=== PATIENT | male | born 1955 | race Caucasian/White ===

== ENCOUNTER 2020-10-12 16:12 | Emergency (ER) | payer OTHER, MEDICARE, SELFPAY ==
--- NOTE | ~2020-10-12 | XR_ITS ---
EXAMINATION: XR chest 1V portable 10/12/2020 17:12 INDICATION: Cough with shortness of breath PROCEDURE: AP portable chest COMPARISON: Comparison to multiple prior studies sequentially, with oldest reviewed study dated 05/07. FINDINGS: The lungs are clear. Status post median sternotomy for CABG. Cardiomegaly. There are residu al epicardial pacing leads. There are no pleural effusions. There is no pneumothorax suspected. IMPRESSION: 1: NO ACUTE CARDIOPULMONARY DISEASE. Reviewed, dictated and finalized at location A. [facility]
--- NOTE | 2020-10-12 16:40 | ECG_ITS ---
Measurements Intervals [place] Rate: 84 P: AR: 0 QRS: -54 QRSD: 152 T: 78 QT: 384 QTc: 454 Interpretive Statements ATRIAL FIBRILLATION RIGHT BUNDLE BRANCH BLOCK LEFT ANTERIOR FASCICULAR BLOCK ABNORMAL ECG Electronically Signed On 10-13-2020 7:49:54 CUSTOMER EXPERIENCE MANAGER by Romero Echavarria D.O.
[2020-10-12 16:41] VITALS: BP 177/74; PULSE 83; RESP 20; TEMP 36.7
[2020-10-12 17:04] LABS: Basophils Absolute Auto 0.03 K/mm3 (0.00-0.10); Basophils Percent Auto 0.2 % (0.0-1.0); Eosinophils Absolute Auto 0.23 K/mm3 (0.02-0.50); Eosinophils Percent Auto 1.6 % (1.0-6.0); Hematocrit 40.7 % (37.0-46.0); Hemoglobin 13.6 g/dL (12.4-15.3); Immature Granulocyte Absolute 0.07 K/mm3 (0.00-0.00); Immature Granulocyte Percent A 0.5 % (0.0-0.0); Lymphocytes Absolute Auto 1.92 K/mm3 (1.10-4.50); Lymphocytes Percent Auto 13.7 % (18.0-42.0); Mean Corpuscular HGB Conc 33.4 g/dL (32.0-36.0); Mean Corpuscular Hemoglobin 32.8 pg (27.0-31.0); Mean Corpuscular Volume 98.1 fL (78.0-102.0); Mean Platelet Volume 11.6 fl (8.7-11.0); Monocytes Absolute Auto 1.43 K/mm3 (0.10-0.90); Monocytes Percent Auto 10.2 % (2.0-11.0); Neutrophils Absolute Auto 10.3 K/mm3 (1.7-7.2); Neutrophils Percent Auto 73.8 % (50.0-70.0); Platelet Count Result 290 K/mm3 (150-420); Red Blood Count 4.15 M/mm3 (4.70-6.10); Red Cell Distribution Width 13.5 % (11.6-14.4)
[2020-10-12 17:12] LABS: Appearance Urine Clear (Clear); Bilirubin Urine Negative (Negative); Color Urine Yellow (Yellow); Glucose Urine UA Negative (Negative); Ketones Urine Negative (Negative); Leukocyte Esterase Ur Negative LEU/UL (Negative); Nitrate Urine Negative (Negative); Protein Urine 2+ (Negative); Urobilinogen Urine 0.2 mg/dL (0.2-1.0)
--- NOTE | 2020-10-12 17:15 | ED.SOB ---
HPI - SOB/Dyspnea General Chief Complaint: Upper Respiratory Infection Stated Complaint: bronchitis Time Seen by Provider: 10/12/20 17:15 Source: patient Mode of arrival: ambulatory Limitations: no limitations History of Present Illness HPI Narrative: 65-year-old man with a history of type 2 diabetes, ALEX and HTN who comes the emergency department complaining of 3 days of shortness of breath and cough which is productive of brown sputum. States he also has a sore throat and postnasal drainage. Patient states that he has had no fever, chest pain, leg swelling, sore throat, anosmia, ageusia or vomiting. He denies any sick exposures or exposures to COVID. He states he is out of the albuterol his doctor has given him to use over the last few years. MD elicited complaint: shortness of breath and cough Pertinent past history: diabetes Onset (ago): day(s) (3) Timing: constant Severity: moderate Exacerbating factors: nothing Relieving factors: nothing Associated symptoms: cough and sputum production Treatment prior to arrival: bronchodilator Related Data Home oxygen amount: none Allergies Allergy/AdvReac Type Severity Reaction Status Date / Time aspartame Allergy Severe Unknown Verified 10/12/20 17:21 cyclobenzaprine [Flexeril] Allergy Intermediate Unknown Verified 10/12/20 17:21 Penicillins Allergy Intermediate Unknown Verified 10/12/20 17:21 Review of Systems Constitutional: Constitutional: Denies chills, Denies fever(s) and Denies weakness Eyes: Eyes: Denies change in vision and Denies photophobia ENT: Denies dysphagia, Reports nasal congestion and Reports sore throat Cardiovascular: Cardiovascular: Denies chest pain and Denies radiating jaw, neck or arm pain Respiratory: Respiratory: Reports cough, Reports dyspnea and Reports wheezing Gastrointestinal: Gastrointestinal: Denies abdominal pain, Denies nausea and Denies vomiting Neurologic: Denies vertigo, Denies dizziness and Denies syncope Hematologic/Lymphatic: Hematologic/Lymphatic: Denies easy bleeding and Denies easy bruising Allergic/Immunologic: Allergic/Immunologic: Denies lip swelling, Denies throat swelling and Denies tongue swelling PMFSH Past Medical History Medical History Hyperlipidemia associated with type 2 diabetes mellitus Hypertension associated with diabetes Major depression, recurrent Obesity, morbid, BMI 50 or higher ALEX (obstructive sleep apnea) Type 2 diabetes mellitus Surgical History Surgical History H/O aortic valve replacement 2014 Social History Social History Smoking status: Former smoker Tobacco type: cigarettes Smoking end date: 10/18/06 Alcohol intake: never Substance use: never Substance use type: does not use Gender identity (if verbalized by the patient): Male Exam Const: General: no acute distress and alert Nutritional Appearance: obese Orientation/consciousness: patient oriented x3 Limitations: no limitations HENMT: Head: normal to inspection Ears: external ears normal, TM's normal bilaterally and EAC's normal General nose exam: Normal nares present Face and sinus: normal facial exam Mouth: Yes moist mucous membranes Throat: posterior oropharynx normal Eyes: Conjunctivae: conjunctivae normal Pupils: Equal, round and reactive pupils present EOM: EOMs intact bilaterally Resp: Effort & Inspection: normal respiratory effort and not labored Auscultation: clear to auscultation bilaterally, no rales, no rhonchi and no wheezes Cardio: Rate: regular rate Rhythm: regular rhythm Heart sounds: no murmurs Skin: General skin exam: normal color, no jaundice and no pallor Rashes: no rashes Neuro: General: patient oriented x3, moves all extremities, no focal motor deficits and CN's II-XI intact bilaterally Speech: normal speech Gait exam (N
[2020-10-12 17:17] LABS: Add Urine Microscopic? YES; Bacteria Urine Trace /hpf; Blood Urine Trace-Intact (Negative); RBC Urine 0-2 /hpf (0-2); Squamous Epithelial Cell Urine Occasional /hpf (Few); WBC Urine 0-3 /hpf (0-3)
[2020-10-12] MEDS: ALBUTEROL SULFATE (*SP) INHALER 4 PUFF INHALATION (17:21)
[2020-10-12 17:22] LABS: Alanine Aminotransferase 38 U/L (16-63); Albumin Level 3.4 g/dL (3.4-5.0); Alkaline Phosphatase 66 U/L (46-116); Anion Gap 11 mmol/L (8-16); Aspartate Amino Transferase 22 U/L (15-37); BNP 132 pg/mL (0-100); Bilirubin,Total 0.5 mg/dL (0.00-1.00); Blood Urea Nitrogen 15 mg/dL (7-18); Calcium 9.5 mg/dL (8.5-10.1); Carbon Dioxide 27 mmol/L (21-32); Chloride 97 mmol/L (98-108); Estimated Glomerular Filt Rate 55; Glucose 135 mg/dL (70-99); Osmolality Calculated 282 mOsm/kg (285-295); Sodium 135 mmol/L (136-145); Total Protein 8.4 g/dL (6.4-8.2); Troponin I 42.5 ng/L (0.00-60.4)
[2020-10-12 17:26] LABS: SARS-CoV-2 Ag Negative (Negative)
[2020-10-12] MEDS: predniSONE 20 MG TABLET 60 MG PO (17:57)
[2020-10-12] MEDS: DOXYCYCLINE HYCLATE 100 MG TABLET PO (17:57)
[2020-10-12 17:58] VITALS: PULSE 82; RESP 20; O2SAT 93
== END 2020-10-12 18:06 | disposition home or self-care (01) ==
PROVIDERS: Emergency Provider Emergency Medicine; PCP Nurse Practitioner Family
DX: J20.9 Acute bronchitis, unspecified (principal)
CPT/HCPCS: 36415; 71045; 80053; 81001; 83880; 84484; 85025; 87040; 87426; 93005; 99283; 99284; A9270; J7512

== ENCOUNTER 2020-12-04 11:51 | Outpatient (CLI) | payer OTHER, MEDICARE, SELFPAY ==
--- NOTE | 2020-12-04 11:55 | ECG_ITS ---
Measurements Intervals [place] Rate: 47 P: 15 CT: 171 QRS: -63 QRSD: 157 T: -14 QT: 449 QTc: 401 Interpretive Statements SINUS BRADYCARDIA ATRIAL PREMATURE COMPLEX RIGHT BUNDLE BRANCH BLOCK LEFT ANTERIOR FASCICULAR BLOCK BASELINE WANDER- V4 ABNORMAL ECG Electronically Signed On 12-04-2020 13:14:18 SENIOR HARDWARE DESIGN ENGINEER by Romero Echavarria D.O.
[2020-12-04 12:05] LABS: Basophils Absolute Auto 0.07 K/mm3 (0.00-0.10); Basophils Percent Auto 0.9 % (0.0-1.0); Eosinophils Absolute Auto 0.29 K/mm3 (0.02-0.50); Eosinophils Percent Auto 3.5 % (1.0-6.0); Hematocrit 41.8 % (37.0-46.0); Hemoglobin 13.9 g/dL (12.4-15.3); Immature Granulocyte Absolute 0.02 K/mm3 (0.00-0.00); Immature Granulocyte Percent A 0.2 % (0.0-0.0); Lymphocytes Absolute Auto 2.56 K/mm3 (1.10-4.50); Lymphocytes Percent Auto 31.1 % (18.0-42.0); Mean Corpuscular HGB Conc 33.3 g/dL (32.0-36.0); Mean Corpuscular Hemoglobin 32.9 pg (27.0-31.0); Mean Corpuscular Volume 99.1 fL (78.0-102.0); Mean Platelet Volume 11.5 fl (8.7-11.0); Monocytes Absolute Auto 0.63 K/mm3 (0.10-0.90); Monocytes Percent Auto 7.7 % (2.0-11.0); Neutrophils Absolute Auto 4.7 K/mm3 (1.7-7.2); Neutrophils Percent Auto 56.6 % (50.0-70.0); Platelet Count Result 231 K/mm3 (150-420); Red Blood Count 4.22 M/mm3 (4.70-6.10); Red Cell Distribution Width 13.5 % (11.6-14.4); White Blood Count 8.2 K/mm3 (4.8-10.8)
[2020-12-04 12:23] LABS: Hemoglobin A1C 6.3 % (<5.7)
[2020-12-04 12:27] LABS: Creatinine Urine 16.71 mg/dL (40-278)
[2020-12-04 12:38] LABS: Microalbumin Urine Random 126.5 mg/L
[2020-12-04 13:37] LABS: Alanine Aminotransferase 41 U/L (16-63); Albumin Level 3.8 g/dL (3.4-5.0); Alkaline Phosphatase 71 U/L (46-116); Anion Gap 7 mmol/L (8-16); Aspartate Amino Transferase 28 U/L (15-37); Bilirubin,Total 0.4 mg/dL (0.00-1.00); Blood Urea Nitrogen 17 mg/dL (7-18); Calcium 9.7 mg/dL (8.5-10.1); Carbon Dioxide 33 mmol/L (21-32); Chloride 100 mmol/L (98-108); Cholesterol 209 mg/dL (0-200); Estimated Glomerular Filt Rate > 60; Glucose 118 mg/dL (70-99); HDL Direct 46 mg/dL (40-60); LDL Cholesterol Calculated 117 mg/dL (<130); Osmolality Calculated 292 mOsm/kg (285-295); Potassium 4.5 mmol/L (3.5-5.1); Sodium 140 mmol/L (136-145); Total Protein 7.5 g/dL (6.4-8.2); Triglycerides 232 mg/dL (0-150)
--- NOTE | 2020-12-06 18:42 | WPDHOLTEREM ---
Holter/Event Monitor Holter/Event Monitor Date of procedure: 12/04/20 Procedure Type: 48 hour holter monitor Indications: Syncope Conclusion: 1. 48 hour holter monitor on 12/04/20. 2. Predominant rhythm is sinus or ectopic atrial rhythm. HR range 39-103 bpm; average HR 59 bpm. 3. There are 8,450 premature supraventricular complexes, 655 supraventricular couplets, and 3 supraventricular triplets. No supraventricular tachycardia or evidence of atrial fibrillation on available strips. 4. There are 883 premature ventricular complexes, 98 ventricular couplets, 18 ventricular bigeminy and 16 ventricular trigeminy. No ventricular tachycardia. 5. Left bundle branch block. The longest pause is 2.9 seconds at 22:49 and 22:59. 6. No symptoms available for correlation.
== END 2020-12-04 11:52 | disposition home or self-care (01) ==
PROVIDERS: PCP Nurse Practitioner Family; Visit Provider Nurse Practitioner Family
DX: R00.1 Bradycardia, unspecified (principal); R55 Syncope and collapse; I10 Essential (primary) hypertension; E11.59 Type 2 diabetes mellitus with other circulatory complications; E78.5 Hyperlipidemia, unspecified
CPT/HCPCS: 36415; 80053; 80061; 82043; 83036; 85025; 93005; 93225; 93226

== ENCOUNTER 2020-12-09 13:25 | Emergency (ER) | payer OTHER, MEDICARE, SELFPAY ==
--- NOTE | ~2020-12-09 | XR_ITS ---
EXAMINATION: XR chest 1V portable EXAM DATE: 12/09/2020 14:19 INDICATION: Syncope, extreme bradycardia. TECHNIQUE: Portable AP frontal chest x-ray was obtained. Comparison is made to prior examination from 10/12/2020. FINDINGS: The lungs are clear. There are no pleural effusions. The cardiac silhouette is enlarged. There is pulmonary vascular congestion. Sternotomy wires are present without findings to suggest ster nal dehiscence. There is no pneumothorax suspected. The bones and soft tissues are unremarkable. There is no significant interval change. IMPRESSION: Cardiomegaly, pulmonary vascular congestion. Reviewed, dictated and finalized at location B. MEASUREMENT ENGINEER
[2020-12-09 13:42] VITALS: BP 161/59; PULSE 45; RESP 20; TEMP 37; O2SAT 97
--- NOTE | 2020-12-09 13:45 | ED.SYNCOPE ---
HPI - Syncope General Chief Complaint: Arrhythmia/Palpitations Stated Complaint: ambulance Time Seen by Provider: 12/09/20 13:44 Source: patient, EMS and RN notes reviewed Mode of arrival: EMS Limitations: no limitations History of Present Illness HPI narrative: patient states he was walking down the [place] in his home and he had to use the wall to hold himself up because he felt like he was going to pass out. He said he has had a couple of these episodes last fall. He states that he had an aortic valve replacement years ago and at that time they recommended that he get a pacemaker but because of complications after his surgery he never had 1 placed. He recently had Holter monitor that was completed on Wednesday now 2 days ago. There was a 48 hour Holter monitor and he has not heard about the results yet. He does not recall that he ever passed out. complaint: almost passed out Onset (ago): minute(s) (20) -: second(s) Prodromal symptoms: lightheaded Injuries sustained associated with event: none Current symptoms: lightheaded History: previous syncopal episode Treatments prior to arrival: none Related Data Home Medications Medication Instructions Recorded Confirmed aspirin [Adult Aspirin Regimen] 81 mg PO QPM 12/09/20 12/09/20 atorvastatin 10 mg PO QPM 12/09/20 12/09/20 carvedilol [Coreg] 6.25 mg PO BID 12/09/20 12/09/20 Allergies Allergy/AdvReac Type Severity Reaction Status Date / Time aspartame Allergy Severe Unknown Verified 12/04/20 10:58 cyclobenzaprine [Flexeril] Allergy Intermediate Unknown Verified 12/04/20 10:58 Penicillins Allergy Intermediate Unknown Verified 12/04/20 10:58 Review of Systems Review of Systems: All systems reviewed & are unremarkable except as noted in HPI and below Constitutional: Constitutional: Denies chills and Denies fever(s) Eyes: Eyes: Reports no additional eye complaints ENT: Reports system reviewed and no additional complaints, except as documented Cardiovascular: Cardiovascular: Reports no additional cardiovascular complaints Respiratory: Respiratory: Reports no additional respiratory complaints [facility] Past Medical History Medical History (Updated 12/09/20 @ 23:17 by Padma Brown MD) Dyslipidemia Essential hypertension Gout Major depression, recurrent Morbid obesity Obstructive sleep apnea treated with BiPAP Type 2 diabetes mellitus Surgical History Surgical History (Updated 12/09/20 @ 21:36 by Wendy Cooper PA-C) History of aortic valve replacement (~2014) Family History Family History Father Kidney disease Mother Diabetes mellitus Heart disease Social History Social History (Updated 12/09/20 @ 21:37 by Wendy Cooper PA-C) Social History: Surrogate decision maker: Louisa Allred, . Code status: Full code. Smoking packs per day: 2 Smoking cigarettes per day: 40.0 Years smoked: 30 Smoking pack-years: 60.00 Smoking status: Former smoker Tobacco type: cigarettes Smoking end date: 10/18/06 Alcohol intake: former Substance use: never Substance use type: does not use Additional living arrangements comments: The patient lives in [place] with his .. Additional occupation/education comments: Retired. Gender identity (if verbalized by the patient): Male Spiritual care concerns: No Exam Const: General: healthy appearing and no acute distress Nutritional Appearance: well nourished and obese morbidly obese Orientation/consciousness: patient oriented x3 HENMT: Head: normal to inspection Ears: external ears normal General nose exam: Normal external nose present Face and sinus: normal facial exam Mouth: Yes lip normal and Yes moist mucous membranes Eyes: Conjunctivae: conjunctivae normal Pupils: Equal, round and reactive pupils present EOM: EOMs intact bilaterally Neck: Neck: normal visual inspection Resp:
--- NOTE | 2020-12-09 13:51 | ECG_ITS ---
Measurements Intervals [place] Rate: 45 P: -60 DC: 152 QRS: -50 QRSD: 140 T: -35 QT: 465 QTc: 404 Interpretive Statements SINUS BRADYCARDIA RIGHT BUNDLE BRANCH BLOCK LEFT ANTERIOR FASCICULAR BLOCK BASELINE ARTIFACT- I, II, III, AVL ABNORMAL ECG Electronically Signed On 12-09-2020 14:00:30 RD LAB TECHNICIAN by Romero Echavarria D.O.
[2020-12-09 14:08] LABS: Basophils Absolute Auto 0.05 K/mm3 (0.00-0.10); Basophils Percent Auto 0.5 % (0.0-1.0); Eosinophils Percent Auto 2.1 % (1.0-6.0); Hematocrit 42.1 % (37.0-46.0); Hemoglobin 14.2 g/dL (12.4-15.3); Immature Granulocyte Absolute 0.03 K/mm3 (0.00-0.00); Immature Granulocyte Percent A 0.3 % (0.0-0.0); Lymphocytes Percent Auto 23.9 % (18.0-42.0); Mean Corpuscular HGB Conc 33.7 g/dL (32.0-36.0); Mean Corpuscular Hemoglobin 33.1 pg (27.0-31.0); Mean Corpuscular Volume 98.1 fL (78.0-102.0); Monocytes Absolute Auto 0.66 K/mm3 (0.10-0.90); Monocytes Percent Auto 6.8 % (2.0-11.0); Neutrophils Absolute Auto 6.4 K/mm3 (1.7-7.2); Neutrophils Percent Auto 66.4 % (50.0-70.0); Platelet Count Result 234 K/mm3 (150-420); Red Blood Count 4.29 M/mm3 (4.70-6.10); Red Cell Distribution Width 13.3 % (11.6-14.4); White Blood Count 9.6 K/mm3 (4.8-10.8)
[2020-12-09 14:14] LABS: Add Urine Microscopic? YES; Appearance Urine Clear (Clear); Bilirubin Urine Negative (Negative); Blood Urine 2+ (Negative); Color Urine Yellow (Yellow); Glucose Urine UA Negative (Negative); Ketones Urine Negative (Negative); Leukocyte Esterase Ur Negative LEU/UL (Negative); Nitrate Urine Negative (Negative); Protein Urine 1+ (Negative); Urobilinogen Urine 0.2 mg/dL (0.2-1.0)
[2020-12-09 14:20] LABS: Bacteria Urine 1+ /hpf; RBC Urine 21-50 /hpf (0-2); Squamous Epithelial Cell Urine Few /hpf (Few); WBC Urine 0-3 /hpf (0-3)
[2020-12-09 14:21] LABS: Prothrombin Time 10.5 Seconds (9.50-12.10)
[2020-12-09 14:22] VITALS: PULSE 46
--- NOTE | 2020-12-09 14:23 | PC.NURSE ---
asked pt regarding code status. you need to ask my , she is coming here from [facility] .
[2020-12-09 14:25] LABS: BNP 99.7 pg/mL (0-100)
--- NOTE | 2020-12-09 14:28 | PC.NURSE ---
noted decrease intermittantly with heart rate, discussed again with pt regarding code status. pt states yes for cpr FULL CODE.
[2020-12-09 14:29] LABS: Alanine Aminotransferase 38 U/L (16-63); Albumin Level 3.3 g/dL (3.4-5.0); Alkaline Phosphatase 81 U/L (46-116); Anion Gap 10 mmol/L (8-16); Aspartate Amino Transferase 22 U/L (15-37); Bilirubin,Total 0.3 mg/dL (0.00-1.00); Blood Urea Nitrogen 18 mg/dL (7-18); Calcium 9.5 mg/dL (8.5-10.1); Carbon Dioxide 27 mmol/L (21-32); Chloride 102 mmol/L (98-108); Estimated CRCL calculation 67 ml/min; Estimated Glomerular Filt Rate 50; Glucose 185 mg/dL (70-99); Magnesium 1.7 mg/dL (1.8-2.4); Osmolality Calculated 294 mOsm/kg (285-295); Potassium 3.8 mmol/L (3.5-5.1); Sodium 139 mmol/L (136-145); Total Protein 7.6 g/dL (6.4-8.2); Troponin I 34.6 ng/L (0.00-60.4)
--- NOTE | 2020-12-09 14:41 | PC.NURSE ---
call placed to [facility] , spoke with speedy Sharpepowerhouse engineer. awaiting cardiology call back.
--- NOTE | 2020-12-09 14:42 | PC.NURSE ---
recurrent bradycardia with pauses. pt becomes lightheaded with pauses.
--- NOTE | 2020-12-09 15:22 | PC.NURSE ---
call placed to [facility] pt accepted by dr montenegro, awaiting hospitalist to return call for placement. pt resting per cot.
[2020-12-09 15:25] VITALS: BP 153/51; PULSE 44; RESP 20; O2SAT 97
--- NOTE | 2020-12-09 15:35 | PC.NURSE ---
defib/pacer pads applied as requested per dr hassan
[2020-12-09 16:02] VITALS: BP 176/95; PULSE 44; RESP 20; TEMP 37.1; O2SAT 95
--- NOTE | 2020-12-09 16:20 | PC.NURSE ---
report to justin nguyen at [place]. [facility] called for transport. awaiting arrival . at bedside. continues with symptomatic bradycardia( lightheaded, shaky when heart rate drops lower).
--- NOTE | 2020-12-09 16:46 | PC.NURSE ---
report to rosalva, ems staff.
== END 2020-12-09 16:47 | disposition short-term general hospital (02) ==
PROVIDERS: Emergency Provider Emergency Medicine; PCP Nurse Practitioner Family
DX: R00.1 Bradycardia, unspecified (principal); I10 Essential (primary) hypertension; E66.01 Morbid (severe) obesity due to excess calories; E78.5 Hyperlipidemia, unspecified; E11.9 Type 2 diabetes mellitus without complications; F33.9 Major depressive disorder, recurrent, unspecified; M10.9 Gout, unspecified; G47.33 Obstructive sleep apnea (adult) (pediatric); Z87.891 Personal history of nicotine dependence; Z79.82 Long term (current) use of aspirin; Z95.2 Presence of prosthetic heart valve
CPT/HCPCS: 36415; 71045; 80053; 81001; 83735; 83880; 84484; 85025; 85610; 93005; 99285

== ENCOUNTER 2020-12-09 17:18 | Inpatient (IN) | payer OTHER, MEDICARE, SELFPAY ==
[2020-12-09] VITALS (10 sets, daily range): BP systolic 132–156; BP diastolic 52–94; PULSE 60–86; RESP 15–22; TEMP 36.8–37; O2SAT 94–98; BMI 52.5
--- NOTE | ~2020-12-09 | XR_ITS ---
EXAMINATION: XR chest 1V portable DATE: 12/10/2020 17:50 INDICATION: Pacer placement. TECHNIQUE: A single frontal view of the chest was obtained on 2 radiographs. COMPARISON: Chest single view 12/09/2020, chest CT 11/16/2014 FINDINGS: There are mild airspace opacities in the lower lung zones. No pleural effusion or pneumotho rax. Cardiomegaly is noted. Median sternotomy wires are noted. There is a left chest wall pacer with leads in the right atrium and right ventricle. Epicardial pacer wires are noted. IMPRESSION: 1. Mild airspace opacities in the lower lung zones, consistent with atelectasis versus pneumonia. 2. Cardiomegaly. Reviewed, dictated and finalized at location A. MATIC HOIST OPERATOR
--- NOTE | ~2020-12-09 | XR_ITS ---
EXAMINATION: XR chest 2V DATE: 12/11/2020 17:07 INDICATION: Pacer placement. TECHNIQUE: Frontal and lateral views of the chest were obtained. COMPARISON: Chest single view 12/10/2020, chest CT 11/16/2014 FINDINGS: There is no pneumonia, pleural effusion, or pneumothorax. Cardiomegaly is noted. There are changes of heart valve replacement. There is a left chest wall pacer with leads in the right atrium a nd right ventricle. Epicardial pacer wires are noted. IMPRESSION: 1. Cardiomegaly. Reviewed, dictated and finalized at location A. DEND DEPOSIT VOUCHER CLERK IMPRESSION: 1. Cardiomegaly.
--- NOTE | 2020-12-09 17:15 | PC.NURSE ---
patient here via EMS with bradycardia being externally paced. see initial notes. initial assessment done. assessments documented. alert. oriented. hx of AVR in 2014 with reported tissue valve. not on anticoagulants. has needed PPM since that time but hx of infection. increased syncopal episodes lately with abnormal monitor. today EMS was initially called around 1300 for syncope. patient taken to [facility] with bradycardia. HR in the 40's but SB with frequent pauses. noted to have diaphoresis and dizziness. patient being transferred to this ICU as direct admission this afternoon by EMS when patient's HR dropped to 26 requiring external pacing. now here in our ED.
--- NOTE | 2020-12-09 17:23 | ECG_ITS ---
Measurements Intervals [place] Rate: 29 P: MS: 0 QRS: -59 QRSD: 165 T: 89 QT: 494 QTc: 346 Interpretive Statements SINUS RHYTHM WITH COMPLETE HEART BLOCK SLOW JUNCTIONAL ESCAPE RHYTHM LEFT AXIS DEVIATION RIGHT BUNDLE BRANCH BLOCK LEFT ANTERIOR FASCICULAR BLOCK ABNORMAL ECG Electronically Signed On 12-16-2020 8:47:29 WET END SUPERVISOR by Romero Echavarria D.O.
--- NOTE | 2020-12-09 17:25 | PC.NURSE ---
external pacer turned off to do EKG. ED provider in room. see EKG. patient remained alert and oriented. placed on our defib paced and external pacer turned back on at rate of 60 at demand with 60m. tolerating well. waiting for final decision for temporary pacer today or plan for PPM.
--- NOTE | 2020-12-09 17:53 | WPDMODSED ---
Moderate Sedation Note-Pt Data Patient Data Diagnosis: Syncope with acquired complete heart block Present Complaint: syncope Procedure to be performed/Plan: temporary transvenous pacemaker Allergies Allergy/AdvReac Type Severity Reaction Status Date / Time aspartame Allergy Severe Unknown Verified 12/04/20 10:58 cyclobenzaprine [Flexeril] Allergy Intermediate Unknown Verified 12/04/20 10:58 Penicillins Allergy Intermediate Unknown Verified 12/04/20 10:58 Home Medications Medication Instructions Recorded Confirmed Type aspirin 81 mg tablet,delayed 81 mg PO DAILY #90 tablet 03/27/20 12/09/20 Rx release lisinopril 40 mg tablet 40 mg PO DAILY #90 tablet 09/09/20 12/09/20 Rx metformin 1,000 mg tablet 1,000 mg PO BID #180 tablet 09/30/20 12/09/20 Rx sertraline 100 mg tablet 100 mg PO DAILY #90 tablet 09/30/20 12/09/20 Rx albuterol sulfate 2 puff INHALATION Q6H PRN #18 g 10/12/20 12/09/20 Rx benzonatate 200 mg capsule 200 mg PO BID PRN #20 cap 10/14/20 12/09/20 Rx carvedilol 6.25 mg tablet See Rx Instructions .ROUTE 10/30/20 12/09/20 Rx .COMPLEX #60 tablet bumetanide 1 mg tablet 1 mg PO DAILY #90 tablet 11/26/20 12/09/20 Rx allopurinol 300 mg tablet 300 mg PO DAILY #30 tablet 11/29/20 12/09/20 Rx atorvastatin 10 mg tablet 10 mg PO DAILY #30 tablet 12/04/20 12/09/20 Rx Sedation/Anesthesia: No previous sedation/anesthesia problems (including family history). [facility] Past Medical History Medical History Hyperlipidemia associated with type 2 diabetes mellitus Hypertension associated with diabetes Major depression, recurrent Obesity, morbid, BMI 50 or higher ALEX (obstructive sleep apnea) Type 2 diabetes mellitus Surgical History Surgical History H/O aortic valve replacement 2014 Social History Social History Smoking status: Former smoker Tobacco type: cigarettes Smoking end date: 10/18/06 Alcohol intake: never Substance use: never Substance use type: does not use Gender identity (if verbalized by the patient): Male Mod Sed Physical Exam Physical Exam Pre Procedural Exam: Normal: Throat, Airway, Lungs, Neuro Exam and Extremities and Variation: Appearance ( morbidly obese white male), Neck ( cannot assess for JVD given obesity), Heart Size ( PMI not palpable), Heart Rate ( bradycardic) and Heart Rhythm ( sinus rhythm with complete heart block) Hours since solid foods: 12 Hours since liquid intake: 12 ASA Classification/Sedation ASA Classification/Sedation ASA Class: II Emergent: No Risks: Risks, benefits and alternatives explained and patient/family accepted plan for sedation. Patient re-evaluated immediately prior to sedation.
--- NOTE | 2020-12-09 18:02 | PC.NURSE ---
report given to clinical lab scientist nurses. patient released to their care. patient taken to the clinical lab scientist on ED stretcher
--- NOTE | 2020-12-09 18:15 | P.SEDATION_ITS ---
Moderate Sedation Note-Pt Data Patient Data Diagnosis: acquired complete heart block Allergies Allergy/AdvReac Type Severity Reaction Status Date / Time aspartame Allergy Severe Unknown Verified 12/04/20 10:58 cyclobenzaprine [Flexeril] Allergy Intermediate Unknown Verified 12/04/20 10:58 Penicillins Allergy Intermediate Unknown Verified 12/04/20 10:58 Home Medications Medication Instructions Recorded Confirmed Type aspirin 81 mg tablet,delayed 81 mg PO DAILY #90 tablet 03/27/20 12/09/20 Rx release lisinopril 40 mg tablet 40 mg PO DAILY #90 tablet 09/09/20 12/09/20 Rx metformin 1,000 mg tablet 1,000 mg PO BID #180 tablet 09/30/20 12/09/20 Rx sertraline 100 mg tablet 100 mg PO DAILY #90 tablet 09/30/20 12/09/20 Rx albuterol sulfate 2 puff INHALATION Q6H PRN #18 g 10/12/20 12/09/20 Rx benzonatate 200 mg capsule 200 mg PO BID PRN #20 cap 10/14/20 12/09/20 Rx carvedilol 6.25 mg tablet See Rx Instructions .ROUTE 10/30/20 12/09/20 Rx .COMPLEX #60 tablet bumetanide 1 mg tablet 1 mg PO DAILY #90 tablet 11/26/20 12/09/20 Rx allopurinol 300 mg tablet 300 mg PO DAILY #30 tablet 11/29/20 12/09/20 Rx atorvastatin 10 mg tablet 10 mg PO DAILY #30 tablet 12/04/20 12/09/20 Rx Sedation/Anesthesia: No previous sedation/anesthesia problems (including family history). [facility] Past Medical History Medical History Hyperlipidemia associated with type 2 diabetes mellitus Hypertension associated with diabetes Major depression, recurrent Obesity, morbid, BMI 50 or higher ALEX (obstructive sleep apnea) Type 2 diabetes mellitus Surgical History Surgical History H/O aortic valve replacement 2014 Social History Social History Smoking status: Former smoker Tobacco type: cigarettes Smoking end date: 10/18/06 Alcohol intake: never Substance use: never Substance use type: does not use Gender identity (if verbalized by the patient): Male ASA Classification/Sedation ASA Classification/Sedation Risks: Risks, benefits and alternatives explained and patient/family accepted plan for sedation. Patient re-evaluated immediately prior to sedation.
--- NOTE | 2020-12-09 18:34 | WPDCARDPROC ---
Cardiac Cath Procedure Note Date of procedure:: 12/09/20 Performing physician:: Manuel Masterson MD Indication:: acquired complete heart block Brief clinical history:: this is a 65-year-old man who underwent aortic valve replacement for severe aortic regurgitation in 2014. At that time he had normal coronary angiograms. He now has been experiencing syncopal episodes of recent onset and was found in I emergency room at [facility] to have high-grade AV block. He was transferred here with a transcutaneous pacemaker in place but it was not capturing reliably. I was therefore asked to come in and put a temporary pacing wire in. Procedure Procedure performed:: Temporary transvenous pacemaker Sedation/Medication given:: no sedation Access site:: right femoral vein Estimated blood loss:: minimal Procedure note:: patient was brought to the cardiac catheterization lab where the right femoral triangle was prepared and draped in the usual fashion. Anesthesia was provided with 1% lidocaine infiltrated locally. Using the modified Seldinger technique a 6 Macanese sheath was placed into the femoral vein. Following this I used a balloon tipped transvenous pacing wire to be placed in the venous circulation into the right atrium, across the tricuspid valve and into the right ventricular apex. The balloon was deflated and the lead was imbedded into the apex of the RV. Following this we connected it to the temporary transvenous generator and the device was set at 80 beats per minute. Threshold was checked and was less than 0.1 volts. Finally device was programmed at 80 beats per minute with an output of 3 volts. The temporary transvenous pacing patches were then taken off and disconnected. Patient will be taken to the ICU for recovery in anticipation of permanent pacemaker implant likely tomorrow. Findings:: High-grade AV block Conclusion:: acquired complete heart block with implantation of a temporary transvenous pacemaker from the right femoral vein emergently as described above for control of the cardiac rhythm in this gentleman with recurrent syncope and complete heart block. Manuel Masterson MD [facility]
--- NOTE | 2020-12-09 19:08 | PM.CNCAR ---
Assessment and Plan Assessment and plan (1) Syncope: Code(s): R55 - Syncope and collapse Status: Acute Assessment and Plan: Due to conduction abnormalities/complete heart block. (2) Hyperlipidemia associated with type 2 diabetes mellitus: Code(s): E11.69 - Type 2 diabetes mellitus with other specified complication; E78.5 - Hyperlipidemia, unspecified Status: Acute Assessment and Plan: On statin. (3) Hypertension associated with diabetes: Code(s): E11.59 - Type 2 diabetes mellitus with other circulatory complications; I10 - Essential (primary) hypertension Status: Acute Assessment and Plan: Stable. (4) Obesity, morbid, BMI 50 or higher: Code(s): E66.01 - Morbid (severe) obesity due to excess calories Status: Acute (5) ALEX (obstructive sleep apnea): Code(s): G47.33 - Obstructive sleep apnea (adult) (pediatric) Status: Acute (6) Complete heart block: Code(s): I44.2 - Atrioventricular block, complete Status: Acute Assessment and Plan: Notified Dr. Masterson for temporary pacemaker this evening. Ultimately will need permanant pacemaker. He is on Coreg which could contribute some to bradycardia and AV block but generally not to this extent. Will stop Coreg. (7) History of aortic valve replacement with bioprosthetic valve: Code(s): Z95.3 - Presence of xenogenic heart valve Status: Acute Assessment and Plan: Obtain echo. History of Present Illness History of Present Illness Consult date/time: 12/09/20 19:08 Reason for consult: Symptomatic bradycardia. 65 yr old man who was a cardiology patient of Dr. Gaines who he has not seen in 2 years presented to [place] with recurrent dizziness/syncope. He has passed out twice in last few months. He has a history or bioprothetic AVR in 2015 at [facility], hypertension, dyslipidemia, DM, obesity, ALEX. Initially in [facility] ED his EKG shows sinus bradycardia at 45 bpm with RBBB, LAFB, then it changed to complete heart block in 20's bpm. He was started on transcutaneous pacing and it would at times not capture. En route in ambulance he was noted not to capture and HR dropped and noted a low BP of 70's systolic. Upon his arrival to our ED, he was paced and had BP 150's systolic. His underlying rhythm is sinus rhythm with complete heart block in 20's bpm. He was no longer having dizziness. Denies chest pain or sob. Spoke with Dr. Masterson who had to return to hospital as he had just left to come in and place a temporary pacemaker. Reason For Visit: bradycardia Review of Systems Constitutional: Constitutional: Reports as per HPI, Denies chills and Denies fatigue Cardiovascular: Cardiovascular: Reports as per HPI, Denies chest pain, Reports lightheadedness and Denies dyspnea Respiratory: Respiratory: Reports as per HPI and Denies dyspnea Gastrointestinal: Gastrointestinal: Reports as per HPI and Denies abdominal pain Genitourinary: Genitourinary: Reports as per HPI and Denies dysuria Musculoskeletal: Musculoskeletal: Reports as per HPI Neurologic: Reports as per HPI, Reports dizziness and Reports syncope PMFSH Past Medical History Medical History Hyperlipidemia associated with type 2 diabetes mellitus Hypertension associated with diabetes Major depression, recurrent Obesity, morbid, BMI 50 or higher ALEX (obstructive sleep apnea) Type 2 diabetes mellitus Surgical History Surgical History H/O aortic valve replacement 2014 Social History Social History Smoking status: Former smoker Tobacco type: cigarettes Smoking end date: 10/18/06 Alcohol intake: never Substance use: never Substance use type: does not use Gender identity (if verbalized by the patient): Male Meds Home Medications
--- NOTE | 2020-12-09 19:57 | PC.NURSE ---
This patient, Primitivo Allred, was admitted to Intensive Care Unit-icu 8 on 12/09/2020 at 1900. Patient/family oriented to hospital policies and general routines including ID bracelet, bed and alarms, visiting hours, pain management, procedures, bathroom and other care routines, personal items, smoking policy, room service/diet, and visiting hours. Information on how to activate the Rapid Response Team has been discussed. Patient/Family are encouraged to report perceived risks to care and to ask questions if they do not understand what they are told or what they should do.
--- NOTE | 2020-12-09 20:15 | PM.IMHP ---
H&P: HPI History of Present Illness Date/Time: 12/09/20 17:15. The patient was seen and evaluated in the emergency department upon arrival. Chief Complaint: Symptomatic bradycardia with sinus pauses. Narrative: This is a 65-year-old male with morbid obesity, obstructive sleep apnea, hypertension, hyperlipidemia, and type 2 diabetes mellitus who was being transported to [facility] as a direct admission to the intensive care unit when he went into complete heart block with hypotension and was diverted to the emergency department. The patient had a bioprosthetic tissue aortic valve replacement in 2014 at [facility] for significant aortic stenosis and at that time the plan was to insert pacer wires that he would most likely need at some point in time however that was not able to be done as the procedure was complicated by infection. The patient has known to some degree that he has sick sinus syndrome however when he began having syncopal episodes in June 2020, he did not seek treatment. Recently he has been having several episodes of lightheadedness a day with frequent near syncopal episodes. Luckily his primary care provider refused to refill his prescription medications without an office visit and at that time he mentioned these frequent episodes. A 48 hour event monitor was ordered which showed multiple sinus pauses up to 2.9 seconds. In any regard, he was having increasing near syncopal episodes today and presented to the emergency department in [place]. He was found to have a high degree AV block and transfer to [place] was initiated. Dr. Echavarria (cardiology) was consulted and he indicated to the nursing excavating supervisor that he would see the patient in consultation. I was then asked to admit the patient to the hospitalist service but was reluctant to do so without the superintendent marine speaking with the ED physician as I felt that an ethylbenzene cracking supervisor needed to be involved in the transfer process should his condition deteriorate. I voiced concerns to the power house engineer who spoke with the superintendent marine,and he felt comfortable taking the patient in transfer without any other recommendations or consulting Interventional Cardiology. Dr. Boone agreed to accept the patient to the ICU, and I requested that Dr. Gloria sned the patient via ACLS ambulance with pacer pads in place and atropine at bedside. En route to the hospital, the patient became profoundly bradycardic in the 20s with near loss of consciousness and hypotension, and he was diverted to the [place] emergency department. Transcutaneous pacing was not capturing reliably and he is now status post temporary transvenous pacemaker per Dr. Masterson. At the time my evaluation the patient complains of discomfort from the transcutaneous pacing but he has no other specific complaints. He is not lightheaded at this time and denies vertigo, chest pain, palpitations, shortness of breath, nausea, vomiting, and sweats. [facility] Past Medical History Medical History (Updated 12/09/20 @ 21:40 by Wendy Cooper PA-C) Dyslipidemia Essential hypertension Gout Major depression, recurrent Morbid obesity Obstructive sleep apnea treated with BiPAP Type 2 diabetes mellitus Surgical History Surgical History (Updated 12/09/20 @ 21:36 by Wendy Cooper PA-C) History of aortic valve replacement (~2014) Family History Family History Father Kidney disease Mother Diabetes mellitus Heart disease Social History Social History (Updated 12/09/20 @ 21:37 by Wendy Cooper PA-C) Social History: Surrogate decision maker: Louisa Allred, . Code status: Full code. Smoking packs per day: 2 Smoking cigarettes per day: 40.0 Years smoked: 30 Smoking pack-years: 60.00 Smoking status: Former smoker Tobacco type: cigarettes Smoking end date: 10/18/06 Alcohol intake: former Substance us
[2020-12-09 21:21] LABS: Glucose Point of Care 99 (65-105)
[2020-12-09] MEDS: ACETAMINOPHEN 325 MG TABLET 650 MG PO (22:58)
--- NOTE | 2020-12-09 23:01 | ED.ARRPALP ---
HPI - Arrhythmia/Palpitations General Chief Complaint: Arrhythmia/Palpitations Stated Complaint: bradycardia Time Seen by Provider: 12/09/20 17:31 Source: patient and EMS Mode of arrival: EMS Limitations: no limitations History of Present Illness HPI narrative: This is a 65 year old male with history of aortic valve replacement, gout, hyperlipidemia, DM who presents via EMS from [place] [facility] for evaluation of bradycardia. PAtient reports he has been having episodes of syncope. He had a holter monitor 5 days ago that showed sinus pauses. Today patient was evaluated in [place] ER for episodes of near syncope. He was found to have HR in the 20s and 30s per ER note at [place]. He was accepted by the hospitalist service with Dr. Echavarria(cardiology) consulting. He was being transferred to the ICU. In route to [place], patient became diaphoretic, dizzy, lethargic and his heart rated dropped into the 20s. EMS gave patient versed and they started transcutaneously pacing patient. He arrived awake and alert. HE denies dizziness , chest pain or shortness of breath. His only complaint is pain from external pacing. Prior to patient's arrival to ER, Dr. Echavarria was notified of change in patient condition. He states he has called the utilization specialist. PAtient reports his software sales consultant is Dr. Gaines but he has not seen him in 2 years. He would like Dr. Echavarria to be his software sales consultant because he will seen patient in [place]. Related Data Home Medications Medication Instructions Recorded Confirmed aspirin [Adult Aspirin Regimen] 81 mg PO QPM 12/09/20 12/09/20 atorvastatin 10 mg PO QPM 12/09/20 12/09/20 carvedilol [Coreg] 6.25 mg PO BID 12/09/20 12/09/20 Allergies Allergy/AdvReac Type Severity Reaction Status Date / Time aspartame Allergy Severe Unknown Verified 12/04/20 10:58 cyclobenzaprine [Flexeril] Allergy Intermediate Unknown Verified 12/04/20 10:58 Penicillins Allergy Intermediate Unknown Verified 12/04/20 10:58 Review of Systems Review of Systems: All systems reviewed & are unremarkable except as noted in HPI and below PMFSH Past Medical History Medical History (Updated 12/09/20 @ 23:17 by Padma Brown MD) Dyslipidemia Essential hypertension Gout Major depression, recurrent Morbid obesity Obstructive sleep apnea treated with BiPAP Type 2 diabetes mellitus Surgical History Surgical History (Updated 12/09/20 @ 21:36 by Wendy Cooper PA-C) History of aortic valve replacement (~2014) Family History Family History Father Kidney disease Mother Diabetes mellitus Heart disease Social History Social History (Updated 12/09/20 @ 21:37 by Wendy Cooper PA-C) Social History: Surrogate decision maker: Louisa Allred, . Code status: Full code. Smoking packs per day: 2 Smoking cigarettes per day: 40.0 Years smoked: 30 Smoking pack-years: 60.00 Smoking status: Former smoker Tobacco type: cigarettes Smoking end date: 10/18/06 Alcohol intake: former Substance use: never Substance use type: does not use Additional living arrangements comments: The patient lives in [place] with his .. Additional occupation/education comments: Retired. Gender identity (if verbalized by the patient): Male Spiritual care concerns: No Exam Const: General: no acute distress and alert Orientation/consciousness: patient oriented x3 HENMT: Head: abnormal to inspection Eyes: EOM: EOMs intact bilaterally Chest: Chest palpation & inspection: normal inspection of the chest Resp: Effort & Inspection: normal respiratory effort and no retractions Auscultation: clear to auscultation bilaterally Cardio: Rate: bradycardic Heart sounds: Murmur heart sound present GI: GI Palp: Yes Soft to palpation, No Tenderness to palpation present (GI) and No Guarding due to palpation present (GI) Ausc
[2020-12-10] VITALS (22 sets, daily range): BP systolic 140–174; BP diastolic 70–94; PULSE 64–92; RESP 16–95; TEMP 36.6–37.1; O2SAT 94–100
--- NOTE | 2020-12-10 | ECHO_ITS ---
Patient Info Name: Primitivo Allred Age: 65 years : 1955 Gender: Male Ht: 70 in Wt: 353 lbs BSA: 2.90 m2 HR: 80 bpm BP: 149 / 76 mmHg Heart Rhythm: Paced Technical Quality: Poor Exam Date: 12/10/2020 9:31 AM Exam Location: [facility] Patient Status: Inpatient Admit Date: 12/09/2020 Staff Ordering Physician: Romero Echavarria DO Enterprise Application Analyst: Melo Craven RDCS Attending Provider: Gerard Balderrama MD Referring Physician: Jericho BAJWA; Exam Type: CA echo dop color flow w con Study Info Indications I44.2 - Atrioventricular block, complete Complete two-dimensional, color flow and Doppler transthoracic echocardiogram is performed with contrast to opacify the left ventricle and to improve the deliniation of the left ventricle endocardial borders. Contrast/Agitated Saline Contrast/Ag. Saline: Definity Amount: 3.00 ml Administered By: Katherin Juarez RN Existing IV Access: Yes Reason for Poor Study: patient body habitus History/Risk Factors Complete heart block; BioAVR 2015, HTN, DM2, syncope. Summary 1. Technically suboptimal study due to poor sonographic images. 2. Left ventricular chamber dimension is moderately enlarged. 3. Definity contrast administered improved wall motion interpretation. 4. Left ventricular systolic function is normal, estimated at 55-60%. 5. There is moderately increased left ventricular wall thickness. 6. The left ventricular diastolic function is grade III diastolic dysfunction. 7. E/e' 17 is elevated. 8. The aortic valve is not well visualized. Bioprosthetic aortic valve by history. Left Ventricle Technically suboptimal study due to poor sonographic images. Definity contrast administered improved wall motion interpretation. E/e' 17 is elevated. Left ventricular chamber dimension is moderately enlarged. Left ventricular systolic function is normal, estimated at 55-60%. There is moderately increased left ventricular wall thickness. The left ventricular diastolic function is grade III diastolic dysfunction. Right Ventricle Right ventricular chamber dimension is not well visualized. Left Atria Left atrial chamber dimension is not well visualized. Right Atria Right atrial chamber dimension is not well visualized. Aortic Valve The aortic valve is not well visualized. Bioprosthetic aortic valve by history. There is no aortic valve stenosis based on valve gradients and valve area. There is no aortic valve regurgitation. Pulmonic Valve The pulmonic valve is not well visualized. Mitral Valve There is no mitral valve stenosis. There is no mitral valve regurgitation. Tricuspid Valve The tricuspid valve leaflets are not well visualized. Pericardium/Pleural There is no pericardial effusion. Inferior Vena Cava Inferior vena cava is not well visualized. Aorta The aortic root size at the sinus of Valsalva is not well visualized. Left Ventricular Outflow Tract Name Value Normal LVOT 2D LVOT Diameter 2.14 cm LVOT Doppler LVOT Peak Gradient 9 mmHg LVOT Mean G
[2020-12-10] MEDS: ZOLPIDEM TARTRATE (*CRX) 5 MG TABLET PO (01:06)
[2020-12-10 04:52] LABS: Hematocrit 41.4 % (42.0-52.0); Hemoglobin 13.8 g/dL (14.0-18.0); Mean Corpuscular HGB Conc 33.3 g/dl (32-36); Mean Corpuscular Hemoglobin 33.3 pg (26-34); Platelet Count Result 124 k/mm3 (150-375); Red Blood Count 4.14 M/mm3 (4.6-6.20); Red Cell Distribution Width 13.5 % (11.5-14.5)
[2020-12-10 05:14] LABS: Prothrombin Time 13.3 Seconds (11.1-14.7)
[2020-12-10 05:15] LABS: Partial Thromboplastin Time 29.2 SECONDS (22.3-36.8)
--- NOTE | 2020-12-10 07:48 | PM.PNCARD ---
Progress Note: A&P Assessment and Plan (1) Syncope: Code(s): R55 - Syncope and collapse Status: Deleted Assessment and Plan: Due to conduction abnormalities/complete heart block. (2) Hyperlipidemia associated with type 2 diabetes mellitus: Code(s): E11.69 - Type 2 diabetes mellitus with other specified complication; E78.5 - Hyperlipidemia, unspecified Status: Acute Assessment and Plan: On statin. (3) Hypertension associated with diabetes: Code(s): E11.59 - Type 2 diabetes mellitus with other circulatory complications; I10 - Essential (primary) hypertension Status: Acute Assessment and Plan: High off Coreg. Start Amlodipine 10 mg daily. (4) Obesity, morbid, BMI 50 or higher: Code(s): E66.01 - Morbid (severe) obesity due to excess calories Status: Acute (5) ALEX (obstructive sleep apnea): Code(s): G47.33 - Obstructive sleep apnea (adult) (pediatric) Status: Acute (6) Complete heart block: Code(s): I44.2 - Atrioventricular block, complete Status: Acute Assessment and Plan: Dr. Masterson placed temporary pacemaker on 12/09/20. He is scheduled permanant pacemaker this afternoon with Dr. Masterson. . He is on Coreg which could contribute some to bradycardia and AV block but generally not to this extent. Stopped Coreg. (7) History of aortic valve replacement with bioprosthetic valve: Code(s): Z95.3 - Presence of xenogenic heart valve Status: Acute Assessment and Plan: Obtain echo. Subjective Date/time seen: 12/10/20 07:48 Denies dizziness, chest pain or sob. Back pain from lying flat in one position. Exam Const: General: cooperative, healthy appearing and comfortable Nutritional Appearance: obese Resp: Auscultation: clear to auscultation bilaterally, no crackles, no rales, no rhonchi and no wheezes Cardio: Jugular venous distension: no JVD Rate: regular rate Rhythm: regular rhythm Heart sounds: no murmurs Peripheral pulses: dorsalis pedis present GI: GI Palp: No abdominal tenderness and Yes Soft to palpation Neuro: General: oriented to person, oriented to place and oriented to time Extrem: Right lower extremity: no edema Left lower extremity: no edema Objective Data Vital Signs Vital Signs: Vital Signs - 24 hr 12/09/20 17:10 12/09/20 19:02 12/09/20 19:17 Temperature 98.6 F Pulse Rate 60 80 80 Pulse Rate [Right Pedal (Dorsalis Pedis) Palpation] Respiratory Rate 18 22 H 16 Blood Pressure 142/83 H 152/68 H 132/69 Pulse Oximetry 96 94 96 12/09/20 19:32 12/09/20 19:45 12/09/20 19:46 Temperature Pulse Rate 80 86 80 Pulse Rate [Right Pedal (Dorsalis Pedis) Palpation] Respiratory Rate 16 17 15 Blood Pressure 156/76 H 136/94 H Pulse Oximetry 96 96 12/09/20 19:48 12/09/20 20:00 12/09/20 20:01 Temperature 98.2 F Pulse Rate 80 80 Pulse Rate [Right Pedal (Dorsalis Pedis) Palpation] 80 Respiratory Rate 15 16 Blood Pressure 139/91 H Pulse Oximetry 97 94 12/09/20 22:00 12/10/20 00:00 12/10/20 00:35 Temperature 98 F 98 F Pulse Rate 80 80 80 Pulse Rate [Right Pedal (Dorsalis Pedis) Palpation] 80 Respiratory Rate 16 16 16 Blood Pressure 145/52 H 143/77 H 143/77 H Pulse Oximetry 98 95 95 12/10/20 02:00 12/10/20 04:00 12/10/20 06:00 Temperature 98.4 F Pulse Rate 80 80 80 Pulse Rate [Right Pedal (Dorsalis Pedis) Palpation] 80 Respiratory Rate 16 18 17 Blood Pressure 144/79 H 150/84 H 159/82 H Pulse Oximetry 95 96 95 Intake/Output Intake/Output: Intake & Output 12/07/20 12/08/20 12/09/20 12/10/20 23:59 23:59 23:59 23:59 Intake Total 300 Output Total 850 Balance -550 Meds/Results Medications: Active Medications Generic Name Dose Route Start Last Admin Trade Name Freq PRN Reason Stop Dose Admin Acetaminophen 650 mg 12/09/20 22:31 12/09/20 22:58 Acetaminophen 325 Mg Tablet PO 650 mg Q6H PRN Administration Mild
--- NOTE | 2020-12-10 08:38 | WPDCNINT ---
Assessment and Plan Assessment and plan (1) Complete heart block: Code(s): I44.2 - Atrioventricular block, complete Status: Acute Assessment and Plan: Patient said presented with near syncopal episodes, symptomatic bradycardia with hypotension -in the ER patient was found to be in high degree AV block/complete heart block -cardiology evaluated the patient inserted temporary transvenous pacemaker -patient for permanent pacemaker today cardiology -will obtain echocardiogram (2) Type 2 diabetes mellitus: Code(s): E11.9 - Type 2 diabetes mellitus without complications Status: Acute Assessment and Plan: Continue sliding scale insulin an Accu-Chek (3) Essential hypertension: Code(s): I10 - Essential (primary) hypertension Status: Acute Assessment and Plan: Blood pressures are stable, continue amlodipine, lisinopril bumetanide -continue to monitor (4) ALEX (obstructive sleep apnea): Code(s): G47.33 - Obstructive sleep apnea (adult) (pediatric) Status: Acute Assessment and Plan: BiPAP at night and p.r.n. Additional Plan Discussed with patient and updated with his condition and plan of care. I answered all questions. He is very eager to get his permanent pacemaker today so we can set up. Code status: Full code Critical care time spent: 43 minutes Due to a high probability of clinically significant, life threatening deterioration, the patient required my highest level of preparedness to intervene emergently and I personally spent this critical care time directly and personally managing the patient. This critical care time included obtaining a history; examining the patient; pulse oximetry; ordering and review of studies; arranging urgent treatment with development of a management plan; evaluation of patient's response to treatment; frequent reassessment; and discussions with other providers. It was exclusive of separately billable procedures and treating other patients and teaching time. Please see Assessment and Plan section and the rest of the note for further information on patient assessment and treatment Key Account Coordinator Consult Note Consult date: 12/10/20 Time Seen: 07:04 Reason for consult: High-grade AV block, transvenous temporary pacemaker, syncopal episodes/symptomatic bradycardia HPI: Primitivo Allred is a 65 year old male with significant past medical history of essential hypertension, morbid obesity, obstructive sleep apnea on BiPAP, type 2 diabetes, bioprosthetic tissue aortic valve replacement 2015 presented to the ED when he was being directly admitted to the ICU from [facility] but was taken to the ER as he went into complete heart block and hypotension ENroute to [facility]. Syncopal episodes since June 2020 and did not seek any treatment. Recently has been having several episodes of lightheadedness and frequent near-syncopal episodes. Event monitor showed multiple sinus pauses with up to 2.9 seconds. Due to his increasing anemia syncopal episodes he presented to the ER at [facility] and was found to have a high degree AV block. Upon arrival to the ICU, he was found to be in complete heart block with hypotension, symptomatic bradycardia, cardiology was consulted and placed a transvenous temporary pacemaker. Patient seen and examined this morning in the ICU, currently paced at 80 beats per minute, patient denies any shortness of breath, chest pain, abdominal pain, nausea vomiting. Ages complains that he cannot sit up. Patient was on carvedilol at home along with lisinopril and bumetanide. Patient is hemodynamically stable at this time, adequate urine output, good O2 sats on room air Review of Systems Review of Systems: All systems reviewed & are unremarkable except as noted in HPI and below [facility] Past Medical History Medical History (Updated 12/10/20 @ 09:06 by Domingo Boone MD) Dyslipidemia Essential hypert
[2020-12-10 09:05] LABS: Alanine Aminotransferase 32 U/L (4-50); Alkaline Phosphatase 56 U/L (38-126); Anion Gap 6 mmol/L (8-16); Aspartate Amino Transferase 32 U/L (17-59); Bilirubin,Total 0.5 mg/dL (0.2-1.3); Blood Urea Nitrogen 16 mg/dL (9-20); Calcium 9.1 mg/dL (8.4-10.2); Carbon Dioxide 31 mmol/L (22-30); Chloride 104 mmol/L (98-107); Estimated CRCL calculation 93 ml/min; Estimated Glomerular Filt Rate > 60; Glucose 137 mg/dL (75-110); Magnesium 1.7 mg/dL (1.6-2.3); Potassium 3.9 mmol/L (3.4-5.0); Sodium 141 mmol/L (137-145)
[2020-12-10 09:49] LABS: Glucose Point of Care 129 (65-105)
[2020-12-10] MEDS: ACETAMINOPHEN 325 MG TABLET 650 MG PO ×2 (10:35→22:05)
[2020-12-10] MEDS: BUMETANIDE 1 MG TABLET PO (10:36)
[2020-12-10] MEDS: lisinopriL 20 MG TABLET 40 MG PO (10:36)
[2020-12-10] MEDS: amLODIPine BESYLATE 5 MG TABLET 10 MG PO (10:36)
[2020-12-10] MEDS: SERTRALINE HCL 50 MG TABLET 100 MG PO (10:36)
[2020-12-10] MEDS: allopurinoL 300 MG TABLET PO (10:36)
[2020-12-10 12:09] LABS: Glucose Point of Care 120 (65-105)
--- NOTE | 2020-12-10 14:21 | PC.NURSE ---
Patient transported to salvage laborer with salvage laborer staff for placement of pacemaker. Patient oriented x4, bp 148/87, p 80, r 24, ox 95% on roomair.
--- NOTE | 2020-12-10 14:46 | WPDMODSED ---
Moderate Sedation Note-Pt Data Patient Data Diagnosis: Acquired complete heart block with temporary pacemaker placed emergently yesterday syncopal episodes previous aortic valve replacement morbid obesity Present Complaint: this is a 65-year-old man who is morbidly obese had aortic valve replacement 5-6 years ago for treatment of severe aortic regurgitation following endocarditis. He now presents with syncope and has acquired complete heart block. A temporary transvenous pacemaker was placed urgently yesterday from the femoral vein. Procedure to be performed/Plan: Implantation of permanent pacemaker Allergies Allergy/AdvReac Type Severity Reaction Status Date / Time aspartame Allergy Severe Unknown Verified 12/04/20 10:58 cyclobenzaprine [Flexeril] Allergy Intermediate Unknown Verified 12/04/20 10:58 Penicillins Allergy Intermediate Unknown Verified 12/04/20 10:58 Home Medications Medication Instructions Recorded Confirmed Type lisinopril 40 mg tablet 40 mg PO DAILY #90 tablet 09/09/20 12/09/20 Rx metformin 1,000 mg tablet 1,000 mg PO BID #180 tablet 09/30/20 12/09/20 Rx sertraline 100 mg tablet 100 mg PO DAILY #90 tablet 09/30/20 12/09/20 Rx albuterol sulfate 2 puff INHALATION Q6H PRN #18 g 10/12/20 12/09/20 Rx bumetanide 1 mg tablet 1 mg PO DAILY #90 tablet 11/26/20 12/09/20 Rx allopurinol 300 mg tablet 300 mg PO DAILY #30 tablet 11/29/20 12/09/20 Rx aspirin [Adult Aspirin Regimen] 81 mg PO QPM 12/09/20 12/09/20 History atorvastatin 10 mg PO QPM 12/09/20 12/09/20 History carvedilol [Coreg] 6.25 mg PO BID 12/09/20 12/09/20 History Current Medications: Active Medications Acetaminophen (Acetaminophen 325 Mg Tablet) 650 mg PO Q6H PRN PRN Reason: Mild Pain (1-3) or Fever Last Admin: 12/10/20 10:35 Dose: 650 mg Documented by: Albuterol (Albuterol Sulfate (*Sp) Aerosol 1 Puff) 2 puff INHALATION Q6H PRN PRN Reason: shortness of breath or wheezing Allopurinol (Allopurinol 300 Mg Tablet) 300 mg PO DAILY@0800 [place] Last Admin: 12/10/20 10:36 Dose: 300 mg Documented by: Amlodipine Besylate (Amlodipine Besylate 5 Mg Tablet) 10 mg PO QAM [facility] Last Admin: 12/10/20 10:36 Dose: 10 mg Documented by: Atorvastatin Calcium (Atorvastatin 10 Mg Tablet) 10 mg PO QPM [facility] Bumetanide (Bumetanide 1 Mg Tablet) 1 mg PO DAILY [facility] Last Admin: 12/10/20 10:36 Dose: 1 mg Documented by: Dextrose (Dextrose 50% 25 Gm/50 Ml Syringe) 12.5 gm IV PUSH PRN PRN; Protocol PRN Reason: Hypoglycemia Glucagon (Glucagon For Inj 1 Mg Vial) 1 mg IM PRN PRN; Protocol PRN Reason: Hypoglycemia Glucose (Glucose Oral Gel 15 Gm Of Glucse In 37.5 Gm Tube) 15 gm PO PRN PRN; Protocol PRN Reason: Hypoglycemia Dextrose (Dextrose 5% 1,000 Ml) 1,000 mls @ 100 mls/hr IVPB PRN PRN; Protocol PRN Reason: Hypoglycemia Insulin Aspart (Insulin Aspart (*Bkc) 100 Units/Ml) 2 - 5 units SUB-Q TIDWM [facility]; Protocol Last Admin: 12/10/20 12:59 Dose: Not Given Documented by: Lisinopril (Lisinopril 20 Mg Tablet) 40 mg PO DAILY [facility] Last Admin: 12/10/20 10:36 Dose: 40 mg Documented by: Sertraline HCl (Sertraline Hcl 50 Mg Tablet) 100 mg PO DAILY [facility] Last Admin: 12/10/20 10:36 Dose: 100 mg Documented by: Sedation/Anesthesia: No previous sedation/anesthesia problems (including family history). [facility] Past Medical History Medical History (Updated 12/10/20 @ 09:06 by Domingo Boone MD) Dyslipidemia Essential hypertension Gout Major depression, recurrent Morbid obesity Obstructive sleep apnea treated with BiPAP Type 2 diabetes mellitus Surgical History Surgical History (Updated 12/09/20 @ 21:36 by Wendy Cooper PA-C) History of aortic valve replacement (~2014) Family History Family History Father Kidney disease Mother Diabetes mellitus Heart disease Social History Social History (Updated 12/09/20 @ 21:37 by Wendy Cooper PA-C) Social History:
--- NOTE | 2020-12-10 16:33 | ECG_ITS ---
Measurements Intervals [place] Rate: 66 P: 197 MI: 173 QRS: -79 QRSD: 209 T: 104 QT: 479 QTc: 505 Interpretive Statements ELECTRONIC ATRIAL PACEMAKER ELECTRONIC VENTRICULAR PACEMAKER NO FURTHER INTERPRETATION IS POSSIBLE ATYPICAL ECG Electronically Signed On 12-11-2020 6:46:45 WEB PRESS OPERATOR HELPER OFFSET by Romero Echavarria D.O.
--- NOTE | 2020-12-10 16:38 | WPDCARDPROC ---
Cardiac Cath Procedure Note Date of procedure:: 12/10/20 Performing physician:: Manuel Masterson MD Indication:: complete heart block Brief clinical history:: this is a 65-year-old man with a previous history of aortic valve replacement approximately 6 years ago. He after that was failed to follow-up for about 5 years. He presents now with syncope and acquired complete heart block. Last night a the urgent temporary transvenous wire was placed from the femoral vein. Procedure Procedure performed:: Implantation of permanent dual-chamber pacemaker Sedation/Medication given:: fentanyl 50 mg Versed 4 mg case start time 3:21 p.m. case end time 4:29 p.m. sedation provided by Jazmine Kuhn RN, trained observer Access site:: left subclavian vein Estimated blood loss:: 20-30 cc Procedure note:: patient was brought to the cardiac catheterization lab in the postabsorptive state the left anterior chest wall was prepped and draped in the usual fashion. IV access was not placed in the ICU in the upper extremities this was then established in the labeling machine operator as well. Following this I administered 1% lidocaine locally inferior to the clavicle. In the incision was then made about an inch below the clavicle from the midclavicular line to the deltopectoral groove. Using sharp and blunt dissection the subcutaneous tissue was down to the level of the prepectoral fascia. Electrocautery was used to provide cutaneous hemostasis. A blunt dissection was then used to create a pacemaker pocket inferior to the incision. This was then packed with a antibiotic soaked gauze. After this attention was turned to venous access. Several attempts were made unsuccessfully to establish venous access on 1 occasion arterial puncture was made. Following this I performed a venogram from the left upper extremity and after this the location of the vein was identified and punctured using the standard Cook needle. In from the single puncture site I then used [address] place the 2 leads mentioned below into the venous circulation and into the level of the right atrium. Attention was then turned to the ventricular lead. The stylet was withdrawn and 4 with a 3 cc syringe into a J-shaped which was used to negotiate the lead through the right ventricle out to the pulmonary artery position. A straight stylet was then placed into the lead was withdrawn and placed into the RV apex. The fixation screw was deployed and the stylet was then withdrawn. The lead was tested with very good pacing and sensing performance. A 10 volt stimulation showed no evidence of extracardiac stimulation. After this attention was turned to the atrial lead. The straight stylet was removed and a preformed J stylet was placed into the lead. When it was placed into the standard atrial appendage position this fixation screw was deployed upon withdrawal of the stylet the lead prolapse down into the ventricle. The screw was then withdrawn and the J stylet was then used to obtain a slightly more lateral position. The lead had better contact with the atrium in this position this fixation screw was deployed upon withdrawal of the stylet the lead was fixed into position. The testing showed good pacing and sensing performance in this position. The leads were both advanced to achieve good slack in this very large patient Who is morbidly obese. Following this the retained sponge was removed from the pocket and the suture sleeves were used to secure the leads to the base of the pocket using 2 0 silk ties. After this the pacemaker generator was connected to the leads and the entire assembly was placed into the newly created pocket. The pocket was then closed in layers using 3 0 Vicryl for inner were interrupted fashion for the subcutaneous tissue and then 4 0 Vicryl in a running subcuticular fashion for the skin. The wound was dressed with an Aquacel dressing. The patient was undraped to
--- NOTE | 2020-12-10 17:30 | PC.NURSE ---
Patient returned from Cardiac scientific laboratory supervisor at 1715 with scientific laboratory supervisor staff, post permanent pacemaker insertion. Patient oriented x4, vital signs: bp 148/74, r 21, pulse 67, oxygen 96% on roomair, temp 98.8. Aquacel dressing to left shoulder dry and intact, dressing to right temporary pacemaker site dry and intact, pedal pulses palpable, weak to bilateral feet. Patient denies chest pain, or shortness of breath. No complaints at this time.
[2020-12-10 17:35] LABS: Glucose Point of Care 126 (65-105)
[2020-12-10] MEDS: ATORVASTATIN 10 MG TABLET PO (18:27)
[2020-12-10] MEDS: SODIUM CHLORIDE 0.9% IV 1,000 ML 50 ML IV CONT (18:28)
[2020-12-10 19:30] LABS: Free T4 Free Thyroxine Reflex 1.08 ng/dL (0.78-2.19)
[2020-12-10] MEDS: METOPROLOL TARTRATE INJ 5 MG/5 ML VIAL IV PUSH (20:03)
[2020-12-10 20:20] LABS: Total Triiodothyronine (T3) 1.46 NG/ML (0.97-1.69)
[2020-12-10 21:05] LABS: Glucose Point of Care 163 (65-105)
[2020-12-10] MEDS: hydrALAZINE HCL 20 MG/ML VIAL 10 MG IV PUSH (22:07)
[2020-12-11] VITALS (10 sets, daily range): BP systolic 118–169; BP diastolic 70–93; PULSE 64–89; RESP 16–23; TEMP 36.9–37.2; O2SAT 94–97
[2020-12-11] MEDS: ACETAMINOPHEN 325 MG TABLET 650 MG PO ×2 (05:45→12:03)
[2020-12-11 06:44] LABS: Basophils Absolute Auto 0.1 K/mm3 (0.0-0.1); Basophils Percent Auto 0.5 % (0.2-1.2); Eosinophils Absolute Auto 0.2 K/mm3 (0-0.3); Eosinophils Percent Auto 2.1 % (0-4.4); Hematocrit 46.7 % (42.0-52.0); Hemoglobin 15.4 g/dL (14.0-18.0); Immature Granulocyte Absolute 0.04 K/mm3 (0.00-0.031); Immature Granulocyte Percent A 0.4 % (0-0.5); Lymphocytes Absolute Auto 2.26 K/mm3 (0.9-3.2); Lymphocytes Percent Auto 21.1 % (18.3-44.2); Mean Corpuscular Hemoglobin 32.4 pg (26-34); Mean Corpuscular Volume 98.1 fl (80-100); Mean Platelet Volume 11.8 fl (7.4-10.4); Monocytes Absolute Auto 0.9 K/mm3 (0.1-0.6); Monocytes Percent Auto 8.3 % (2.6-8.5); Neutrophils Absolute Auto 7.2 K/mm3 (1.3-6.7); Neutrophils Percent Auto 67.6 % (45.5-73.1); Platelet Count Result 214 k/mm3 (150-375); Red Blood Count 4.76 M/mm3 (4.6-6.20); Red Cell Distribution Width 13.2 % (11.5-14.5); White Blood Count 10.7 K/mm3 (4.5-10.0)
[2020-12-11 07:06] LABS: Alanine Aminotransferase 29 U/L (4-50); Albumin Level 4.1 g/dL (3.5-5.1); Alkaline Phosphatase 53 U/L (38-126); Anion Gap 6 mmol/L (8-16); Aspartate Amino Transferase 31 U/L (17-59); Bilirubin,Total 0.6 mg/dL (0.2-1.3); Blood Urea Nitrogen 14 mg/dL (9-20); Carbon Dioxide 29 mmol/L (22-30); Chloride 104 mmol/L (98-107); Estimated CRCL calculation 109 ml/min; Estimated Glomerular Filt Rate > 60; Glucose 126 mg/dL (75-110); Magnesium 1.6 mg/dL (1.6-2.3); Phosphorus 3.4 mg/dL (2.5-4.5); Potassium 3.8 mmol/L (3.4-5.0); Sodium 139 mmol/L (137-145)
--- NOTE | 2020-12-11 07:57 | PM.PNCARD ---
Progress Note: A&P Additional Plan 65-year-old man status post implantation of permanent dual-chamber pacemaker yesterday for treatment of acquired complete heart block. The patient's incision/dressing is clean and dry today and he appears to be quite stable. His bedrest will be completed this afternoon. Depending on his chest x-ray today and pacemaker check he can be discharged after his bedrest has been completed. The patient lives in the [facility] and wishes to follow-up with Dr. Echavarria after this. I will give him an appointment in our office next week for a wound check, dressing removal appointment. Manuel Masterson MD [facility] Subjective Date/time seen: 12/11/20 07:57 Interval history: Follow-up visit in this 65-year-old man with: Acquired complete heart block status post implantation of permanent dual-chamber pacemaker yesterday. The device appears to be functioning properly today post implant chest x-ray looks unremarkable. Patient feels better this morning offers no significant complaints. Patient had bioprosthetic aortic valve replacement about 6 years ago for treatment of aortic regurgitation. Principal comorbidity is morbid obesity. Exam Const: General: comfortable and no acute distress Other: Massively obese man appears to be comfortable in no distress this morning HENMT: Mouth: Yes moist mucous membranes Eyes: Sclera: sclerae normal Pupils: Equal, round and reactive pupils present Neck: Neck: supple Other: Inability to assess JVD because of body habitus Resp: Effort & Inspection: normal respiratory effort Auscultation: clear to auscultation bilaterally Other: Pacemaker dressing is clean and dry Cardio: Rate: regular rate Rhythm: regular rhythm Other: PMI not palpable, soft systolic ejection murmur is audible at the base GI: GI Palp: Yes Soft to palpation Auscultation: normal bowel sounds Urinary Catheter: Urinary Catheter: patent and draining Skin: General skin exam: normal color Neuro: Cognition (Neuro): normal cognition Extrem: General: normal to inspection Objective Data Vital Signs Vital Signs: Vital Signs - 24 hr 12/10/20 08:00 12/10/20 10:00 12/10/20 12:00 Temperature 36.7 C 37.1 C Pulse Rate 80 80 80 Pulse Rate [Right Pedal (Dorsalis Pedis) Palpation] 80 Respiratory Rate 20 18 24 H Blood Pressure 140/94 H 169/70 H 155/75 H Pulse Oximetry 98 96 100 12/10/20 14:00 12/10/20 17:18 12/10/20 17:30 Temperature 37.1 C 37.1 C Pulse Rate 80 74 67 Pulse Rate [Right Pedal (Dorsalis Pedis) Palpation] Respiratory Rate 95 H 17 22 H Blood Pressure 148/87 H 140/70 148/74 H Pulse Oximetry 95 98 96 12/10/20 17:37 12/10/20 18:00 12/10/20 18:18 Temperature Pulse Rate 66 73 64 Pulse Rate [Right Pedal (Dorsalis Pedis) Palpation] Respiratory Rate 18 Blood Pressure 169/94 H Pulse Oximetry 96 12/10/20 18:52 12/10/20 19:52 12/10/20 20:00 Temperature 36.7 C Pulse Rate 72 73 73 Pulse Rate [Right Pedal (Dorsalis Pedis) Palpation] Respiratory Rate 20 21 H 24 H Blood Pressure 174/85 H 166/79 H Pulse Oximetry 94 96 100 12/10/20 20:03 12/10/20 20:52 12/10/20 21:52 Temperature Pulse Rate 67 71 68 Pulse Rate [Right Pedal (Dorsalis Pedis) Palpation] Respiratory Rate 20 20 Blood Pressure 150/78 H 174/85 H Pulse Oximetry 96 95 12/10/20 22:00 12/10/20 22:30 12/11/20 00:00 Temperature Pulse Rate 68 75 Pulse Rate [Right Pedal (Dorsalis Pedis) Palpation] Respiratory Rate 21 H 18 Blood Pressure 171/87 H 165/76 H 160/86 H Pulse Oximetry 96 95 12/11/20 02:00 12/11/20 04:00 12/11/20 06:00 Temperature 36.9 C Pulse Rate 72 64 75 Pulse Rate [Right Pedal (Dorsalis Pedis) Palpation] Respiratory Rate 18 21 H 23 H Blood Pressure 155/86 H 169/80 H 155/74 H Pulse Oximetry 95 97 97 Intake/Output Intake/Output: Intake & Output 12/08/20 12/09/20 12/10/20 12/11/20 23:59 23:59 23:59 23:59 Intake Total 1020 1130 Output Total 2300
[2020-12-11] MEDS: lisinopriL 20 MG TABLET 40 MG PO (09:52)
[2020-12-11] MEDS: BUMETANIDE 1 MG TABLET PO (09:52)
[2020-12-11] MEDS: hydrALAZINE HCL 25 MG TABLET PO ×3 (09:52→17:49)
[2020-12-11] MEDS: amLODIPine BESYLATE 5 MG TABLET 10 MG PO (09:52)
[2020-12-11] MEDS: SERTRALINE HCL 50 MG TABLET 100 MG PO (09:53)
[2020-12-11] MEDS: allopurinoL 300 MG TABLET PO (09:53)
--- NOTE | 2020-12-11 09:58 | WPDINTPN ---
Progress Note: A&P Assessment and Plan (1) Complete heart block: Code(s): I44.2 - Atrioventricular block, complete Status: Acute Assessment and Plan: Patient said presented with near syncopal episodes, symptomatic bradycardia with hypotension -in the ER patient was found to be in high degree AV block/complete heart block -12/10/2020 status post placement of dual-chamber pacemaker is clean dry and intact. -12/10/2020 echocardiogram: Showed LV chamber moderately enlarged, EF 55-60%, grade 3 diastolic dysfunction -cardiology following the patient closely (2) Type 2 diabetes mellitus: Code(s): E11.9 - Type 2 diabetes mellitus without complications Status: Acute Assessment and Plan: Continue sliding scale insulin an Accu-Chek Hemoglobin A1c this admission is 6.0 on 12/10/2020 (3) Essential hypertension: Code(s): I10 - Essential (primary) hypertension Status: Acute Assessment and Plan: Blood pressures are stable, continue amlodipine, lisinopril, hydralazine and bumetanide -continue to monitor (4) ALEX (obstructive sleep apnea): Code(s): G47.33 - Obstructive sleep apnea (adult) (pediatric) Status: Acute Assessment and Plan: BiPAP at night and p.r.n. Additional Plan Discussed with patient and updated with his condition and plan of care. I answered all questions. Patient may go home later this afternoon. Code status: Full code Critical care time spent: 32 minutes Due to a high probability of clinically significant, life threatening deterioration, the patient required my highest level of preparedness to intervene emergently and I personally spent this critical care time directly and personally managing the patient. This critical care time included obtaining a history; examining the patient; pulse oximetry; ordering and review of studies; arranging urgent treatment with development of a management plan; evaluation of patient's response to treatment; frequent reassessment; and discussions with other providers. It was exclusive of separately billable procedures and treating other patients and teaching time. Please see Assessment and Plan section and the rest of the note for further information on patient assessment and treatment Subjective Date/time seen: 12/11/20 09:58 Interval history: Reason for consult: High-grade AV block, transvenous temporary pacemaker, syncopal episodes/symptomatic bradycardia 12/10/2020, status post placement of dual chamber pacemaker 12/11/2020: Patient seen examined this morning, awake, oriented x3 nonfocal, denies any chest pain, shortness of breath, abdominal pain, nausea vomiting. Is on room air with good O2 sats, urine output has been adequate, pressures have slightly elevated. Review of Systems Review of Systems: All systems reviewed & are unremarkable except as noted in HPI and below Exam Const: General: comfortable and no acute distress HENMT: Mouth: Yes moist mucous membranes Eyes: Sclera: sclerae normal Pupils: Equal, round and reactive pupils present Neck: Neck: supple Resp: Effort & Inspection: normal respiratory effort Auscultation: clear to auscultation bilaterally Cardio: Rate: regular rate Rhythm: regular rhythm Other: Paced rhythm GI: Inspection: non-distended GI Palp: Yes Soft to palpation and No Tenderness to palpation present (GI) Auscultation: normal bowel sounds Other: Morbid obesity : Other: Deferred Urinary Catheter: Urinary Catheter: urine clear Skin: General skin exam: normal color and no rashes or lesions noted Neuro: Cranial nerves: Yes Equal, round and reactive pupils present Other: Patient is awake, alert, oriented nonfocal Extrem: General: normal to inspection, edema and pedal edema Other: Temporary pacemaker in the right groin, evidence of ecchymosis or hematoma -trace edema Psych: Mental Status: mental status grossly normal Affect: normal affect Objective Data Vi
[2020-12-11 12:09] LABS: Glucose Point of Care 129 (65-105)
[2020-12-11 16:35] LABS: Glucose Point of Care 145 (65-105)
--- NOTE | 2020-12-11 17:43 | PM.DS ---
DS: Admitting Diagnosis Admitting Diagnosis Admitting Diagnosis: Chief Complaint: Symptomatic bradycardia with sinus pauses. DS: Discharge Diagnosis Discharge Diagnosis (1) Complete heart block: Code(s): I44.2 - Atrioventricular block, complete Status: Acute (2) Obstructive sleep apnea treated with BiPAP: Code(s): G47.33 - Obstructive sleep apnea (adult) (pediatric) Status: Inactive (3) Type 2 diabetes mellitus: Code(s): E11.9 - Type 2 diabetes mellitus without complications Status: Acute (4) Essential hypertension: Code(s): I10 - Essential (primary) hypertension Status: Inactive (5) Dyslipidemia: Code(s): E78.5 - Hyperlipidemia, unspecified Status: Inactive DS: Summary Hospital Course Reason for hospitalization: Chief Complaint: Symptomatic bradycardia with sinus pauses. Narrative: This is a 65-year-old male with morbid obesity, obstructive sleep apnea, hypertension, hyperlipidemia, and type 2 diabetes mellitus who was being transported to [facility] as a direct admission to the intensive care unit when he went into complete heart block with hypotension and was diverted to the emergency department. The patient had a bioprosthetic tissue aortic valve replacement in 2014 at [facility] for significant aortic stenosis and at that time the plan was to insert pacer wires that he would most likely need at some point in time however that was not able to be done as the procedure was complicated by infection. The patient has known to some degree that he has sick sinus syndrome however when he began having syncopal episodes in June 2020, he did not seek treatment. Recently he has been having several episodes of lightheadedness a day with frequent near syncopal episodes. Luckily his primary care provider refused to refill his prescription medications without an office visit and at that time he mentioned these frequent episodes. A 48 hour event monitor was ordered which showed multiple sinus pauses up to 2.9 seconds. In any regard, he was having increasing near syncopal episodes today and presented to the emergency department in [place]. He was found to have a high degree AV block and transfer to [place] was initiated. Dr. Echavarria (cardiology) was consulted and he indicated to the nursing cargo supervisor that he would see the patient in consultation. I was then asked to admit the patient to the hospitalist service but was reluctant to do so without the moisture meter operator speaking with the ED physician as I felt that an lead janitor needed to be involved in the transfer process should his condition deteriorate. I voiced concerns to the house coordinator who spoke with the moisture meter operator,and he felt comfortable taking the patient in transfer without any other recommendations or consulting Interventional Cardiology. Dr. Boone agreed to accept the patient to the ICU, and I requested that Dr. Gloria sned the patient via ACLS ambulance with pacer pads in place and atropine at bedside. En route to the hospital, the patient became profoundly bradycardic in the 20s with near loss of consciousness and hypotension, and he was diverted to the [place] emergency department. Transcutaneous pacing was not capturing reliably and he is now status post temporary transvenous pacemaker per Dr. Masterson. At the time my evaluation the patient complains of discomfort from the transcutaneous pacing but he has no other specific complaints. He is not lightheaded at this time and denies vertigo, chest pain, palpitations, shortness of breath, nausea, vomiting, and sweats. Hospital Course: patient with complete heart block was seen by moisture meter operator and had dual-chamber pacemaker, patient had cardiac ECHO has moderately enlarged LV chamber with EF of 55-60%, and grade 3 diastolic dysfunction. patient is clinically stable has completed his rest, will discharge the patient. Status at Discharge Functional
--- NOTE | 2020-12-11 18:52 | PCDIET ---
Patient discharged to home.Patient left floor with hospital staff, oriented x4, sling to left arm in place, no complaints of chest paint/shortness of breath. Discharge instructions reviewed with patient/spouse, and understanding acknowledged.
--- NOTE | 2020-12-11 20:24 | PM.PNCARD ---
Progress Note: A&P Assessment and Plan (1) Syncope: Code(s): R55 - Syncope and collapse Status: Deleted Assessment and Plan: Due to conduction abnormalities/complete heart block. (2) Hyperlipidemia associated with type 2 diabetes mellitus: Code(s): E11.69 - Type 2 diabetes mellitus with other specified complication; E78.5 - Hyperlipidemia, unspecified Status: Acute Assessment and Plan: On statin. (3) Hypertension associated with diabetes: Code(s): E11.59 - Type 2 diabetes mellitus with other circulatory complications; I10 - Essential (primary) hypertension Status: Acute Assessment and Plan: High off Coreg. On Amlodipine 10 mg daily. Start Hydralazine 25 mg PO TID. (4) Obesity, morbid, BMI 50 or higher: Code(s): E66.01 - Morbid (severe) obesity due to excess calories Status: Acute (5) ALEX (obstructive sleep apnea): Code(s): G47.33 - Obstructive sleep apnea (adult) (pediatric) Status: Acute (6) Complete heart block: Code(s): I44.2 - Atrioventricular block, complete Status: Acute Assessment and Plan: Dr. Masterson placed temporary pacemaker on 12/09/20. Biotronic permanant pacemaker placed by Dr. Masterson on 12/10/20. Stopped Coreg. May d/c home if OK by Dr. Masterson and hospitalist. F/U with Dr. Masterson in 1 week for wound check. F/U with me in 3 weeks at [facility]. (7) History of aortic valve replacement with bioprosthetic valve: Code(s): Z95.3 - Presence of xenogenic heart valve Status: Acute Assessment and Plan: Stable. Subjective Date/time seen: 12/11/20 20:24 Late entry as patient was seen at 07:45. Denies chest pain or sob or dizziness. Exam Const: General: cooperative, healthy appearing and comfortable Nutritional Appearance: obese Resp: Auscultation: clear to auscultation bilaterally, no crackles, no rales, no rhonchi and no wheezes Cardio: Jugular venous distension: no JVD Rate: regular rate Rhythm: regular rhythm Heart sounds: no murmurs Peripheral pulses: dorsalis pedis present GI: GI Palp: No abdominal tenderness and Yes Soft to palpation Neuro: General: oriented to person, oriented to place and oriented to time Extrem: Right lower extremity: no edema Left lower extremity: no edema Objective Data Vital Signs Vital Signs: Vital Signs - 24 hr 12/10/20 20:52 12/10/20 21:52 12/10/20 22:00 Temperature Pulse Rate 71 68 68 Respiratory Rate 20 20 21 H Blood Pressure 150/78 H 174/85 H 171/87 H Pulse Oximetry 96 95 96 12/10/20 22:30 12/11/20 00:00 12/11/20 02:00 Temperature Pulse Rate 75 72 Respiratory Rate 18 18 Blood Pressure 165/76 H 160/86 H 155/86 H Pulse Oximetry 95 95 12/11/20 04:00 12/11/20 06:00 12/11/20 08:00 Temperature 98.4 F 98.7 F Pulse Rate 64 75 70 Respiratory Rate 21 H 23 H 20 Blood Pressure 169/80 H 155/74 H 168/74 H Pulse Oximetry 97 97 96 12/11/20 09:20 12/11/20 10:00 12/11/20 12:00 Temperature 98.8 F Pulse Rate 81 72 Respiratory Rate 20 21 H Blood Pressure 118/70 160/93 H Pulse Oximetry 96 94 94 12/11/20 14:00 12/11/20 16:00 Temperature 99.0 F Pulse Rate 78 81 Respiratory Rate 20 23 H Blood Pressure 152/77 H 154/77 H Pulse Oximetry 94 95 Intake/Output Intake/Output: Intake & Output 12/08/20 12/09/20 12/10/20 12/11/20 23:59 23:59 23:59 23:59 Intake Total 1020 1610 Output Total 2300 3050 Balance -1280 -1440 Meds/Results Medications: Active Medications Generic Name Dose Route Start Last Admin Trade Name Freq PRN Reason Stop Dose Admin Acetaminophen 650 mg 12/09/20 22:31 12/11/20 12:03 Acetaminophen 325 Mg Tablet PO 650 mg Q6H PRN Administration Mild Pain (1-3) or Fever Albuterol 2 puff 12/10/20 01:35 Albuterol Sulfate (*Sp) Aerosol 1 Puff INHALATION Q6H PRN shortness of breath or wheezing Allopurinol 300 mg 12/10/20 08:00 12/11/20 09
== END 2020-12-11 18:05 | disposition home or self-care (01) | DRG 243 ==
LOC: ANHED 17:31 → ANHCATHLAB 17:44 → ANHICU 19:23
PROVIDERS: Internal Medicine; Internal Medicine Cardiovascular Disease; Physician Assistant; Specialist; Admitting Provider Internal Medicine; Emergency Provider General Practice; PCP Nurse Practitioner Family; Visit Provider Family Medicine
PROC: 02HK3JZ Insertion of Pacemaker Lead into Right Ventricle, Percutaneous Approach (ICD-10-PCS; CPT 33210; principal; 2020-12-09 17:40)
PROC: 0JH606Z Insertion of Pacemaker, Dual Chamber into Chest Subcutaneous Tissue and Fascia, Open Approach (ICD-10-PCS; CPT 33208; principal; 2020-12-10 14:00)
DX: I44.2 Atrioventricular block, complete (principal); Z68.43 Body mass index [BMI] 50.0-59.9, adult; R55 Syncope and collapse; E11.69 Type 2 diabetes mellitus with other specified complication; E78.5 Hyperlipidemia, unspecified; E11.59 Type 2 diabetes mellitus with other circulatory complications; I10 Essential (primary) hypertension; E66.01 Morbid (severe) obesity due to excess calories; G47.33 Obstructive sleep apnea (adult) (pediatric); F32.9 Major depressive disorder, single episode, unspecified; M10.9 Gout, unspecified; Z95.2 Presence of prosthetic heart valve; Z87.891 Personal history of nicotine dependence
CPT/HCPCS: 33208; 33210; 36415; 71045; 71046; 80053; 82948; 83036; 83735; 84100; 84439; 84443; 84480; 85025; 85027; 85610; 85730; 93005; 99285; A9270; C1779; C1785; C1894; C8929; J0360; J1644; J2250; J3010; J3370; J7030; J7040; L1830; Q9957

== ENCOUNTER 2021-07-01 14:35 | Outpatient (NON) | payer OTHER, MEDICARE, SELFPAY | END 2021-07-01 14:36 | disposition home or self-care (01) | PROVIDERS: Visit Provider Nurse Practitioner Family | DX: R10.9 Unspecified abdominal pain (principal) | CPT/HCPCS: 87086 ==

== ENCOUNTER 2021-07-03 11:09 | Outpatient (CLI) | payer OTHER, MEDICARE, SELFPAY ==
--- NOTE | ~2021-07-03 | XR_ITS ---
XR chest 2V 07/03/2021 11:44 Indication: Shortness of breath and weakness Procedure: PA and lateral views of the chest Comparison: Comparison to multiple prior studies sequentially, with oldest reviewed study dated 09/18. Findings: Status post median sternotomy for CABG. Cardiomegaly with interstitial edema. Small right p leural effusion. No pneumothorax. No acute osseous abnormality. Pacemaker leads are stable. Impression: 1: Cardiomegaly with interstitial edema. 2: Small right pleural effusion. Reviewed, dictated and finalized at location A. Impression: 1: Cardiomegaly with interstitial edema. 2: Small right pleural effusion.
[2021-07-03 11:23] LABS: Basophils Absolute Auto 0.06 K/mm3 (0.00-0.10); Basophils Percent Auto 0.5 % (0.0-1.0); Eosinophils Absolute Auto 0.07 K/mm3 (0.02-0.50); Eosinophils Percent Auto 0.6 % (1.0-6.0); Hematocrit 43.7 % (37.0-46.0); Hemoglobin 14.3 g/dL (12.4-15.3); Immature Granulocyte Absolute 0.04 K/mm3 (0.00-0.00); Immature Granulocyte Percent A 0.3 % (0.0-0.0); Lymphocytes Absolute Auto 1.66 K/mm3 (1.10-4.50); Lymphocytes Percent Auto 14.1 % (18.0-42.0); Mean Corpuscular HGB Conc 32.7 g/dL (32.0-36.0); Mean Corpuscular Hemoglobin 31.3 pg (27.0-31.0); Mean Corpuscular Volume 95.6 fL (78.0-102.0); Mean Platelet Volume 11.6 fl (8.7-11.0); Monocytes Percent Auto 5.9 % (2.0-11.0); Neutrophils Absolute Auto 9.3 K/mm3 (1.7-7.2); Neutrophils Percent Auto 78.6 % (50.0-70.0); Platelet Count Result 227 K/mm3 (150-420); Red Blood Count 4.57 M/mm3 (4.70-6.10); Red Cell Distribution Width 13.9 % (11.6-14.4); White Blood Count 11.8 K/mm3 (4.8-10.8)
--- NOTE | 2021-07-03 11:26 | ECHO_ITS ---
Patient Info Name: Primitivo Allred Age: 65 years : 1955 Gender: Male Ht: 69 in Wt: 345 lbs BSA: 2.85 m2 HR: 102 bpm BP: 134 / 66 mmHg Technical Quality: Poor Exam Date: 07/03/2021 1:13 PM Exam Location: [facility] Patient Status: Outpatient Admit Date: 07/03/2021 Staff Ordering Physician: Dea Coe NP Shift Supervisor Melting: Maldonado Koch RDCS, RT Attending Provider: Dea Coe NP Referring Physician: Saravanan STOVER; Exam Type: CA echo doppler color flow Study Info Indications R06.02 - Shortness of breath Complete two-dimensional, color flow and Doppler transthoracic echocardiogram is performed. Summary 1. Complete two-dimensional, color flow and Doppler transthoracic echocardiogram is performed. 2. Technically suboptimal study due to poor sonographic images. Patient refused definity contrast. 3. Left ventricular systolic function appears to be severely reduced, estimated at 30-35%. 4. Left ventricular chamber dimension is not well visualized. 5. The left ventricular diastolic function is abnormal. 6. E/e' 20 is elevated. 7. Right ventricular systolic function is reduced based on abnormal TAPSE 1.5 cm.. 8. Left atrial chamber dimension is mildly enlarged. 9. There is mild to moderate aortic valve stenosis based on a peak velocity of 209 cm/s, mean gradient of 6 mmHg, and aortic valve area of 1.4 cm2. 10. There is mild to moderate mitral valve regurgitation. 11. There is mild to moderate tricuspid valve regurgitation. 12. Moderate pulmonary hypertension, estimated pulmonary arterial systolic pressure is 51 mmHg. 13. Dilated inferior vena cava with >50% collapse upon inspiration consistent with elevated right atrial pressure, 10 mmHg. Left Ventricle Technically suboptimal study due to poor sonographic images. Patient refused definity contrast. E/e' 20 is elevated. Left ventricular systolic function appears to be severely reduced, estimated at 30-35%. Left ventricular chamber dimension is not well visualized. The left ventricular diastolic function is abnormal. Right Ventricle Right ventricular systolic function is reduced based on abnormal TAPSE 1.5 cm.. Right ventricular chamber dimension is not well visualized. Left Atria Left atrial chamber dimension is mildly enlarged. Right Atria Right atrial chamber dimension is not well visualized. Aortic Valve The aortic valve is not well visualized. Cannot determine number of aortic valve leaflets. There is mild to moderate aortic valve stenosis based on a peak velocity of 209 cm/s, mean gradient of 6 mmHg, and aortic valve area of 1.4 cm2. There is no aortic valve regurgitation. Pulmonic Valve The pulmonic valve is not well visualized. Mitral Valve There is no mitral valve stenosis. There is mild to moderate mitral valve regurgitation. Tricuspid Valve There is mild to moderate tricuspid valve regurgitation. Moderate pulmonary hypertension, estimated pulmonary arterial systolic pressure is 51 mmHg. Pericardium/Pleural There is no pericardial effusion. Inferior Vena Cava Dilated inferior vena cava with >50% collapse upon inspiration consistent with elevated right atrial pressure, 10 mmHg. Aorta The aortic root size at the sinus of Valsalva is not well visualized. Left Ventricular Outflow Tract Name Value Normal
[2021-07-03 11:45] LABS: Hemoglobin A1C 6.6 % (<5.7)
[2021-07-03 11:52] LABS: SARS-CoV-2 Ag Negative (Negative)
[2021-07-03 12:48] LABS: Alanine Aminotransferase 29 U/L (16-63); Albumin Level 4.1 g/dL (3.4-5.0); Alkaline Phosphatase 64 U/L (46-116); Anion Gap 12 mmol/L (8-16); Aspartate Amino Transferase 21 U/L (15-37); Bilirubin,Total 1.1 mg/dL (0.00-1.00); Blood Urea Nitrogen 23 mg/dL (7-18); Calcium 9.5 mg/dL (8.5-10.1); Carbon Dioxide 29 mmol/L (21-32); Chloride 101 mmol/L (98-108); Cholesterol 112 mg/dL (0-200); Estimated Glomerular Filt Rate 50; Glucose 117 mg/dL (70-99); HDL Direct 52 mg/dL (40-60); LDL Cholesterol Calculated 41 mg/dL (<130); Magnesium 1.5 mg/dL (1.8-2.4); Osmolality Calculated 298 mOsm/kg (285-295); Potassium 4.3 mmol/L (3.5-5.1); Sodium 142 mmol/L (136-145); Total Protein 7.6 g/dL (6.4-8.2); Triglycerides 93 mg/dL (0-150)
--- NOTE | 2021-07-04 12:18 | WPDPFTINT ---
PFT Procedure Performed PFT Procedure Performed Spirometry with Pre/Post Bronchodilator Plethysmography (Lung Vol) Flow Vol Loop PFT Interpretation DOS: 07/03/2021 REQUESTING: Sourav Coe NP REASON FOR TESTING: Shortness of breath PULMONARY FUNCTION TESTS Results are reliable and reproducible. The patietn was not able to perform the diffusion maneuver. Spirometry: FEV1 is 41% predicted, 1.30 liters. FCV is 41%, 1.66 liters. The FEV1/FVC is 99%, normal. There is no change after bronchodilator administration. Lung volumes: Total lung capacity is 75%, decreased, consistent with mild restriction. Residual volume is 129%, increased consistent with air trapping. RV/ TLC is 65%, severe air trapping. Normal airway resistance, 98 mcH2O/L/sec. Diffusion: DLCO was not measured due to patient being unable to perform maneuver with paroxysmal coughing. Flow volume loop: Restrictive pattern. IMPRESSION: Mild restriction based on decreased total lung capacity 75% predicted, severe air trapping which may represent an obstructive process. Restriction can mask obstruction. BMI is elevated at 51.6 and may be the cause for restriction. The patient was not able to perform the perfusion maneuver. Lack of response to bronchodilator should not preclude use if clinically indicated. Magaly Tello MD
[2021-07-07 00:22] LABS: Vitamin D 25 Hydroxy 92 ng/mL (30-100)
== END 2021-07-03 11:10 | disposition home or self-care (01) ==
LOC: CHSIMG 11:12
PROVIDERS: PCP Nurse Practitioner Family; Visit Provider Nurse Practitioner Family
DX: R06.02 Shortness of breath (principal); E11.69 Type 2 diabetes mellitus with other specified complication; E78.5 Hyperlipidemia, unspecified; Z79.899 Other long term (current) drug therapy; Z20.822 Contact with and (suspected) exposure to COVID-19
CPT/HCPCS: 36415; 71046; 80053; 80061; 82306; 83036; 83735; 85025; 87426; 93306; 94060; 94726; 94729; C9803

== ENCOUNTER 2021-07-15 12:27 | Emergency (ER) | payer OTHER, MEDICARE, SELFPAY ==
--- NOTE | ~2021-07-15 | XR_ITS ---
EXAMINATION: XR chest 2V EXAM DATE: 07/15/2021 13:45 INDICATION: Dyspnea, cough, shortness of breath. Symptoms one month. TECHNIQUE: Frontal and lateral projections of the chest obtained and reviewed. Comparison is made to prior examination from 06/30/2021. FINDINGS: Sternotomy wires are present without findings to suggest sternal dehiscence. There is a du al lead pacemaker/AICD seen with leads projecting over the expected locations of the right atrial katerine endage and right ventricle. There is cardiomegaly and pulmonary vascular congestion. There is indisti nct reticulation with a bibasal predominance which may indicate pulmonary edema. Small right pleural effusion. Pneumonia not excludable. No pneumothorax. IMPRESSION: 1. Findings consistent with CHF exacerbation unchanged. 2. Small right pleural effusion. 3. Pneumonia not excludable. Reviewed, dictated and finalized at location A.
[2021-07-15 12:32] VITALS: BP 140/93; PULSE 80; RESP 16; TEMP 36.6; O2SAT 97
[2021-07-15 12:38] VITALS: PULSE 77
--- NOTE | 2021-07-15 12:46 | ED.SOB ---
HPI - SOB/Dyspnea General Chief Complaint: Shortness of Breath/Dyspnea Stated Complaint: swollen feet/SOB Time Seen by Provider: 07/15/21 12:30 Source: patient and RN notes reviewed Mode of arrival: ambulatory Limitations: no limitations History of Present Illness MD elicited complaint: shortness of breath Pertinent past history: congestive heart failure Onset (ago): week(s) (3) Context: other ( Recent change and diuretic medicine) Timing: constant and progressively worsening Severity: moderate Exacerbating factors: lying flat and exertion Relieving factors: nothing Known history of: congestive heart failure Associated symptoms: denies other symptoms Treatment prior to arrival: none Related Data Home oxygen amount: none Allergies Allergy/AdvReac Type Severity Reaction Status Date / Time aspartame Allergy Severe Unknown Verified 07/04/21 10:17 cyclobenzaprine [Flexeril] Allergy Intermediate Unknown Verified 07/04/21 10:17 Penicillins Allergy Intermediate Unknown Verified 07/04/21 10:17 Review of Systems Review of Systems: All systems reviewed & are unremarkable except as noted in HPI and below Constitutional: Constitutional: Denies chills and Denies fever(s) Cardiovascular: Cardiovascular: Denies chest pain, Denies rapid heart rate and Denies slow heart rate Respiratory: Respiratory: Reports cough ( with frothy clear sputum) Gastrointestinal: Gastrointestinal: Denies diarrhea, Denies nausea and Denies vomiting PMFSH Past Medical History Medical History Dyslipidemia Essential hypertension Gout Grade III diastolic dysfunction Major depression, recurrent Morbid obesity Obstructive sleep apnea treated with BiPAP Pacemaker Type 2 diabetes mellitus Surgical History Surgical History History of aortic valve replacement (~2014) S/P placement of cardiac pacemaker left side Family History Family History Father Kidney disease Mother Diabetes mellitus Heart disease Social History Social History Social History: Surrogate decision maker: Louisa Allred, . Code status: Full code. Smoking packs per day: 2 Smoking cigarettes per day: 40.0 Years smoked: 30 Smoking pack-years: 60.00 Smoking status: Former smoker Tobacco type: cigarettes Smoking end date: 10/18/06 Alcohol intake: former Substance use: never Substance use type: does not use Additional living arrangements comments: The patient lives in [place] with his .. Additional occupation/education comments: Retired. Gender identity (if verbalized by the patient): Male Spiritual care concerns: No Exam Const: General: healthy appearing and no acute distress Nutritional Appearance: well nourished and obese morbidly obese Orientation/consciousness: patient oriented x3 HENMT: Head: normal to inspection Ears: external ears normal Face and sinus: normal facial exam Mouth: Yes moist mucous membranes Eyes: Conjunctivae: conjunctivae normal Pupils: Equal, round and reactive pupils present EOM: EOMs intact bilaterally Neck: Neck: normal visual inspection Chest: Chest palpation & inspection: normal inspection of the chest Resp: Effort & Inspection: normal respiratory effort Auscultation: no rales, no rhonchi, no wheezes and diminished lung sounds diffuse Cardio: Rate: regular rate Rhythm: regular rhythm GI: GI Palp: Yes Soft to palpation, No Tenderness to palpation present (GI) and No Guarding due to palpation present (GI) Auscultation: normal bowel sounds Back/Spine/Pelvis: Cervical Spine: cervical ROM normal Thoracic/Lumbar Spine: thoraco-lumbar ROM normal Skin: General skin exam: normal color Rashes: no rashes Neuro: General: patient oriented x3, moves all extremities, no
[2021-07-15 13:23] LABS: Basophils Absolute Auto 0.01 K/mm3 (0.00-0.10); Basophils Percent Auto 0.2 % (0.0-1.0); Eosinophils Absolute Auto 0.01 K/mm3 (0.02-0.50); Eosinophils Percent Auto 0.2 % (1.0-6.0); Hematocrit 41.8 % (37.0-46.0); Hemoglobin 13.7 g/dL (12.4-15.3); Immature Granulocyte Absolute 0.02 K/mm3 (0.00-0.00); Immature Granulocyte Percent A 0.4 % (0.0-0.0); Lymphocytes Percent Auto 21.4 % (18.0-42.0); Mean Corpuscular HGB Conc 32.8 g/dL (32.0-36.0); Mean Corpuscular Hemoglobin 30.7 pg (27.0-31.0); Mean Corpuscular Volume 93.7 fL (78.0-102.0); Mean Platelet Volume 12.1 fl (8.7-11.0); Monocytes Absolute Auto 0.45 K/mm3 (0.10-0.90); Monocytes Percent Auto 8.8 % (2.0-11.0); Neutrophils Absolute Auto 3.6 K/mm3 (1.7-7.2); Platelet Count Result 135 K/mm3 (150-420); Red Blood Count 4.46 M/mm3 (4.70-6.10); Red Cell Distribution Width 13.6 % (11.6-14.4); White Blood Count 5.1 K/mm3 (4.8-10.8)
[2021-07-15] MEDS: BUMETANIDE INJ 1 MG/4 ML VIAL 2 MG IV PUSH (13:30)
[2021-07-15 13:46] LABS: Alanine Aminotransferase 34 U/L (16-63); Albumin Level 3.3 g/dL (3.4-5.0); Alkaline Phosphatase 56 U/L (46-116); Anion Gap 9 mmol/L (8-16); Aspartate Amino Transferase 34 U/L (15-37); Bilirubin,Total 0.7 mg/dL (0.00-1.00); Blood Urea Nitrogen 29 mg/dL (7-18); Calcium 8.4 mg/dL (8.5-10.1); Carbon Dioxide 30 mmol/L (21-32); Chloride 100 mmol/L (98-108); Estimated CRCL calculation 62 ml/min; Estimated Glomerular Filt Rate 52; Glucose 121 mg/dL (70-99); Magnesium 1.7 mg/dL (1.8-2.4); NT Pro B Type Natriuretic Pept 6949 pg/mL (0-125); Osmolality Calculated 294 mOsm/kg (285-295); Potassium 3.6 mmol/L (3.5-5.1); Sodium 139 mmol/L (136-145); Total Protein 6.9 g/dL (6.4-8.2)
[2021-07-15 13:48] LABS: Troponin I 1643.5 ng/L (0.00-60.4)
--- NOTE | 2021-07-15 13:58 | ECG_ITS ---
Measurements Intervals [place] Rate: 74 P: AL: 0 QRS: -46 QRSD: 169 T: 217 QT: 443 QTc: 494 Interpretive Statements ATRIAL FIBRILLATION LEFT AXIS DEVIATION LEFT BUNDLE BRANCH BLOCK BASELINE ARTIFACT- I, II, III, AVR, AVL, AVF ABNORMAL ECG Electronically Signed On 07-15-2021 14:56:05 CDT by Romero Echavarria D.O.
[2021-07-15 14:45] VITALS: BP 163/106; PULSE 86; RESP 20; O2SAT 98
== END 2021-07-15 14:58 | disposition home or self-care (01) ==
PROVIDERS: Emergency Provider Emergency Medicine; PCP Nurse Practitioner Family
DX: I50.9 Heart failure, unspecified (principal); I48.91 Unspecified atrial fibrillation
CPT/HCPCS: 36415; 71046; 80053; 83735; 83880; 84484; 85025; 93005; 96374; 99283; 99284

== ENCOUNTER 2021-07-16 06:53 | Emergency (ER) | payer OTHER, MEDICARE, SELFPAY ==
[2021-07-16 07:11] VITALS: BP 101/75; PULSE 72; RESP 18; TEMP 37.6; O2SAT 92
--- NOTE | 2021-07-16 07:11 | ECG_ITS ---
Measurements Intervals [place] Rate: 73 P: PA: 0 QRS: 156 QRSD: 157 T: -57 QT: 466 QTc: 517 Interpretive Statements ELECTRONIC VENTRICULAR PACEMAKER WITH INHIBITION UNDERLYING PROBABLY ATRIAL FIBRILLATION INTRAVENTRICULAR CONDUCTION DELAY ANTEROSEPTAL INFARCT, AGE INDETERMINATE BASELINE ARTIFACT- I, II NO FURTHER INTERPRETATION IS POSSIBLE ABNORMAL ECG Electronically Signed On 07-16-2021 7:48:02 CDT by Romero Echavarria D.O.
--- NOTE | 2021-07-16 07:11 | ED.SOB ---
HPI - SOB/Dyspnea General Chief Complaint: Shortness of Breath/Dyspnea Stated Complaint: SOB Time Seen by Provider: 07/16/21 07:11 Source: patient and family Mode of arrival: ambulatory Limitations: no limitations History of Present Illness HPI Narrative: 66-year-old man with a history of patient placement for bradycardia, aortic valve replacement, a grade 3 diastolic dysfunction and ALEX comes in today complaining of increasing shortness of breath over last 3 weeks. Patient states that it started after he went off his Bumex and on Lasix. He has had ankle swelling. He states he has also had cough, nausea, vomiting, ankle swelling, but no chest pain, syncope, or palpitations. Shortness of breath is worse with exertion. He was seen yesterday and had an elevated troponin and an elevated BNP. MD elicited complaint: shortness of breath and cough Pertinent past history: congestive heart failure and diabetes Onset (ago): week(s) (3) Timing: constant and progressively worsening Severity: moderate Exacerbating factors: lying flat and exertion Relieving factors: nothing Known history of: congestive heart failure Associated symptoms: cough, sputum production (White) and nausea/vomiting Treatment prior to arrival: none and other (Took Bumex yesterday and today (2 mg).) Related Data Home oxygen amount: none Home Medications Medication Instructions Recorded Confirmed bumetanide 1 mg PO DAILY 07/16/21 07/16/21 sertraline 100 mg PO DAILY 07/16/21 07/16/21 Allergies Allergy/AdvReac Type Severity Reaction Status Date / Time aspartame Allergy Severe Unknown Verified 07/04/21 10:17 cyclobenzaprine [Flexeril] Allergy Intermediate Unknown Verified 07/04/21 10:17 Penicillins Allergy Intermediate Unknown Verified 07/04/21 10:17 Review of Systems Review of Systems: All systems reviewed & are unremarkable except as noted in HPI and below Constitutional: Constitutional: Denies chills and Denies fever(s) ENT: Denies nasal congestion and Denies sore throat Cardiovascular: Cardiovascular: Denies chest pain, Denies rapid heart rate, Denies radiating jaw, neck or arm pain and Denies slow heart rate Respiratory: Respiratory: Reports as per HPI, Reports cough, Reports dyspnea and Reports wheezing Gastrointestinal: Gastrointestinal: Denies abdominal pain, Denies diarrhea, Reports nausea and Reports vomiting Genitourinary: Genitourinary: Denies dysuria and Reports urinary frequency (After taking Bumex) Musculoskeletal: Musculoskeletal: Denies back pain, Denies arthralgias and Denies joint swelling Integumentary/Breasts: Skin/Breast: Denies pruritus, Denies erythema and Denies rash Neurologic: Denies vertigo, Denies dizziness and Denies syncope Allergic/Immunologic: Allergic/Immunologic: Denies lip swelling and Denies tongue swelling PMFSH Past Medical History Medical History Dyslipidemia Essential hypertension Gout Grade III diastolic dysfunction Major depression, recurrent Morbid obesity Obstructive sleep apnea treated with BiPAP Pacemaker Type 2 diabetes mellitus Surgical History Surgical History History of aortic valve replacement (~2014) S/P placement of cardiac pacemaker left side Family History Family History Father Kidney disease Mother Diabetes mellitus Heart disease Social History Social History Social History: Surrogate decision maker: Louisa Allred, . Code status: Full code. Smoking packs per day: 2 Smoking cigarettes per day: 40.0 Years smoked: 30 Smoking pack-years: 60.00 Smoking status: Former smoker Tobacco type: cigarettes Smoking end date: 10/18/06 Alcohol intake: former Substance use: never Substance use type: does not use Additional michelle
[2021-07-16 07:34] LABS: Basophils Absolute Auto 0.03 K/mm3 (0.00-0.10); Basophils Percent Auto 0.4 % (0.0-1.0); Hematocrit 42.4 % (37.0-46.0); Immature Granulocyte Absolute 0.02 K/mm3 (0.00-0.00); Immature Granulocyte Percent A 0.3 % (0.0-0.0); Lymphocytes Absolute Auto 0.91 K/mm3 (1.10-4.50); Lymphocytes Percent Auto 12.3 % (18.0-42.0); Mean Corpuscular Hemoglobin 31.2 pg (27.0-31.0); Mean Corpuscular Volume 94.4 fL (78.0-102.0); Mean Platelet Volume 12.6 fl (8.7-11.0); Monocytes Absolute Auto 0.58 K/mm3 (0.10-0.90); Monocytes Percent Auto 7.8 % (2.0-11.0); Neutrophils Absolute Auto 5.9 K/mm3 (1.7-7.2); Neutrophils Percent Auto 79.2 % (50.0-70.0); Platelet Count Result 158 K/mm3 (150-420); Red Blood Count 4.49 M/mm3 (4.70-6.10); Red Cell Distribution Width 13.5 % (11.6-14.4); White Blood Count 7.4 K/mm3 (4.8-10.8)
--- NOTE | 2021-07-16 07:51 | PC.NURSE ---
Urine obtained and walked to lab.
[2021-07-16 07:52] LABS: SARS-CoV-2 Ag Positive (Negative)
[2021-07-16 07:53] LABS: Influenza Control Valid (Valid)
[2021-07-16 07:55] LABS: Add Urine Microscopic? YES; Appearance Urine Clear (Clear); Bilirubin Urine Negative (Negative); Blood Urine 2+ (Negative); Color Urine Yellow (Yellow); Glucose Urine UA Negative (Negative); Ketones Urine Negative (Negative); Leukocyte Esterase Ur Negative LEU/UL (Negative); Nitrate Urine Negative (Negative); Protein Urine 3+ (Negative); Specific Grav Ur 1.025 (1.010-1.020); Urobilinogen Urine 0.2 mg/dL (0.2-1.0)
[2021-07-16 07:55] LABS: Alanine Aminotransferase 38 U/L (16-63); Albumin Level 3.3 g/dL (3.4-5.0); Alkaline Phosphatase 53 U/L (46-116); Anion Gap 11 mmol/L (8-16); Aspartate Amino Transferase 52 U/L (15-37); Blood Urea Nitrogen 34 mg/dL (7-18); Calcium 8.7 mg/dL (8.5-10.1); Carbon Dioxide 26 mmol/L (21-32); Chloride 100 mmol/L (98-108); Estimated CRCL calculation 72 ml/min; Estimated Glomerular Filt Rate 52; Glucose 152 mg/dL (70-99); NT Pro B Type Natriuretic Pept 10291 pg/mL (0-125); Osmolality Calculated 294 mOsm/kg (285-295); Potassium 3.8 mmol/L (3.5-5.1); Sodium 137 mmol/L (136-145)
[2021-07-16 08:00] VITALS: BP 118/56; PULSE 72; RESP 20; O2SAT 93
[2021-07-16 08:12] LABS: Squamous Epithelial Cell Urine Few /hpf (Few); WBC Urine 0-3 /hpf (0-3)
[2021-07-16 08:13] LABS: Troponin I 1526.8 ng/L (0.00-60.4)
[2021-07-16 08:13] LABS: Bacteria Urine Trace /hpf
--- NOTE | 2021-07-16 08:13 | PC.NURSE ---
Lab called with troponin of 1526.8, Dr. Medrano notified.
--- NOTE | 2021-07-16 08:28 | PC.NURSE ---
Spoke with Joes diaz Model about possible admission for CHF.
--- NOTE | 2021-07-16 08:39 | PC.NURSE ---
[facility]
--- NOTE | 2021-07-16 08:47 | PC.NURSE ---
Attempted to call report. RN unavailable and will call back. Pt accepted by Dr. Sky at [place].
[2021-07-16 09:07] VITALS: BP 119/84; PULSE 68; RESP 20; O2SAT 93
--- NOTE | 2021-07-16 09:31 | PC.NURSE ---
Phone report given to HERBER Hardin at [place].
--- NOTE | 2021-07-16 09:34 | PC.NURSE ---
Morgan Carrera called for ALS transport to [place].
[2021-07-16 09:54] VITALS: BP 119/84; PULSE 69; RESP 20; TEMP 37; O2SAT 93
== END 2021-07-16 09:58 | disposition short-term general hospital (02) ==
PROVIDERS: Emergency Provider Emergency Medicine; PCP Nurse Practitioner Family
DX: U07.1 COVID-19 (principal); I11.0 Hypertensive heart disease with heart failure; I50.33 Acute on chronic diastolic (congestive) heart failure; E78.5 Hyperlipidemia, unspecified; E11.9 Type 2 diabetes mellitus without complications; M10.9 Gout, unspecified; G47.33 Obstructive sleep apnea (adult) (pediatric); Z87.891 Personal history of nicotine dependence; F33.9 Major depressive disorder, recurrent, unspecified; Z95.0 Presence of cardiac pacemaker; Z95.2 Presence of prosthetic heart valve
CPT/HCPCS: 36415; 80053; 81001; 83880; 84484; 85025; 87426; 87804; 93005; 99285; C9803

== ENCOUNTER 2021-07-16 10:36 | Observation (INO) | payer OTHER, MEDICARE, SELFPAY ==
--- NOTE | ~2021-07-16 | XR_ITS ---
XR chest 1V portable DATE: 07/16/2021 13:25 INDICATION: Chest pain, shortness of breath. Covid pneumonia. TECHNIQUE: Portable upright AP chest on 07/16/2021 at 1317 hours COMPARISON: 07/15/2021 2 view chest 07/16/2021 CT pulmonary scan is not available from PACS archive at this time FINDINGS: There is prominent patchy consolidation involving particularly the mid and lower lung zones . The findings are suggestive of bilateral pneumonia, very possibly Covid pneumonia. There is cardiomegaly, pulmonary vascular congestion and redistribution consistent with congestive he art failure; pulmonary edema is not excluded. Status post sternotomy. Left-sided transvenous pacemaker device with leads overlying right atrium and right ventricle. IMPRESSION: Prominent patchy consolidation involving particularly the mid and lower lung zones, subst antially increased since 07/15/2021, suggesting bilateral pneumonia, very possibly Covid 19;, or edema is not excluded Cardiomegaly and pulmonary vascular congestion/redistribution, consistent with congestive heart failu re Reviewed, dictated and finalized at location B. IMPRESSION: Prominent patchy consolidation involving particularly the mid and l ower lung zones, substantially increased since 07/15/2021, suggesting bilateral pneumonia, very possibly Covid 19;, or edema is not excluded Cardiomegaly and pulmonary vascular congestion/redistribution, consistent with congestive heart failure
[2021-07-16 11:11] VITALS: BMI 49.6
[2021-07-16 11:58] VITALS: BP 110/52; PULSE 73; RESP 18; TEMP 37.5; O2SAT 93
[2021-07-16 12:00] VITALS: PULSE 110
--- NOTE | 2021-07-16 12:42 | ECG_ITS ---
Measurements Intervals [place] Rate: 82 P: MS: 0 QRS: -71 QRSD: 161 T: -81 QT: 442 QTc: 519 Interpretive Statements ATRIAL FIBRILLATION ELECTRONIC VENTRICULAR COMPLEX LEFT AXIS DEVIATION LEFT BUNDLE BRANCH BLOCK BASELINE ARTIFACT- V5 ABNORMAL ECG Electronically Signed On 07-16-2021 14:14:04 CDT by Romero Echavarria D.O.
--- NOTE | 2021-07-16 12:46 | PM.IMHP ---
H&P: HPI History of Present Illness Date/Time: 07/16/21 12:46 this is a 66-year-old male patient who has a past medical history of having a pacemaker for bradycardia, aortic valve replacement with a cow valve, atrial fibrillation, congestive heart failure and obstructive sleep apnea. The patient came to the emergency room at [facility] for increased shortness of breath over the last 3 weeks. The patient stated that he this occurred after he went off of his Bumex and was placed on Lasix. He has increased ankle swelling he has cough without any fever. The patient had been to their emergency room yesterday and refused to be admitted. The patient stated he does not believe in COVID. However he tested positive for COVID 19 his test results came back today. The patient stated he does not believe it. Chest x-ray was read as findings consistent with congestive heart failure exacerbation unchanged small right pleural effusion. Pneumonia not excludable. The patient stated that Dr. montenegro is his engine specialist although he has seen Dr. Masterson in the past. The patient does have a dual lead pacemaker AICD and stated that Dr. Gaines placed this pacemaker. The patient is short of breath with exertion. Creatinine 1.36. GFR 52. Glucose 152. Troponin on the scale from 0-60.4 results were 1643.5 yesterday and today 1526.8. Patient denies any chest pain but is short of breath. The patient stated he took his medication as scheduled. The patient is being admitted to inpatient services on the date of service of 07/16/2021. Chief Complaint: sob Review of Systems Review of Systems: All systems reviewed & are unremarkable except as noted in HPI and below Constitutional: Constitutional: Reports as per HPI and Reports no additional constitutional complaints Eyes: Eyes: Reports as per HPI and Reports no additional eye complaints ENT: Reports system reviewed and no additional complaints, except as documented and Reports Normal hearing present Cardiovascular: Cardiovascular: Reports no additional cardiovascular complaints Respiratory: Respiratory: Reports no additional respiratory complaints and Reports no additional respiratory complaints Gastrointestinal: Gastrointestinal: Reports as per HPI and Reports no additional gastrointestinal complaints Musculoskeletal: Musculoskeletal: Reports no additional musculoskeletal complaints Integumentary/Breasts: Skin/Breast: Reports system reviewed and no additional complaints, except as docu and Reports as per HPI Neurologic: Reports system reviewed and no additional complaints, except as documented, Reports as per HPI and Reports Normal hearing present Psychiatric: Psychiatric: Reports no additional psychiatric complaints and Reports as per HPI Endocrine: Endocrine: Reports no additional endocrine complaints Hematologic/Lymphatic: Hematologic/Lymphatic: Reports no additional hematologic/lymphatic complaints Allergic/Immunologic: Allergic/Immunologic: Reports no additional allergic/immunologic complaints [facility] Past Medical History Medical History (Updated 07/16/21 @ 13:07 by Miryam Rincon NP) Dyslipidemia Essential hypertension Gout Grade III diastolic dysfunction Major depression, recurrent Morbid obesity Obstructive sleep apnea treated with BiPAP Pacemaker Type 2 diabetes mellitus Surgical History Surgical History (Updated 07/16/21 @ 13:01 by Miryam Rincon NP) History of aortic valve replacement (~2014) Hx of cholecystectomy S/P placement of cardiac pacemaker left side Family History Family History Father Kidney disease Mother Diabetes mellitus Heart disease Social History Social History (Updated 07/16/21 @ 13:02 by Miryam Rincon NP) Social History: Surrogate decision maker: Louisa Allred, . Code status: Full code. The patient has 2 children. The patient is retired from [employer] in [facility]
[2021-07-16 12:57] LABS: Troponin I 0.154 ng/mL (0.000-0.034)
[2021-07-16 13:23] LABS: Alanine Aminotransferase 32 U/L (4-50); Estimated Glomerular Filt Rate > 60
[2021-07-16 13:25] LABS: Lactic Acid Reflex 1.9 mmol/L (0.7-2.1)
[2021-07-16 13:32] LABS: INR 1.4; Prothrombin Time 17.3 Seconds (11.1-14.7)
[2021-07-16 13:34] LABS: Hemoglobin A1C 6.7 % (<5.7)
[2021-07-16 13:36] LABS: Magnesium 1.7 mg/dL (1.6-2.3)
[2021-07-16 13:46] LABS: Alanine Aminotransferase 30 U/L (4-50); Albumin Level 4.1 g/dL (3.5-5.1); Alkaline Phosphatase 50 U/L (38-126); Anion Gap 12 mmol/L (8-16); Aspartate Amino Transferase 77 U/L (17-59); Bilirubin,Total 1.5 mg/dL (0.2-1.3); Blood Urea Nitrogen 35 mg/dL (9-20); Calcium 8.4 mg/dL (8.4-10.2); Carbon Dioxide 22 mmol/L (22-30); Chloride 97 mmol/L (98-107); Estimated Glomerular Filt Rate > 60; Glucose 126 mg/dL (65-110); Potassium 4.5 mmol/L (3.4-5.0); Sodium 131 mmol/L (137-145)
--- NOTE | 2021-07-16 15:49 | PM.CNCAR ---
Assessment and Plan Assessment and plan (1) Elevated troponin: Code(s): R77.8 - Other specified abnormalities of plasma proteins Status: Acute Assessment and Plan: Could be related to volume overload and pneumonia. Check serial troponin. (2) COVID-19: Code(s): U07.1 - COVID-19 Status: Acute Assessment and Plan: Covid Pneumonia. Managed by hospitalist. (3) PAF (paroxysmal atrial fibrillation): Code(s): I48.0 - Paroxysmal atrial fibrillation Status: Acute Assessment and Plan: On Eliquis, and rate is normal. (4) Combined systolic and diastolic heart failure: Code(s): I50.40 - Unspecified combined systolic (congestive) and diastolic (congestive) heart failure Status: Acute Assessment and Plan: Acute on chronic combined systolic and diastolic heart failure. He is on Bumex 2 mg IV daily. Increase Bumex 2 mg IV BID. Add Spironolactone 25 mg PO daily. Resume Coreg and Lisinopril. (5) Essential hypertension: Code(s): I10 - Essential (primary) hypertension Status: Acute Assessment and Plan: Stable. (6) Hyperlipidemia associated with type 2 diabetes mellitus: Code(s): E11.69 - Type 2 diabetes mellitus with other specified complication; E78.5 - Hyperlipidemia, unspecified Status: Acute Assessment and Plan: On Atorvastatin. (7) History of aortic valve replacement with bioprosthetic valve: Code(s): Z95.3 - Presence of xenogenic heart valve Status: Acute Assessment and Plan: Stable. (8) Pacemaker: Code(s): Z95.0 - Presence of cardiac pacemaker Status: Acute Assessment and Plan: Biotronik. History of Present Illness History of Present Illness Consult date/time: 07/16/21 15:49 Reason for consult: CHF. Elevated troponin. 66 yr old man presented to [facility] for sob and was transferred to [facility] for further care. He has a history of CHB with Biotronik dual chamber pacemaker, DM, hypertension, dyslipidemia, ALEX on Bipap, bioprosthetic AVR in 2014 at [facility]. States that in last 1 month he noted more SOB and MARIE and orthopnea. He is limited at walking short distances due to sob. He is a former smoker. He was recently diagnosed with systolic heart failure and failed PO diuretics. He does not believe in covid and is in disbelief that he tested positive for it on 07/16/21. He did not receive covid vaccine. Troponin is 0.15. EKG shows atrial fib, LBBB. CXR shows CHF and bilateral pneumonia. Denies chest pain, palpitations, dizziness. Cardiovascular Procedures Echo/MUGA:: 07/03/21 Echo: TDS, EF 30-35%, diastolic dysfunction (E/e' 20), TAPSE 1.5 cm, mild LAE, bioprosthetic AVR, mild-mod MR/TR, RVSP 51 mmHg. Electrophysiology:: 07/04/21 EKG: Atrial fibrillation at 95 bpm, LBBB. 12/10/20 EKG: AV paced rhythm. 12/10/20 Dr. Masterson implanted Biotronik dual chamber pacemaker. Stress Tests:: 07/03/21 CXR: CM with interstitial edema, small pleural effusions. Reason For Visit: chf/covid positive Review of Systems Review of Systems: All systems reviewed & are unremarkable except as noted in HPI and below Constitutional: Constitutional: Reports as per HPI, Denies chills, Reports fatigue and Denies fever(s) Cardiovascular: Cardiovascular: Reports as per HPI, Denies chest pain, Reports irregular heart rhythm and Reports leg edema Respiratory: Respiratory: Reports as per HPI, Reports cough and Reports dyspnea Gastrointestinal: Gastrointestinal: Reports as per HPI and Denies abdominal pain Genitourinary: Genitourinary: Reports as per HPI and Denies dysuria Musculoskeletal: Musculoskeletal: Reports as per HPI Neurologic: Reports as per HPI, Denies dizziness and Denies syncope [facility] Past Medical History Medical History (Updated 07/16/21 @ 15:54 by Romero Echavarria DO) Dyslipidemia Essential hypertension Gout Grade III diastolic dysfunction Major depression, re
[2021-07-16 16:00] VITALS: BP 112/59; PULSE 69; PULSE 70; RESP 21; TEMP 37.2; O2SAT 95
[2021-07-16] MEDS: ATORVASTATIN 10 MG TABLET PO (17:59)
[2021-07-16] MEDS: MAGNESIUM OXIDE 400 MG TABLET PO (17:59)
[2021-07-16] MEDS: APIXABAN 5 MG TABLET PO (18:00)
[2021-07-16] MEDS: BUMETANIDE INJ 1 MG/4 ML VIAL 2 MG IV PUSH (18:01)
[2021-07-16 19:41] LABS: Troponin I 0.162 ng/mL (0.000-0.034)
[2021-07-16 20:00] VITALS: BP 110/72; PULSE 67; PULSE 90; RESP 18; TEMP 35.9; O2SAT 95
[2021-07-16 21:10] VITALS: PULSE 100
[2021-07-16] MEDS: carvediloL 6.25 MG TABLET PO (21:10)
[2021-07-16 21:16] LABS: Glucose Point of Care 143 mg/dl (65-105)
[2021-07-17] VITALS: BP 145/55; PULSE 89; PULSE 90; RESP 18; TEMP 35.6; O2SAT 94
[2021-07-17] MEDS: diphenhydrAMINE HCl CAP 25 MG CAPSULE PO (00:26)
[2021-07-17 04:00] VITALS: BP 120/93; PULSE 41; PULSE 85; RESP 16; TEMP 35.8; O2SAT 94
[2021-07-17 05:39] LABS: Glucose Point of Care 119 mg/dl (65-105)
[2021-07-17 06:19] LABS: Basophils Percent Auto 0.2 % (0.2-1.2); Hematocrit 41.4 % (42.0-52.0); Hemoglobin 13.5 g/dL (14.0-18.0); Immature Granulocyte Absolute 0.01 K/mm3 (0.00-0.031); Immature Granulocyte Percent A 0.2 % (0-0.5); Lymphocytes Absolute Auto 0.89 K/mm3 (0.9-3.2); Mean Corpuscular HGB Conc 32.6 g/dl (32-36); Mean Corpuscular Hemoglobin 30.8 pg (26-34); Mean Corpuscular Volume 94.5 fl (80-100); Mean Platelet Volume 12.1 fl (7.4-10.4); Monocytes Absolute Auto 0.4 K/mm3 (0.1-0.6); Monocytes Percent Auto 7.5 % (2.6-8.5); Neutrophils Absolute Auto 3.9 K/mm3 (1.3-6.7); Neutrophils Percent Auto 75.1 % (45.5-73.1); Platelet Count Result 157 k/mm3 (150-375); Red Blood Count 4.38 M/mm3 (4.6-6.20); Red Cell Distribution Width 13.7 % (11.5-14.5); White Blood Count 5.2 K/mm3 (4.5-10.0)
[2021-07-17 06:23] LABS: INR 1.4; Lactic Acid Reflex 1.4 mmol/L (0.7-2.1); Prothrombin Time 17.2 Seconds (11.1-14.7)
[2021-07-17 06:26] LABS: Alanine Aminotransferase 35 U/L (4-50); Albumin Level 4.1 g/dL (3.5-5.1); Alkaline Phosphatase 54 U/L (38-126); Anion Gap 13 mmol/L (8-16); Aspartate Amino Transferase 72 U/L (17-59); Bilirubin,Total 1.1 mg/dL (0.2-1.3); Blood Urea Nitrogen 39 mg/dL (9-20); CRP 4.7 mg/dL (<1.0); Calcium 8.5 mg/dL (8.4-10.2); Carbon Dioxide 28 mmol/L (22-30); Chloride 96 mmol/L (98-107); Estimated CRCL calculation 88 ml/min; Estimated Glomerular Filt Rate > 60; Glucose 130 mg/dL (65-110); Lactate Dehydrogenase 945 U/L (313-618); Magnesium 1.6 mg/dL (1.6-2.3); Potassium 3.5 mmol/L (3.4-5.0); Sodium 137 mmol/L (137-145)
[2021-07-17 06:39] LABS: Troponin I 0.152 ng/mL (0.000-0.034)
[2021-07-17 08:00] VITALS: BP 136/80; PULSE 83; PULSE 91; RESP 20; TEMP 36.4; O2SAT 96
[2021-07-17 08:43] LABS: Glucose Point of Care 101 mg/dl (65-105)
[2021-07-17] MEDS: methylPREDNISolone SOD SUCC 125 MG VIAL IV PUSH (09:09)
[2021-07-17 09:10] VITALS: O2SAT 96
[2021-07-17] MEDS: diphenhydrAMINE HCl INJ 50 MG/ML VIAL 25 MG IV PUSH (09:14)
--- NOTE | 2021-07-17 10:02 | PM.IMPN ---
Progress Note: A&P Additional Plan START OF DOCTOR AJIT?S PROGRESS NOTE Subjective: The patient gets that his dyspnea has improved and that is by pedal edema has improved as well. Overnight he denies fever, rigors, nausea, wheeze, chest pain, palpitations, sensation of rapid heartbeat, such as irregular heartbeat. He admits to cough which is productive of ?pink? sputum. I have explained to the patient his current medical condition plan of care and I have answered all his questions Objective: General: -Alert -No acute distress -No dyspnea -No tachypnea -obese Heart: -Regular rate -iRegular rhythm -No murmurs -No gallops -No rubs Lungs: -No wheeze -No rhonchi -trace bibasilar rales Abdomen: -Normal bowel sounds in all four quadrants -No rebound -No guarding -No tenderness Extremities: -2/4 pulse in all four extremities -No clubbing -No cyanosis -1+ pitting bipedal edema Additional Details / Additional Findings / Exceptions / Miscellaneous: Pertinent Laboratory Results / Pertinent Radiology Results / Pertinent Diagnostic Results / Pertinent Vital Signs: Vital signs stable, AST 72, hemoglobin 13.5 Assessment / Plan: Dyspnea, secondary to CHF exacerbation. Per echocardiogram from July 03, 2021, ejection fraction 30-35% with moderate pulmonary hypertension. Lisinopril 20 mg p.o. daily plus Bumex 2 mg IV b.i.d. plus Coreg 6.25 mg p.o. b.i.d. plus Aldactone 0.5 mg p.o. daily COVID 19 positive. Patient appears asymptomatic from this standpoint. Dexamethasone 6 mg IV daily Elevated troponin, query NSTEMI. Troponins flat. I appreciate Cardiology about the patient. Lipitor 10 mg p.o. q.h.s. plus Coreg 6.25 mg p.o. b.i.d. plus aspirin 81 mg p.o. daily Anemia. Will monitor hemoglobin level intermittently. Check serum ferritin, iron panel, fecal occult blood Acute renal insufficiency. Results Microscopic hematuria. Outpatient follow-up with Urology upon discharge Atrial fibrillation, status post pacemaker placement. Eliquis 5 mg p.o. b.i.d. plus Coreg 6.25 mg p.o. b.i.d. Reported history of bradycardia, status post pacemaker placement History of bovine aortic valve replacement Obstructive sleep apnea. CPAP/BiPAP: Okay to use home device and/or pressure when sleeping Hyperlipidemia. Lipitor 10 mg p.o. q.h.s. Hypertension. Lisinopril 20 mg p.o. daily plus Bumex 2 mg IV b.i.d. plus Coreg 6.25 mg p.o. b.i.d. plus Aldactone 0.5 mg p.o. daily Gout. Allopurinol 300 mg p.o. daily Depression. Zoloft 100 mg p.o. daily Diabetes. Will check fingerstick glucose q.a.c. and HS and provide insulin sliding scale Obesity. Patient counseled regarding lifestyle modification GI prophylaxis. Protonix 40 mg p.o. daily It is DVT prophylaxis. Eliquis 5 mg p.o. b.i.d. Disposition: Pending re-evaluation/further recommendations from Cardiology, patient may potentially be a candidate for discharge on this day of July 17, 2021 END OF DOCTOR AJIT?S PROGRESS NOTE Subjective Date/time seen: 07/17/21 10:02 Objective Data Vital Signs Vital Signs: Vital Signs - 24 hr 07/16/21 11:58 07/16/21 12:00 07/16/21 16:00 Temperature 99.5 F 99.0 F Pulse Rate 73 110 H 70 Respiratory Rate 18 21 H Blood Pressure 110/52 L 112/59 L Pulse Oximetry 93 95 07/16/21 20:00 07/16/21 21:10 07/17/21 00:00 Temperature 96.6 F L 96.0 F L Pulse Rate 90 100 89 Respiratory Rate 18 18 Blood Pressure 110/72 145/55 H Pulse Oximetry 95 94 07/17/21 04:00 07/17/21 08:00 07/17/21 09:10 Temperature 96.5 F L 97.5 F L Pulse Rate 41 L 83 Respiratory Rate 16 20 Blood Pressure 120/93 H 136/80 Pulse Oximetry 94 96 96 Intake/Output Intake/Output: Intake & Output 07/14/21 07/15/21 07/16/21 07/17/21 23:59 23:59 23:59 23:59 Intake Total 240 400 Output Total 600 Balance 240 -200 Meds/Results Medications: Active Medications Generic Name Dose
[2021-07-17] MEDS: BUMETANIDE INJ 1 MG/4 ML VIAL 2 MG IV PUSH (10:51)
[2021-07-17] MEDS: APIXABAN 5 MG TABLET PO (10:51)
[2021-07-17] MEDS: allopurinoL 300 MG TABLET PO (10:51)
[2021-07-17] MEDS: ASPIRIN 81 MG CHEWABLE TABLET PO (10:52)
[2021-07-17] MEDS: SERTRALINE HCL 50 MG TABLET 100 MG PO (10:52)
[2021-07-17] MEDS: SPIRONOLACTONE 25 MG TABLET PO (10:52)
[2021-07-17] MEDS: lisinopriL 20 MG TABLET PO (10:52)
[2021-07-17 10:53] VITALS: PULSE 96
[2021-07-17] MEDS: MAGNESIUM OXIDE 400 MG TABLET PO (10:53)
[2021-07-17] MEDS: carvediloL 6.25 MG TABLET PO (10:53)
[2021-07-17] MEDS: PANTOPRAZOLE 40 MG TABLET PO (10:57)
--- NOTE | 2021-07-17 11:12 | PM.PNCARD ---
Progress Note: A&P Assessment and Plan (1) Elevated troponin: Code(s): R77.8 - Other specified abnormalities of plasma proteins Status: Acute Assessment and Plan: Could be related to volume overload and pneumonia. Serial troponin is flat. (2) COVID-19: Code(s): U07.1 - COVID-19 Status: Acute Assessment and Plan: Covid Pneumonia. Managed by hospitalist. (3) PAF (paroxysmal atrial fibrillation): Code(s): I48.0 - Paroxysmal atrial fibrillation Status: Acute Assessment and Plan: On Eliquis, and rate is normal. (4) Combined systolic and diastolic heart failure: Code(s): I50.40 - Unspecified combined systolic (congestive) and diastolic (congestive) heart failure Status: Acute Assessment and Plan: Acute on chronic combined systolic and diastolic heart failure. He is on Bumex 2 mg IV daily. Increase Bumex 2 mg IV BID. Add Spironolactone 25 mg PO daily. Resume Coreg and Lisinopril. If he goes home which he may as he is feeling OK and wants to go home, would change Bumex 2 mg PO BID. Continue Spironolactone 25 mg daily and Coreg 6.125 mg BID and Lisinopril 20 mg daily. Have him f/u with me in 1 week. At that time he will need his Biotronik pacemaker interrogated. (5) Essential hypertension: Code(s): I10 - Essential (primary) hypertension Status: Acute Assessment and Plan: Stable. (6) Hyperlipidemia associated with type 2 diabetes mellitus: Code(s): E11.69 - Type 2 diabetes mellitus with other specified complication; E78.5 - Hyperlipidemia, unspecified Status: Acute Assessment and Plan: On Atorvastatin. (7) History of aortic valve replacement with bioprosthetic valve: Code(s): Z95.3 - Presence of xenogenic heart valve Status: Acute Assessment and Plan: Stable. (8) Pacemaker: Code(s): Z95.0 - Presence of cardiac pacemaker Status: Acute Assessment and Plan: Biotronik. Subjective Date/time seen: 07/17/21 11:12 Reports coughing with sputum production. No chest pain. Has some sob when he has coughing. Exam Const: General: cooperative, healthy appearing and comfortable Nutritional Appearance: obese Resp: Auscultation: clear to auscultation bilaterally, no crackles, no rales, no rhonchi and no wheezes Cardio: Jugular venous distension: no JVD Rate: regular rate Rhythm: abnormal rhythm Heart sounds: no murmurs Peripheral pulses: dorsalis pedis present GI: GI Palp: No abdominal tenderness and Yes Soft to palpation Neuro: General: oriented to person, oriented to place and oriented to time Extrem: Right lower extremity: edema Left lower extremity: edema Other: Trace edema of both legs. Objective Data Vital Signs Vital Signs: Vital Signs - 24 hr 07/16/21 11:58 07/16/21 12:00 07/16/21 16:00 Temperature 99.5 F 99.0 F Pulse Rate 73 110 H 70 Respiratory Rate 18 21 H Blood Pressure 110/52 L 112/59 L Pulse Oximetry 93 95 07/16/21 20:00 07/16/21 21:10 07/17/21 00:00 Temperature 96.6 F L 96.0 F L Pulse Rate 90 100 89 Respiratory Rate 18 18 Blood Pressure 110/72 145/55 H Pulse Oximetry 95 94 07/17/21 04:00 07/17/21 08:00 07/17/21 09:10 Temperature 96.5 F L 97.5 F L Pulse Rate 41 L 83 Respiratory Rate 16 20 Blood Pressure 120/93 H 136/80 Pulse Oximetry 94 96 96 07/17/21 10:53 Temperature Pulse Rate 96 Respiratory Rate Blood Pressure Pulse Oximetry Intake/Output Intake/Output: Intake & Output 07/14/21 07/15/21 07/16/21 07/17/21 23:59 23:59 23:59 23:59 Intake Total 240 400 Output Total 600 Balance 240 -200 Meds/Results Medications: Active Medications Generic Name Dose Route Start Last Admin Trade Name Freq PRN Reason Stop Dose Admin Albuterol 2 puff 07/16/21 16:21 Albuterol Sulfate (*Sp) Aerosol 1 Puff INHALATION Q6H PRN shortness of breath or wheezing Allopurinol 300 mg 07/17/21 0
[2021-07-17 11:52] LABS: Glucose Point of Care 138 mg/dl (65-105)
[2021-07-17 12:00] VITALS: BP 108/52; PULSE 92; PULSE 97; RESP 24; TEMP 37.3; O2SAT 93
--- NOTE | 2021-07-17 12:40 | PM.DS ---
DS: Admitting Diagnosis Discharge Date 12:43 p.m. on July 17, 2021 Admitting Diagnosis Acute on chronic CHF DS: Summary Hospital Course Hospital Course: See further down on the discharge summary Time Spent with Patient Time attestation: Total time spent providing and/or coordinating discharge services: START OF DOCTOR AJIT?S DISCHARGE SUMMARY Date of Admission: July 16, 2021 Date of Discharge: 12:41 p.m. on June 20, 2021 Primary Diagnosis: Dyspnea secondary to acute on chronic CHF Secondary Diagnosis: COVID-19 positive Elevated troponin, likely secondary to CHF exacerbation paragraph anemia paragraph acute renal insufficiency, resolved Microscopic hematuria CHF, ejection fraction 30-35% per echocardiogram from July 03, 2021 Moderate pulmonary hypertension Atrial fibrillation, status post pacemaker placement Documented history of bradycardia, status post pacemaker placement History of bovine aortic valve replacement Obstructive sleep apnea Hyperlipidemia Hypertension Gout Depression Diabetes Obesity Consultations: Cardiology Disposition: The patient is advised follow-up with cardiology as directed for his history of congestive heart failure as well as atrial fibrillation The patient is advised follow up Urology to 4 weeks post discharge for diagnosis of microscopic hematuria Discharge Medications: Bumex 1 mg p.o. daily Metformin 1000 mg p.o. b.i.d. Proventil HFA: 90 mg per spray: 2 puffs q.6 hours p.r.n. shortness of breath/wheeze Allopurinol 300 mg p.o. daily Eliquis 5 mg p.o. b.i.d. Aldactone 25 mg p.o. daily Lipitor 10 mg p.o. q.h.s. Coreg 6.25 mg p.o. b.i.d. Lisinopril 20 mg p.o. daily Magnesium oxide 400 mg p.o. b.i.d. Zoloft 100 mg p.o. daily Aspirin 81 mg p.o. daily Dexamethasone 6 mg p.o. daily. Quantity 8. 0 refills END OF DOCTOR AJIT?S DISCHARGE SUMMARY DS: Data Data Completed and Pending Labs on day of discharge: Labs from last 24 hours 07/17/21 07/17/21 07/17/21 11:29 08:00 06:05 WBC RBC Hgb Hct MCV MCH MCHC RDW Plt Count MPV Immature Gran % (Auto) Neut % (Auto) Lymph % (Auto) [place] % (Auto) Eos % (Auto) Baso % (Auto) Lymph # (Auto) [place] # (Auto) Eos # (Auto) Baso # (Auto) Abs Immat Gran (auto) Absolute Neuts (auto) Absolute Nucleated RBC Nucleated RBC % PT INR Sodium Potassium Chloride Carbon Dioxide Anion Gap BUN Creatinine Estim Creat Clear Calc Estimated GFR Glucose POC Capillary Glucose 138 H 101 Hemoglobin A1c Lactic Acid Calcium Phosphorus Magnesium Iron Cancelled TIBC Cancelled % Saturation Cancelled Ferritin Cancelled Total Bilirubin AST ALT Alkaline Phosphatase Lactate Dehydrogenase Troponin I C-Reactive Protein Total Protein Albumin 07/17/21 07/17/21 07/17/21 06:02 06:02 06:02 WBC RBC Hgb Hct MCV MCH MCHC RDW Plt Count MPV Immature Gran % (Auto) Neut % (Auto) Lymph % (Auto) [place] % (Auto) Eos % (Auto) Baso % (Auto) Lymph # (Auto) [place] # (Auto) Eos # (Auto) Baso # (Auto) Abs Immat Gran (auto) Absolute Neuts (auto) Absolute Nucleated RBC Nucleated RBC % PT 17.2 H INR 1.4 Sodium Potassium Chloride Carbon Dioxide Anion Gap BUN Creatinine Estim Creat Clear Calc Estimated GFR Glucose POC Capillary Glucose Hemoglobin A1c Lactic Acid 1.4 Calcium Phosphorus Magnesium Iron TIBC % Saturation Ferritin 324.00 H Total Bilirubin AST ALT Alkaline Phosphatase Lactate Dehydrogenase Troponin I C-Reactive Protein Total Protein Albumin 07/17/21 07/17/21 07/17/21 06:02
== END 2021-07-17 13:35 | disposition home or self-care (01) ==
PROVIDERS: Nurse Practitioner; Admitting Provider Internal Medicine; PCP Nurse Practitioner Family; Visit Provider Internal Medicine
DX: U07.1 COVID-19 (principal); R77.8 Other specified abnormalities of plasma proteins; R06.02 Shortness of breath; I50.43 Acute on chronic combined systolic (congestive) and diastolic (congestive) heart failure; I11.0 Hypertensive heart disease with heart failure; I48.91 Unspecified atrial fibrillation; E78.5 Hyperlipidemia, unspecified; E66.01 Morbid (severe) obesity due to excess calories; E11.9 Type 2 diabetes mellitus without complications; F32.9 Major depressive disorder, single episode, unspecified; G47.33 Obstructive sleep apnea (adult) (pediatric); I27.20 Pulmonary hypertension, unspecified; Z95.2 Presence of prosthetic heart valve; Z68.42 Body mass index [BMI] 45.0-49.9, adult; Z87.891 Personal history of nicotine dependence; Z95.810 Presence of automatic (implantable) cardiac defibrillator; Z79.84 Long term (current) use of oral hypoglycemic drugs
CPT/HCPCS: 36415; 71045; 80053; 82565; 82728; 82948; 83036; 83605; 83615; 83735; 84100; 84460; 84484; 85025; 85610; 86140; 87040; 93005; 96374; 96375; A9270; G0378; J1100; J1200; J2930

== ENCOUNTER 2021-08-08 15:19 | Outpatient (NON) | payer OTHER, MEDICARE, SELFPAY | END 2021-08-08 15:20 | disposition home or self-care (01) | PROVIDERS: Visit Provider Family Medicine | DX: R30.0 Dysuria (principal) | CPT/HCPCS: 87086; 87088 ==

== ENCOUNTER 2021-09-22 00:54 | Day surgery (SDC) | payer OTHER, MEDICARE, SELFPAY ==
[2021-09-19 12:56] VITALS: BMI 47.4
[2021-09-22] VITALS (8 sets, daily range): BP systolic 121–147; BP diastolic 62–100; PULSE 69; RESP 17–22; TEMP 36.2–36.3; O2SAT 95–100
[2021-09-22 08:58] LABS: Basophils Absolute Auto 0.1 K/mm3 (0.0-0.1); Basophils Percent Auto 0.7 % (0.2-1.2); Eosinophils Absolute Auto 0.2 K/mm3 (0-0.3); Hematocrit 36.5 % (42.0-52.0); Hemoglobin 12.4 g/dL (14.0-18.0); Immature Granulocyte Absolute 0.02 K/mm3 (0.00-0.031); Immature Granulocyte Percent A 0.2 % (0-0.5); Lymphocytes Absolute Auto 2.01 K/mm3 (0.9-3.2); Lymphocytes Percent Auto 23.3 % (18.3-44.2); Mean Corpuscular Hemoglobin 32.3 pg (26-34); Mean Corpuscular Volume 95.1 fl (80-100); Mean Platelet Volume 11.9 fl (7.4-10.4); Monocytes Absolute Auto 0.6 K/mm3 (0.1-0.6); Neutrophils Absolute Auto 5.8 K/mm3 (1.3-6.7); Neutrophils Percent Auto 66.8 % (45.5-73.1); Platelet Count Result 231 k/mm3 (150-375); Red Blood Count 3.84 M/mm3 (4.6-6.20); Red Cell Distribution Width 15.8 % (11.5-14.5); White Blood Count 8.6 K/mm3 (4.5-10.0)
[2021-09-22 09:07] LABS: Anion Gap 7 mmol/L (8-16); Blood Urea Nitrogen 23 mg/dL (9-20); Calcium 9.6 mg/dL (8.4-10.2); Carbon Dioxide 32 mmol/L (22-30); Chloride 97 mmol/L (98-107); Estimated CRCL calculation 79 ml/min; Estimated Glomerular Filt Rate > 60; Glucose 132 mg/dL (65-110); Potassium 3.5 mmol/L (3.4-5.0); Sodium 136 mmol/L (137-145)
[2021-09-22] MEDS: diphenhydrAMINE HCl INJ 50 MG/ML VIAL IV PUSH (09:25)
[2021-09-22] MEDS: methylPREDNISolone SOD SUCC 125 MG VIAL IV PUSH (09:26)
[2021-09-22] MEDS: FAMOTIDINE 20 MG/2 ML VIAL IV PUSH (09:26)
--- NOTE | 2021-09-22 14:27 | WPDMODSED ---
Moderate Sedation Note-Pt Data Patient Data Diagnosis: left ventricular systolic dysfunction persistent atrial fibrillation with onset in January of this year previous history of complete heart block with normally functioning dual-chamber pacemaker history of bioprosthetic aortic valve replacement 6 years ago Present Complaint: shortness of breath Procedure to be performed/Plan: coronary angiogram Allergies Allergy/AdvReac Type Severity Reaction Status Date / Time aspartame Allergy Severe Unknown Verified 09/19/21 12:52 cyclobenzaprine [Flexeril] Allergy Intermediate Unknown Verified 09/19/21 12:52 Penicillins Allergy Intermediate Unknown Verified 09/19/21 12:52 iohexol Allergy Hives Verified 09/22/21 08:35 [From contrast - CT, X-RAY] Home Medications Medication Instructions Recorded Confirmed Type albuterol sulfate 2 puff INHALATION Q6H PRN #18 g 10/12/20 09/19/21 Rx atorvastatin 10 mg tablet 10 mg PO QPM #90 tablet 06/17/21 09/19/21 Rx metformin 1,000 mg tablet 1,000 mg PO BID #180 tablet 06/24/21 09/19/21 Rx apixaban 5 mg tablet 5 mg PO BID #60 tablet 07/04/21 09/19/21 Rx magnesium oxide 400 mg (241.3 mg 400 mg PO BID #60 tablet 07/04/21 09/19/21 Rx magnesium) tablet sertraline 100 mg PO DAILY 07/16/21 09/19/21 History aspirin [Children's Aspirin] 81 mg PO DAILY@0800 #30 tablet 07/17/21 09/19/21 Rx dexamethasone 6 mg PO DAILY #8 tablet 07/17/21 09/19/21 Rx lisinopril 20 mg PO DAILY #30 tablet 07/17/21 09/19/21 Rx bumetanide 2 mg tablet 2 mg PO BID #60 tablet 09/01/21 09/19/21 Rx carvedilol 6.25 mg tablet 6.25 mg PO Q12H #60 tablet 09/01/21 09/19/21 Rx vit C-s.gslewh-htnemr-bwlan sd 30 cap PO DAILY 09/19/21 09/19/21 History [Tart Jung] Current Medications: Active Medications Sodium Chloride (Normal Saline Iv) 500 mls @ 100 mls/hr IV CONT .Q5H CARROLL Sedation/Anesthesia: No previous sedation/anesthesia problems (including family history). COUNT INCLUDES THE [facility] Past Medical History Medical History Dyslipidemia Essential hypertension Gout Grade III diastolic dysfunction Major depression, recurrent Morbid obesity Obstructive sleep apnea treated with BiPAP Pacemaker Type 2 diabetes mellitus Surgical History Surgical History History of aortic valve replacement (~2014) Hx of cholecystectomy S/P placement of cardiac pacemaker left side Family History Family History Father Kidney disease Mother Diabetes mellitus Heart disease Social History Social History Social History: Surrogate decision maker: Louisa Allred, . Code status: Full code. The patient has 2 children. The patient is retired from [employer] in [place]. The patient is a ex-smoker. He does not use any alcohol marijuana or illicit drugs. Smoking packs per day: 2 Smoking cigarettes per day: 40.0 Years smoked: 30 Smoking pack-years: 60.00 Smoking status: Never smoker Alcohol intake: never Substance use: never Substance use type: does not use Living arrangements: with family Additional living arrangements comments: The patient lives in [place] with his .. Additional occupation/education comments: Retired. Gender identity (if verbalized by the patient): Male Spiritual care concerns: No Mod Sed Physical Exam Physical Exam Pre Procedural Exam: Normal: Throat, Airway, Lungs and Neuro Exam and Variation: Appearance ( morbidly obese white male no distress), Heart Size ( PMI not palpable), Heart Rate and Heart Rhythm ( irregularly irregular) Hours since solid foods: 12 Hours since liquid intake: 12 Mallampati Classification: class II Internal Medicine - PN: Obj Da Meds/Results Medications: Active Medications Generic Name Dose Route Start Last Admin Tra
--- NOTE | 2021-09-22 14:59 | P.PCNCC_ITS ---
Cardiac Cath Procedure Note Date of procedure:: 09/22/21 Performing physician:: Manuel Masterson MD Indication:: left ventricular systolic dysfunction previous aortic valve replacement previous pacemaker for complete heart block persistent atrial fibrillation Brief clinical history:: this is a 66-year-old patient with a history of valvular heart disease and complete heart block who received a bioprosthetic aortic valve replacement in 2014. In the early part of this year the patient received a dual-chamber pacemaker for evidence of complete heart block. In follow-up he has become more short of breath and has declining LV systolic function. Pacemaker follow-up has demonstrated evidence of persistent atrial fibrillation since January of 2021. Because of declining LV function a coronary angiogram has been recommended. The patient did not have any coronary disease at the time of his aortic valve replacement Procedure Procedure performed:: coronary angiogram Angio-Seal to right femoral artery Sedation/Medication given:: no sedation case start time 2:40 p.m. case end time 2:56 p.m. Access site:: right femoral artery Estimated blood loss:: 10 cc Procedure note:: patient was brought to the cardiac catheterization lab in the postabsorptive state the right femoral triangle was prepared and draped in the usual fashion. Anesthesia was provided with 1% lidocaine infiltrated locally. Because of the patient's morbid obesity and sleep apnea I elected to provide no additional sedation. The femoral artery was punctured using the modified Seldinger technique and a 5 Jordanian vascular sheath was placed. I then utilized a 5 Jordanian FL4 catheter to engage and inject the left coronary artery in multiple projections. A 5 Jordanian JR4 catheter was used to engage and inject the right coronary artery. I elected not to attempt across his prosthetic aortic valve as recent echocardiography demonstrates normal valve function. Following this a femoral artery angiogram was done through the sheath after which an Angio-Seal device was deployed with a good hemostatic result. He left the [employer] with no signs of any procedural complications and no evidence of a groin hematoma. Findings:: Hemodynamics: This was limited to central aortic pressure was 126/82. The left main coronary artery is widely patent the left anterior descending is a moderate caliber artery extending down to around the cardiac apex. The LAD is smooth and angiographically normal in appearance the circumflex is a moderate caliber artery giving rise to the marginal branches. The circumflex system is smooth and angiographically normal in appearance. The right coronary artery is large caliber and dominant to the posterior circulation the right coronary artery is smooth and angiographically normal in appearance Conclusion:: 1. right coronary dominant circulation with no evidence of coronary artery disease 2. Angio-Seal to right femoral artery Manuel Masterson MD FACC
--- NOTE | 2021-09-22 18:25 | SUR.PHASEII ---
DISCHARGED HOME, OUT VIA WC W/ PERSONAL BELONGINGS, OWN CANE, DISCHARGE PACKET, TO 'S WAITING CAR. STEADY GAIT. DENIES CP OR SOB. R. GROIN SITE REMAINS WITHOUT CHANGE. R. PEDAL PULSE PALP EASILY. NO DISTRESS NOTED. VOICES NO C/O.
== END 2021-09-22 18:25 | disposition home or self-care (01) ==
PROVIDERS: PCP Nurse Practitioner Family; Visit Provider Specialist
PROC: 4A023N7 Measurement of Cardiac Sampling and Pressure, Left Heart, Percutaneous Approach (ICD-10-PCS; CPT 93452; principal; 2021-09-22 10:00)
DX: I11.9 Hypertensive heart disease without heart failure (principal); I44.2 Atrioventricular block, complete; I48.19 Other persistent atrial fibrillation; R06.02 Shortness of breath; Z95.2 Presence of prosthetic heart valve; Z95.0 Presence of cardiac pacemaker; E78.5 Hyperlipidemia, unspecified; G47.33 Obstructive sleep apnea (adult) (pediatric); E11.9 Type 2 diabetes mellitus without complications; F33.9 Major depressive disorder, recurrent, unspecified; Z79.51 Long term (current) use of inhaled steroids; Z79.84 Long term (current) use of oral hypoglycemic drugs; Z79.01 Long term (current) use of anticoagulants; Z79.82 Long term (current) use of aspirin
CPT/HCPCS: 36415; 80048; 85025; 93458; C1760; C1887; C1894; G0269; J1200; J1644; J2930; J7040

== ENCOUNTER 2021-09-23 21:23 | Emergency (ER) | payer OTHER, MEDICARE, SELFPAY ==
--- NOTE | ~2021-09-23 | XR_ITS ---
EXAMINATION: XR chest 1V portable EXAM DATE: 09/23/2021 22:17 INDICATION: SOB today. Hx of CHF and AFIB. TECHNIQUE: Portable AP frontal chest x-ray was obtained. Comparison is made to prior examination from 07/16/2021. FINDINGS: Sternotomy wires are present without findings to suggest sternal dehiscence. There is a [place] l lead pacemaker/AICD seen with leads projecting over the expected locations of the right atrial appe ndage and right ventricle. Moderate cardiomegaly. Pulmonary vascular congestion. Improvement in previ ously seen bilateral airspace disease. IMPRESSION: Cardiomegaly congestion. Ill-defined bibasilar airspace disease with improvement, edema or pneumonia. Reviewed, dictated and finalized at location G. WDOWN OPERATOR IMPRESSION: Cardiomegaly congestion. Ill-defined bibasilar airspace disease wi th improvement, edema or pneumonia.
[2021-09-23 21:42] VITALS: BP 130/88; PULSE 99; RESP 18; TEMP 36.8; O2SAT 99
--- NOTE | 2021-09-23 21:43 | ED.SOB ---
HPI - SOB/Dyspnea General Chief Complaint: Shortness of Breath/Dyspnea Stated Complaint: allergic reaction Time Seen by Provider: 09/23/21 21:44 Source: patient Mode of arrival: ambulatory Limitations: no limitations History of Present Illness HPI Narrative: 66-year-old male with a history of obesity, ALEX, diabetes mellitus, hypertension, bioprosthetic aortic valve replacement in 2014, complete heart block status post dual-chamber pacemaker, systolic and diastolic CHF with an EF of 30-35%, paroxysmal atrial fibrillation on Eliquis, COVID in June of 2021 was noted to have worsening shortness of breath. yesterday he had a cardiac catheterization. he has a prior history of allergic reaction to radiocontrast medium. The patient received preprocedure steroids and Benadryl. he was discharged from the hospital yesterday. He presents today with -- erythematous rash on his face, back of the head and neck which is itchy. -- The patient has a hoarse voice for the past 2 years. No recent changes in his voice. -- Patient complains of chronic shortness of breath. -- He denied lightheadedness or abdominal pain. MD elicited complaint: shortness of breath and cough Pertinent past history: congestive heart failure and diabetes Onset (ago): day(s) ( One day) Context: recent illness ( received IV radiocontrast yesterday to which he is allergic) and anxiety Severity: mild Exacerbating factors: nothing Relieving factors: nothing Known history of: congestive heart failure Associated symptoms: rash Treatment prior to arrival: other ( 75 mg of Benadryl.) Related Data Home Medications Medication Instructions Recorded Confirmed sertraline 100 mg PO DAILY 07/16/21 09/23/21 vit C-s.awtgrc-linjbe-azntn sd 30 cap PO DAILY 09/19/21 09/23/21 [Tart Jung] Allergies Allergy/AdvReac Type Severity Reaction Status Date / Time aspartame Allergy Severe Unknown Verified 09/23/21 22:04 cyclobenzaprine [Flexeril] Allergy Intermediate Unknown Verified 09/23/21 22:04 Penicillins Allergy Intermediate Unknown Verified 09/23/21 22:04 iohexol Allergy Hives Verified 09/23/21 22:04 [From contrast - CT, X-RAY] Review of Systems Review of Systems: All systems reviewed & are unremarkable except as noted in HPI and below Constitutional: Constitutional: Reports as per HPI and Reports no additional constitutional complaints Eyes: Eyes: Reports as per HPI and Reports no additional eye complaints ENT: Reports system reviewed and no additional complaints, except as documented Cardiovascular: Cardiovascular: Reports as per HPI and Reports no additional cardiovascular complaints Respiratory: Respiratory: Reports dyspnea and Reports dyspnea on exertion Gastrointestinal: Gastrointestinal: Reports as per HPI and Reports no additional gastrointestinal complaints Genitourinary: Genitourinary: Reports no additional male genitourinary complaints Musculoskeletal: Musculoskeletal: Reports no additional musculoskeletal complaints and Reports as per HPI Integumentary/Breasts: Comments: Erythematous rash on his face, back of the head and neck which is itchy Neurologic: Reports system reviewed and no additional complaints, except as documented Psychiatric: Psychiatric: Reports no additional psychiatric complaints and Reports as per HPI [facility] Past Medical History Medical History Dyslipidemia Essential hypertension Gout Grade III diastolic dysfunction Major depression, recurrent Morbid obesity Obstructive sleep apnea treated with BiPAP Pacemaker Type 2 diabetes mellitus Surgical History Surgical History History of aortic valve replacement (~2014) Hx of cholecystectomy S/P placement of cardiac pacemaker left side Family History Family History Father Kidney disease Mother
[2021-09-23] MEDS: methylPREDNISolone SOD SUCC 125 MG VIAL IM (22:17)
[2021-09-23 23:02] VITALS: BP 122/104; PULSE 71; RESP 18; O2SAT 98
== END 2021-09-23 23:05 | disposition home or self-care (01) ==
PROVIDERS: Emergency Provider Internal Medicine Critical Care Medicine; PCP Nurse Practitioner Family
DX: I50.42 Chronic combined systolic (congestive) and diastolic (congestive) heart failure (principal)
CPT/HCPCS: 71045; 96372; 99283; J2930

== ENCOUNTER 2021-10-03 13:57 | Outpatient (CLI) | payer OTHER, MEDICARE, SELFPAY ==
--- NOTE | 2021-10-03 14:06 | ECHO_ITS ---
Patient Info Name: Primitivo Allred Age: 66 years : 1955 Gender: Male Ht: 70 in Wt: 330 lbs BSA: 2.80 m2 HR: 74 bpm BP: 135 / 81 mmHg Exam Date: 10/03/2021 2:55 PM Exam Location: [facility] Patient Status: Outpatient Admit Date: 10/03/2021 Staff Ordering Physician: Romero Echavarria DO Dish Carrier: Kenyatta Serna Attending Provider: Romero Echavarria DO Referring Physician: Jericho BAJWA; Exam Type: CA echo doppler color flow Study Info Indications I50.40 - Unspecified combined systolic (congestive) and diastolic (congestive) heart failure Complete two-dimensional, color flow and Doppler transthoracic echocardiogram is performed. Summary 1. Complete two-dimensional, color flow and Doppler transthoracic echocardiogram is performed. 2. Technically suboptimal study due to poor sonographic images. Patient refused definity contrast agent. 3. Left ventricular chamber dimension is moderately enlarged. 4. Left ventricular systolic function is moderately reduced, estimated at 40-45%. 5. There is mildly increased left ventricular wall thickness. 6. The left ventricular diastolic function is abnormal. 7. E/e' 25 is elevated. 8. Left atrial chamber dimension is moderately enlarged. 9. The bioprosthetic aortic valve is not well visualized. 10. There is mild to moderate regurgitation of the bioprosthetic aortic valve. 11. There is mild to moderate mitral valve regurgitation. 12. Mild pulmonary hypertension, estimated pulmonary arterial systolic pressure is 46 mmHg. 13. Dilated inferior vena cava with <50% collapse upon inspiration consistent with significantly elevated right atrial pressure, 15 mmHg. Left Ventricle E/e' 25 is elevated. Technically suboptimal study due to poor sonographic images. Patient refused definity contrast agent. Left ventricular chamber dimension is moderately enlarged. Left ventricular systolic function is moderately reduced, estimated at 40-45%. There is mildly increased left ventricular wall thickness. The left ventricular diastolic function is abnormal. Right Ventricle Right ventricular chamber dimension is not well visualized. Left Atria Left atrial chamber dimension is moderately enlarged. Right Atria Right atrial chamber dimension is normal. Aortic Valve The bioprosthetic aortic valve is not well visualized. There is no bioprosthetic aortic valve stenosis. There is mild to moderate regurgitation of the bioprosthetic aortic valve. Pulmonic Valve There is no pulmonic regurgitation. Mitral Valve There is no mitral valve stenosis. There is mild to moderate mitral valve regurgitation. Tricuspid Valve There is no tricuspid valve regurgitation. Mild pulmonary hypertension, estimated pulmonary arterial systolic pressure is 46 mmHg. Pericardium/Pleural There is no pericardial effusion. Inferior Vena Cava Dilated inferior vena cava with <50% collapse upon inspiration consistent with significantly elevated right atrial pressure, 15 mmHg. Aorta The aortic root size at the sinus of Valsalva is normal. Left Ventricular Outflow Tract Name Value Normal LVOT 2D LVOT Diameter 1.9 cm LVOT Doppler
== END 2021-10-03 13:58 | disposition home or self-care (01) ==
LOC: CHSIMG 13:59
PROVIDERS: PCP Nurse Practitioner Family; Visit Provider Internal Medicine Cardiovascular Disease
DX: I50.40 Unspecified combined systolic (congestive) and diastolic (congestive) heart failure (principal)
CPT/HCPCS: 93306

== ENCOUNTER 2022-04-13 12:55 | Outpatient (CLI) | payer OTHER, MEDICARE, SELFPAY ==
--- NOTE | 2022-04-13 13:03 | ECHO_ITS ---
Patient Info Name: Primitivo Allred Age: 66 years : 1955 Gender: Male Ht: 70 in Wt: 320 lbs BSA: 2.75 m2 HR: 69 bpm BP: 115 / 68 mmHg Technical Quality: Poor Exam Date: 04/13/2022 1:28 PM Exam Location: [facility] Patient Status: Outpatient Admit Date: 04/13/2022 Staff Ordering Physician: Romero Echavarria DO Kaiawhina Kohanga Reo: Celeste Pop RDCS Attending Provider: Romero Echavarria DO Referring Physician: Jericho BAJWA; Exam Type: CA echo dop color flow w con Study Info Indications - Unspecified combined systolic ( congestive ) and d... Summary 1. Technically suboptimal study due to poor sonographic images. Definity was not utilized due to no IV access. 2. Left ventricular chamber dimension is moderately enlarged. 3. Left ventricular systolic function is moderately reduced, estimated at 40-45%. 4. The left ventricular diastolic function is indeterminate. 5. Tissue doppler E/e' s not measured. 6. Linear artifact in right ventricle suggestive of catheter(s), pacemaker lead(s), or ICD lead(s). 7. Left atrial chamber dimension is moderately enlarged. 8. Right atrial chamber dimension is moderately enlarged. 9. Linear artifact in the right atrium suggestive of catheter(s), pacemaker lead(s), or ICD lead(s). 10. Bioprosthetic aortic valve. 11. The mitral valve has mildly calcified annulus. 12. Mild pulmonary hypertension, estimated pulmonary arterial systolic pressure is 46 mmHg. 13. Dilated inferior vena cava with >50% collapse upon inspiration consistent with elevated right atrial pressure, 10 mmHg. Left Ventricle Tissue doppler E/e' s not measured. Technically suboptimal study due to poor sonographic images. Definity was not utilized due to no IV access. Left ventricular chamber dimension is moderately enlarged. Left ventricular systolic function is moderately reduced, estimated at 40-45%. The left ventricular diastolic function is indeterminate. Right Ventricle Right ventricular systolic function is normal based on a normal TAPSE 2.2 cm. Linear artifact in right ventricle suggestive of catheter(s), pacemaker lead(s), or ICD lead(s). Right ventricular chamber dimension is not well visualized. Left Atria Left atrial chamber dimension is moderately enlarged. Right Atria Linear artifact in the right atrium suggestive of catheter(s), pacemaker lead(s), or ICD lead(s). Right atrial chamber dimension is moderately enlarged. Aortic Valve Bioprosthetic aortic valve. The bioprosthetic aortic valve is not well visualized. There is no bioprosthetic aortic valve stenosis. There is no regurgitation of the bioprosthetic aortic valve. Pulmonic Valve There is no pulmonic regurgitation. Mitral Valve The mitral valve has mildly calcified annulus. There is no mitral valve stenosis. There is no mitral valve regurgitation. Tricuspid Valve There is no tricuspid valve regurgitation. Mild pulmonary hypertension, estimated pulmonary arterial systolic pressure is 46 mmHg. Pericardium/Pleural There is no pericardial effusion. Inferior Vena Cava Dilated inferior vena cava with >50% collapse upon inspiration consistent with elevated right atrial pressure, 10 mmHg. Aorta The aortic root size at the sinus of Valsalva is normal. Left Ventricular Outflow Tract Name Value Normal LVOT 2D
== END 2022-04-13 12:56 | disposition home or self-care (01) ==
LOC: CHSIMG 12:58
PROVIDERS: PCP Nurse Practitioner Family; Visit Provider Internal Medicine Cardiovascular Disease
DX: I50.40 Unspecified combined systolic (congestive) and diastolic (congestive) heart failure (principal)
CPT/HCPCS: C8929

== ENCOUNTER 2022-06-08 15:27 | Outpatient (CLI) | payer OTHER, MEDICARE, SELFPAY ==
--- NOTE | ~2022-06-08 | XR_ITS ---
EXAMINATION: XR chest 2V DATE: 06/08/2022 16:09 INDICATION: Shortness of breath and cough TECHNIQUE: PA and lateral views of the chest were obtained. COMPARISON: Chest radiograph dated 10/03/2021 FINDINGS: Opacities at the right lung base with blunting at the costophrenic angle and posterior sulci consiste nt with small right pleural effusion. Mild bibasilar opacities which could represent atelectasis, mil d pulmonary edema or less likely pneumonia. Cardiomegaly. Dual lead pacemaker seen with leads project ing over the expected locations of the right atrium and right ventricle. No interval change in 3 epic ardial pacemaker leads, tube position on the lateral wall of the right atrium and one along the infer ior wall of the heart. Median sternotomy and aortic valve repair. IMPRESSION: 1. Mild bibasilar opacities which could represent atelectasis, mild pulmonary edema or pneumonia. 2. Small right pleural effusion. Reviewed, dictated and finalized at location A. IMPRESSION: 1. Mild bibasilar opacities which could represent atelectasis, mild pulmonary e moises or pneumonia. 2. Small right pleural effusion.
[2022-06-08 15:47] LABS: Basophils Absolute Auto 0.05 K/mm3 (0.00-0.10); Basophils Percent Auto 0.6 % (0.0-1.0); Eosinophils Absolute Auto 0.18 K/mm3 (0.02-0.50); Hemoglobin 10.8 g/dL (12.4-15.3); Immature Granulocyte Absolute 0.03 K/mm3 (0.00-0.00); Immature Granulocyte Percent A 0.3 % (0.0-0.0); Lymphocytes Absolute Auto 1.27 K/mm3 (1.10-4.50); Lymphocytes Percent Auto 14.3 % (18.0-42.0); Mean Corpuscular HGB Conc 30.9 g/dL (32.0-36.0); Mean Corpuscular Hemoglobin 29.6 pg (27.0-31.0); Mean Corpuscular Volume 95.9 fL (78.0-102.0); Mean Platelet Volume 11.6 fl (8.7-11.0); Monocytes Absolute Auto 0.73 K/mm3 (0.10-0.90); Monocytes Percent Auto 8.2 % (2.0-11.0); Neutrophils Absolute Auto 6.6 K/mm3 (1.7-7.2); Neutrophils Percent Auto 74.6 % (50.0-70.0); Platelet Count Result 230 K/mm3 (150-420); Red Blood Count 3.65 M/mm3 (4.70-6.10); Red Cell Distribution Width 15.8 % (11.6-14.4); White Blood Count 8.9 K/mm3 (4.8-10.8)
[2022-06-08 16:18] LABS: Albumin Level 3.5 g/dL (3.4-5.0); Alkaline Phosphatase 83 U/L (46-116); Anion Gap 10 mmol/L (8-16); Aspartate Amino Transferase 20 U/L (15-37); Bilirubin,Total 0.6 mg/dL (0.00-1.00); Blood Urea Nitrogen 25 mg/dL (7-18); Calcium 9.1 mg/dL (8.5-10.1); Carbon Dioxide 29 mmol/L (21-32); Chloride 100 mmol/L (98-108); Estimated Glomerular Filt Rate 46; Glucose 135 mg/dL (70-99); NT Pro B Type Natriuretic Pept 2400 pg/mL (0-125); Osmolality Calculated 294 mOsm/kg (285-295); Potassium 3.6 mmol/L (3.5-5.1); Sodium 139 mmol/L (136-145); Total Protein 7.6 g/dL (6.4-8.2)
[2022-06-08 16:28] LABS: Alanine Aminotransferase 17 U/L (16-63)
== END 2022-06-08 15:28 | disposition home or self-care (01) ==
LOC: CHSLAB 15:31
PROVIDERS: PCP Nurse Practitioner Family; Visit Provider Nurse Practitioner Family
DX: R06.02 Shortness of breath (principal); I50.9 Heart failure, unspecified; I50.40 Unspecified combined systolic (congestive) and diastolic (congestive) heart failure
CPT/HCPCS: 36415; 71046; 80053; 83880; 85025

== ENCOUNTER 2022-06-15 10:15 | Emergency (ER) | payer OTHER, MEDICARE, SELFPAY ==
[2022-06-15 10:23] VITALS: BP 152/97; PULSE 69; RESP 16; TEMP 36.4; O2SAT 100
--- NOTE | 2022-06-15 10:30 | PC.NURSE ---
upon arrival patient has kleenex in nose, kleenex removed, bleeding has stopped.
--- NOTE | 2022-06-15 10:38 | ED.EPISTAXIS ---
HPI - Epistaxis General Chief complaint: Epistaxis Stated complaint: bloody nose/weak Time Seen by Provider: 06/15/22 10:28 Source: patient and family Mode of arrival: ambulatory Limitations: no limitations History of Present Illness complaint: epistaxis Location: bilateral nostril Onset (ago): hour(s) Duration: now resolved Context: other anticoagulant use Associated symptoms: sinus pain and weakness Related Data Home Medications Medication Instructions Recorded Confirmed vit C 30 mg-s.jung 250 mg-celery 30 cap PO DAILY 09/19/21 06/15/22 seed 75 mg-grape seed extrt capsule (Tart Jung) Allergies Allergy/AdvReac Type Severity Reaction Status Date / Time aspartame Allergy Severe Unknown Verified 06/15/22 10:26 cyclobenzaprine [Flexeril] Allergy Intermediate Unknown Verified 06/15/22 10:26 Penicillins Allergy Intermediate Unknown Verified 06/15/22 10:26 iohexol Allergy Hives Verified 06/15/22 10:26 [From contrast - CT, X-RAY] Review of Systems Review of Systems: This is a 66-year-old gentleman with a history of CHF the aunt obstructive sleep apnea uses CPAP and had a nosebleed started early this morning packed it with tissue and had a large clot that he extracted, otherwise currently no no bleeding patient with history of CHF says that he felt a little nauseous and and has some weakness but no shortness of breath no chest pain no fever chills. [facility] Past Medical History Medical History Dyslipidemia Essential hypertension Gout Grade III diastolic dysfunction Major depression, recurrent Morbid obesity Obstructive sleep apnea treated with BiPAP Pacemaker Type 2 diabetes mellitus Surgical History Surgical History History of aortic valve replacement (~2014) Hx of cholecystectomy S/P placement of cardiac pacemaker left side Family History Family History Father Kidney disease Mother Diabetes mellitus Heart disease Social History Social History Social History: Surrogate decision maker: Louisa Allred, . Code status: Full code. The patient has 2 children. The patient is retired from [employer] in [place]. The patient is a ex-smoker. He does not use any alcohol marijuana or illicit drugs. Smoking packs per day: 2 Smoking cigarettes per day: 40.0 Years smoked: 30 Smoking pack-years: 60.00 Smoking status: Former smoker Alcohol intake: never Substance use: never Substance use type: does not use Additional living arrangements comments: The patient lives in [place] with his .. Additional occupation/education comments: Retired. Gender identity (if verbalized by the patient): Male Spiritual care concerns: No Exam Const: General: healthy appearing Nutritional Appearance: well nourished HENMT: Head: normal to inspection General nose exam: Epistaxis present ( Erythematous but currently no bleeding) Face and sinus: sinus tenderness Eyes: Conjunctivae: conjunctivae normal EOM: EOMs intact bilaterally Neck: Neck: normal visual inspection Chest: Chest palpation & inspection: normal inspection of the chest Resp: Effort & Inspection: normal respiratory effort Auscultation: clear to auscultation bilaterally Cardio: Rate: regular rate Rhythm: regular rhythm GI: Auscultation: normal bowel sounds Urinary Catheter: Urinary Catheter: patent and draining Back/Spine/Pelvis: Back: no CVA tenderness Skin: General skin exam: normal color Rashes: no rashes Neuro: General: patient oriented x3 and moves all extremities Cranial nerves: Yes Nystagmus not present Speech: normal speech Extrem: General: normal to inspection, no clubbing, cyanosis or edema and no pedal edema Psych: Mental Status: mental status nj
--- NOTE | 2022-06-15 10:39 | ECG_ITS ---
Measurements Intervals [place] Rate: 71 P: NE: 0 QRS: -56 QRSD: 202 T: 70 QT: 499 QTc: 544 Interpretive Statements ELECTRONIC VENTRICULAR PACEMAKER OCCASIONAL PVCS ARE APPROPRIATELY SENSED ABNORMAL RHYTHM ECG COMPARED TO ECG 07/16/2021 14:06:09 NO SIGNIFICANT CHANGES Electronically Signed On 06-15-2022 17:16:53 CDT by Manuel Masterson M.D.
[2022-06-15] MEDS: ONDANSETRON INJ 4 MG/2 ML VIAL IV PUSH (10:53)
[2022-06-15 11:17] LABS: Basophils Absolute Auto 0.06 K/mm3 (0.00-0.10); Basophils Percent Auto 0.6 % (0.0-1.0); Eosinophils Absolute Auto 0.18 K/mm3 (0.02-0.50); Eosinophils Percent Auto 1.8 % (1.0-6.0); Hematocrit 35.9 % (37.0-46.0); Hemoglobin 11.1 g/dL (12.4-15.3); Immature Granulocyte Absolute 0.06 K/mm3 (0.00-0.00); Immature Granulocyte Percent A 0.6 % (0.0-0.0); Lymphocytes Absolute Auto 1.77 K/mm3 (1.10-4.50); Lymphocytes Percent Auto 17.3 % (18.0-42.0); Mean Corpuscular HGB Conc 30.9 g/dL (32.0-36.0); Mean Corpuscular Hemoglobin 29.4 pg (27.0-31.0); Mean Corpuscular Volume 95.2 fL (78.0-102.0); Mean Platelet Volume 11.9 fl (8.7-11.0); Monocytes Absolute Auto 0.85 K/mm3 (0.10-0.90); Monocytes Percent Auto 8.3 % (2.0-11.0); Neutrophils Absolute Auto 7.3 K/mm3 (1.7-7.2); Neutrophils Percent Auto 71.4 % (50.0-70.0); Platelet Count Result 254 K/mm3 (150-420); Red Blood Count 3.77 M/mm3 (4.70-6.10); Red Cell Distribution Width 15.7 % (11.6-14.4); White Blood Count 10.3 K/mm3 (4.8-10.8)
[2022-06-15 11:32] LABS: Partial Thromboplastin Time 30.8 SEC (23.90-30.70)
[2022-06-15 11:42] LABS: Alanine Aminotransferase 18 U/L (16-63); Albumin Level 3.6 g/dL (3.4-5.0); Alkaline Phosphatase 85 U/L (46-116); Anion Gap 6 mmol/L (8-16); Aspartate Amino Transferase 18 U/L (15-37); Bilirubin,Total 0.8 mg/dL (0.00-1.00); Blood Urea Nitrogen 28 mg/dL (7-18); Calcium 9.5 mg/dL (8.5-10.1); Carbon Dioxide 35 mmol/L (21-32); Chloride 100 mmol/L (98-108); Estimated Glomerular Filt Rate 46; Glucose 120 mg/dL (70-99); Lipase 351 U/L (73-393); NT Pro B Type Natriuretic Pept 2063 pg/mL (0-125); Osmolality Calculated 298 mOsm/kg (285-295); Potassium 3.7 mmol/L (3.5-5.1); Sodium 141 mmol/L (136-145); Total Protein 7.6 g/dL (6.4-8.2)
[2022-06-15 12:06] VITALS: BP 137/88; PULSE 69; RESP 16; TEMP 36.4; O2SAT 97
== END 2022-06-15 12:09 | disposition home or self-care (01) ==
PROVIDERS: Emergency Provider Emergency Medicine; PCP Nurse Practitioner Family
DX: R04.0 Epistaxis (principal); E78.5 Hyperlipidemia, unspecified; I10 Essential (primary) hypertension; I50.9 Heart failure, unspecified; E11.9 Type 2 diabetes mellitus without complications; Z87.891 Personal history of nicotine dependence
CPT/HCPCS: 36415; 80053; 83690; 83880; 85025; 85730; 93005; 96374; 99284; J2405

== ENCOUNTER 2022-06-25 12:32 | Outpatient (CLI) | payer OTHER, MEDICARE, SELFPAY ==
[2022-06-25 12:54] LABS: Anion Gap 9 mmol/L (8-16); Blood Urea Nitrogen 27 mg/dL (7-18); Calcium 9.2 mg/dL (8.5-10.1); Carbon Dioxide 30 mmol/L (21-32); Chloride 101 mmol/L (98-108); Estimated Glomerular Filt Rate 49; Glucose 195 mg/dL (70-99); Osmolality Calculated 300 mOsm/kg (285-295); Potassium 3.9 mmol/L (3.5-5.1); Sodium 140 mmol/L (136-145)
== END 2022-06-25 12:33 | disposition home or self-care (01) ==
LOC: CHSLAB 12:34
PROVIDERS: PCP Nurse Practitioner Family; Visit Provider Internal Medicine Cardiovascular Disease
DX: E78.5 Hyperlipidemia, unspecified (principal)
CPT/HCPCS: 36415; 80048

== ENCOUNTER 2022-08-28 11:08 | Emergency (ER) | payer OTHER, MEDICARE, SELFPAY ==
--- NOTE | ~2022-08-28 | XR_ITS ---
EXAMINATION: XR chest 1V portable DATE: 08/28/2022 12:18 INDICATION: Shortness of breath TECHNIQUE: frontal view of the chest was obtained. COMPARISON: Chest radiograph dated 06/08/2022 FINDINGS: Cardiomegaly with pulmonary vascular congestion and mild increased interstitial pattern in the lower lung zones consistent with mild pulmonary edema. Costochondral calcifications project over the lower lung zones. No other airspace opacities, pneumothorax or definitive pleural effusion. Median sternoto my wires and mediastinal surgical clips are seen, likely from prior coronary artery bypass grafting. Dual lead pacemaker seen with leads projecting over the expected locations of the right atrium and ri ght ventricle. There are also retained epicardial pacemaker leads. IMPRESSION: 1. Likely mild congestive heart failure with cardiomegaly, pulmonary vascular congestion and mild pul monary edema in the lower lung zones. Reviewed, dictated and finalized at [facility]. SAW RUNNER IMPRESSION: 1. Likely mild congestive heart failure with cardiomegaly, pulmonary vascular c ongestion and mild pulmonary edema in the lower lung zones.
[2022-08-28 11:23] LABS: Glucose Point of Care 121 mg/dl (65-105)
[2022-08-28 11:25] VITALS: BP 107/56; PULSE 74; RESP 16; TEMP 36.5; O2SAT 100
--- NOTE | 2022-08-28 11:38 | ECG_ITS ---
Measurements Intervals [place] Rate: 69 P: VT: 0 QRS: -78 QRSD: 185 T: 95 QT: 473 QTc: 507 Interpretive Statements ELECTRONIC VENTRICULAR PACEMAKER BASELINE ARTIFACT- I, III, AVL, AVF NO FURTHER INTERPRETATION IS POSSIBLE ATYPICAL ECG COMPARED TO ECG 06/15/2022 10:52:14 NO SIGNIFICANT CHANGES Electronically Signed On 08-28-2022 12:24:45 HARNESS BRUSHER by Romero Echavarria D.O.
--- NOTE | 2022-08-28 11:41 | ED.ARRPALP ---
HPI - Arrhythmia/Palpitations General Chief Complaint: Arrhythmia/Palpitations Stated Complaint: HEART RACING Time Seen by Provider: 08/28/22 11:12 Source: patient, family and RN notes reviewed Mode of arrival: ambulatory Limitations: no limitations History of Present Illness complaint: heart racing Onset (ago): day(s) (3) Duration: now resolved Severity: mild Context: occurred during rest and occurred during exertion Arrhythmia history: pacemaker Associated symptoms: chest pain and shortness of breath Related Data Home Medications Medication Instructions Recorded Confirmed vit C 30 mg-s.jung 250 mg-celery 30 cap PO DAILY 09/19/21 08/28/22 seed 75 mg-grape seed extrt capsule (Tart Jung) Allergies Allergy/AdvReac Type Severity Reaction Status Date / Time aspartame Allergy Severe Unknown Verified 08/28/22 11:23 cyclobenzaprine [Flexeril] Allergy Intermediate Unknown Verified 08/28/22 11:23 Penicillins Allergy Intermediate Unknown Verified 08/28/22 11:23 iohexol Allergy Hives Verified 08/28/22 11:23 [From contrast - CT, X-RAY] Review of Systems Review of Systems: All systems reviewed & are unremarkable except as noted in HPI and below Constitutional: Constitutional: Reports no additional constitutional complaints Eyes: Eyes: Reports no additional eye complaints ENT: Reports system reviewed and no additional complaints, except as documented Cardiovascular: Cardiovascular: Reports no additional cardiovascular complaints and Reports rapid heart rate Respiratory: Respiratory: Reports no additional respiratory complaints and Reports dyspnea Gastrointestinal: Gastrointestinal: Reports no additional gastrointestinal complaints Musculoskeletal: Musculoskeletal: Reports no additional musculoskeletal complaints Integumentary/Breasts: Skin/Breast: Reports system reviewed and no additional complaints, except as docu Neurologic: Reports system reviewed and no additional complaints, except as documented Psychiatric: Psychiatric: Reports no additional psychiatric complaints Endocrine: Endocrine: Reports no additional endocrine complaints Hematologic/Lymphatic: Hematologic/Lymphatic: Reports no additional hematologic/lymphatic complaints Allergic/Immunologic: Allergic/Immunologic: Reports no additional allergic/immunologic complaints [facility] Past Medical History Medical History Dyslipidemia Essential hypertension Gout Grade III diastolic dysfunction Major depression, recurrent Morbid obesity Obstructive sleep apnea treated with BiPAP Pacemaker Rapid heart rate Type 2 diabetes mellitus Surgical History Surgical History History of aortic valve replacement (~2014) Hx of cholecystectomy S/P placement of cardiac pacemaker left side Family History Family History Father Kidney disease Mother Diabetes mellitus Heart disease Social History Social History Social History: Surrogate decision maker: Louisa Allred, . Code status: Full code. The patient has 2 children. The patient is retired from [employer] in [place]. The patient is a ex-smoker. He does not use any alcohol marijuana or illicit drugs. Smoking packs per day: 2 Smoking cigarettes per day: 40.0 Years smoked: 30 Smoking pack-years: 60.00 Smoking status: Former smoker Alcohol intake: never Substance use: never Substance use type: does not use Additional living arrangements comments: The patient lives in [place] with his .. Additional occupation/education comments: Retired. Gender identity (if verbalized by the patient): Male Spiritual care concerns: No Exam Const: General: no acute distress and well nourished Nutritional Appearance: well nourished
[2022-08-28] MEDS: IPRATROPIUM 0.5 MG/ALBUTEROL SULFATE 2.5 MG AMPUL.NEB 3 ML INHALATION (11:54)
[2022-08-28] MEDS: methylPREDNISolone SOD SUCC 125 MG VIAL IV PUSH (11:54)
[2022-08-28 12:05] VITALS: PULSE 69; RESP 16; O2SAT 98
[2022-08-28 12:08] LABS: Base Excess ABG 4.1 mmol/L (0-2); Basophils Absolute Auto 0.05 K/mm3 (0.00-0.10); Basophils Percent Auto 0.6 % (0.0-1.0); Eosinophils Absolute Auto 0.17 K/mm3 (0.02-0.50); Eosinophils Percent Auto 1.9 % (1.0-6.0); HCO3 ABG 28.2 mmol/L (23-29); Hematocrit 21.3 % (37.0-46.0); Immature Granulocyte Absolute 0.03 K/mm3 (0.00-0.00); Immature Granulocyte Percent A 0.3 % (0.0-0.0); Lymphocytes Percent Auto 15.4 % (18.0-42.0); Mean Platelet Volume 11.2 fl (8.7-11.0); Monocytes Absolute Auto 0.96 K/mm3 (0.10-0.90); Monocytes Percent Auto 10.6 % (2.0-11.0); Neutrophils Absolute Auto 6.5 K/mm3 (1.7-7.2); Neutrophils Percent Auto 71.2 % (50.0-70.0); Oxygen Saturation ABG 95.7 % (95-97); Oxyhemoglobin 95.1 % (94-100); PCO2 ABG 39.8 mmHg (35-45); Platelet Count Result 257 K/mm3 (150-420); Red Blood Count 2.13 M/mm3 (4.70-6.10); White Blood Count 9.1 K/mm3 (4.8-10.8); pH ABG 7.47 (7.35-7.45)
[2022-08-28 12:11] VITALS: PULSE 69; RESP 18; O2SAT 99
[2022-08-28 12:12] LABS: Total Hemoglobin 6.4 g/dL (12.0-18.0)
[2022-08-28 12:13] LABS: Device ROOM AIR; Hemoglobin 6.4 g/dL (12.4-15.3); Modified Allen's Test Pass; Site Drawn LEFT RADIAL
[2022-08-28 12:17] LABS: Appearance Urine Clear (Clear); Bilirubin Urine Negative (Negative); Blood Urine 2+ (Negative); Glucose Urine UA Negative (Negative); Ketones Urine Negative (Negative); Leukocyte Esterase Ur Negative (Negative); Nitrate Urine Negative (Negative); Protein Urine Negative (Negative); Specific Grav Ur 1.015 (1.010-1.020); Urobilinogen Urine 0.2 mg/dL (0.2-1.0)
[2022-08-28 12:22] LABS: Add Urine Microscopic? YES; Bacteria Urine Trace /hpf; Color Urine Light Yellow (Yellow); Squamous Epithelial Cell Urine Rare /hpf (Few); WBC Urine None seen /hpf (0-3)
[2022-08-28 12:28] LABS: Lactic Acid Reflex 2.3 mmol/L (0.4-2.0)
[2022-08-28 12:37] LABS: Alanine Aminotransferase 20 U/L (16-63); Albumin Level 3.3 g/dL (3.4-5.0); Alkaline Phosphatase 81 U/L (46-116); Anion Gap 4 mmol/L (8-16); Aspartate Amino Transferase 17 U/L (15-37); Bilirubin,Total 0.3 mg/dL (0.00-1.00); Blood Urea Nitrogen 46 mg/dL (7-18); Carbon Dioxide 33 mmol/L (21-32); Chloride 103 mmol/L (98-108); Estimated CRCL calculation 55 ml/min; Estimated Glomerular Filt Rate 39; Glucose 113 mg/dL (70-99); Osmolality Calculated 302 mOsm/kg (285-295); Potassium 4.4 mmol/L (3.5-5.1); Sodium 140 mmol/L (136-145); Total Protein 7.3 g/dL (6.4-8.2)
[2022-08-28 12:40] LABS: Troponin I 389.8 ng/L (0.00-60.4)
[2022-08-28] MEDS: FUROSEMIDE INJ 40 MG/4 ML VIAL IV PUSH (13:24)
--- NOTE | 2022-08-28 13:28 | PC.NURSE ---
Niko at [facility] calling for nurse to advise of room number for patient
[2022-08-28 13:29] VITALS: BP 104/85; PULSE 69; RESP 16; TEMP 36.3; O2SAT 100
[2022-08-28 13:46] VITALS: BP 119/68; PULSE 75; RESP 18; TEMP 36.4; O2SAT 100
--- NOTE | 2022-08-28 13:50 | PC.NURSE ---
Blood transfusing. Pt tolerating well. Pt given ice chips with ERP permission.
--- NOTE | 2022-08-28 14:04 | PC.NURSE ---
Addendum entered by Rissa Marinelli RN 08/28/22 15:34: ERP states pt can be transferred after 1st unit of blood is completed, and [facility] staff can give the second unit if it is still needed. Rene RN, aware of this. Original Note: Called report to HERBER Malin at [facility]. She is aware that pt is currently receiving blood and will be transferred as soon as the first unit is completed.
[2022-08-28 14:46] VITALS: BP 128/89; PULSE 80; RESP 16; TEMP 36.5; O2SAT 100
[2022-08-28] MEDS: SODIUM CHLORIDE 0.9% IV 250 ML 30 ML IV CONT (14:47)
== END 2022-08-28 15:28 | disposition short-term general hospital (02) ==
PROVIDERS: Emergency Provider Emergency Medicine; PCP Nurse Practitioner Family
DX: I50.9 Heart failure, unspecified (principal)
CPT/HCPCS: 36415; 36430; 36600; 71045; 80053; 81001; 82805; 82948; 83605; 84484; 85025; 86850; 86900; 86901; 86920; 93005; 94640; 96374; 96375; 99285; J1940; J2930; J7050; P9016

== ENCOUNTER 2022-08-28 16:03 | Inpatient (IN) | payer OTHER, MEDICARE, SELFPAY ==
--- NOTE | ~2022-08-28 | US_ITS ---
US renal BI DATE: 08/30/2022 10:01 INDICATION: Acute renal insufficiency TECHNIQUE: Real-time imaging of the kidneys and urinary bladder COMPARISON: None FINDINGS: Right kidney measures approximately 13.3 cm length, left kidney 11.9 cm length. No renal ma ss lesion or hydronephrosis is detected. The renal cortices are relatively thin. The urinary bladder is relatively evacuated and not optimally evaluated. IMPRESSION: Bilateral renal atrophy; no renal mass lesion or hydronephrosis is evident Reviewed, dictated and finalized at [facility]. Reviewed, dictated and finalized at [facility]. X UNIX SYSTEM ADMINISTRATOR
--- NOTE | ~2022-08-28 | XR_ITS ---
EXAMINATION: XR chest 1V portable INDICATION: Chest pain TECHNIQUE: Portable AP chest at 1719 hours COMPARISON: 1224 hours FINDINGS: Cardiomegaly is noted. There is a mild diffuse interstitial pattern with slight improvement . There are minimal airspace opacities of the right lung base. No pleural effusion or pneumothorax. M rosendo sternotomy wires and mediastinal surgical clips are seen, likely from prior coronary artery byp ass grafting. A dual-lead cardiac pacemaker of the left chest wall ends with leads in expected locati ons. IMPRESSION: 1. Cardiomegaly with improving pulmonary edema. 2. Minimal right basilar airspace opacity, consistent with atelectasis versus pneumonia. Reviewed, dictated and finalized at [facility]. ORATE RELATIONS MANAGER IMPRESSION: 1. Cardiomegaly with improving pulmonary edema. 2. Minimal right basilar airspace opacity, consistent with atelectasis versus p neumonia.
[2022-08-28 16:28] VITALS: BMI 47.0
--- NOTE | 2022-08-28 17:10 | PM.IMHP ---
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 The patient has a history of atrial fibrillation and is on Xarelto. The patient stated that he is been more short of breath just walking approximately 7-10 feet. Patient stated that he has been having some chest pain on and off for the last couple days that comes and goes on left side of his chest. The patient stated that he has had a pig valve replacement and that he believes that this is leaking. He also has a pacemaker. Patient EKG shows his pacemaker spikes. His last device check was on 08/14/2022. Chest x-ray today shows likely mild congestive heart failure with cardiomegaly, pulmonary vascular congestion and mild pulmonary edema in the lower lung zones. Patient's hemoglobin was down to 6.4. His stool was guaiac positive. Also the patient had a stool here that was dark brown. The patient was transfused with 1 unit of packed red blood cells at [facility]. His creatinine was 1.7 with a baseline somewhere between 1.45 and 1.52. Lactic acid was found to be 2.3. According to [place] and standards his troponin was 389.1 on a range from 0-60.4. The patient was transferred here from [facility] and is being admitted to observation status on the date of service of 08/28/2022. Review of Systems Review of Systems: See HPI All systems reviewed & are unremarkable except as noted in HPI and below Constitutional: Constitutional: Reports as per HPI and Reports no additional constitutional complaints Eyes: Eyes: Reports as per HPI and Reports no additional eye complaints ENT: Reports system reviewed and no additional complaints, except as documented and Reports Normal hearing present Cardiovascular: Cardiovascular: Reports no additional cardiovascular complaints Respiratory: Respiratory: Reports no additional respiratory complaints and Reports no additional respiratory complaints Gastrointestinal: Gastrointestinal: Reports as per HPI and Reports no additional gastrointestinal complaints Musculoskeletal: Musculoskeletal: Reports no additional musculoskeletal complaints Integumentary/Breasts: Skin/Breast: Reports system reviewed and no additional complaints, except as docu and Reports as per HPI Neurologic: Reports system reviewed and no additional complaints, except as documented, Reports as per HPI and Reports Normal hearing present Psychiatric: Psychiatric: Reports no additional psychiatric complaints and Reports as per HPI Endocrine: Endocrine: Reports no additional endocrine complaints Hematologic/Lymphatic: Hematologic/Lymphatic: Reports no additional hematologic/lymphatic complaints Allergic/Immunologic: Allergic/Immunologic: Reports no additional allergic/immunologic complaints [facility] Past Medical History Medical History (Updated 08/28/22 @ 17:42 by Miryam Rincon NP) COVID-19 Dyslipidemia Essential hypertension Gout Grade III diastolic dysfunction Major depression, recurrent Morbid obesity Obstructive sleep apnea treated with BiPAP Pacemaker Rapid heart rate Type 2 diabetes mellitus Surgical History Surgical History History of aortic valve replacement (~2014) Hx of cholecystectomy S/P placement of cardiac pacemaker left side Family History Family History Father Kidney disease Mother Diabetes mellitus Heart disease Social History Social History Social History: Surrogate decision maker: Louisa Allred, . Code status: Full code. The patient has 2 children. The patient is retired from [employer] in [place]. The patient is a ex-smoker. He does not use any alcohol marijuana or illicit drugs. Smoking packs per day:
[2022-08-28] MEDS: SODIUM CHLORIDE 0.45% 1,000 ML 75 ML IV CONT (18:14)
[2022-08-28 19:08] LABS: Basophils Percent Auto 0.2 % (0.2-1.2); Hematocrit 23.3 % (42.0-52.0); Immature Granulocyte Absolute 0.03 K/mm3 (0.00-0.031); Immature Granulocyte Percent A 0.4 % (0-0.5); Lymphocytes Percent Auto 5.9 % (18.3-44.2); Mean Corpuscular HGB Conc 30.5 g/dl (32-36); Mean Corpuscular Hemoglobin 29.8 pg (26-34); Mean Corpuscular Volume 97.9 fl (80-100); Mean Platelet Volume 12.1 fl (7.4-10.4); Monocytes Absolute Auto 0.1 K/mm3 (0.1-0.6); Monocytes Percent Auto 0.6 % (2.6-8.5); Neutrophils Absolute Auto 7.9 K/mm3 (1.3-6.7); Neutrophils Percent Auto 92.9 % (45.5-73.1); Platelet Count Result 241 k/mm3 (150-375); Red Blood Count 2.38 M/mm3 (4.6-6.20); Red Cell Distribution Width 16.8 % (11.5-14.5); White Blood Count 8.5 K/mm3 (4.5-10.0)
[2022-08-28 19:16] VITALS: BP 117/53; PULSE 80; RESP 20; TEMP 36.3; O2SAT 100
[2022-08-28 19:21] LABS: Hemoglobin 7.1 g/dL (14.0-18.0)
[2022-08-28 19:22] LABS: Lactic Acid Reflex 3.3 mmol/L (0.7-2.0); Magnesium 2.5 mg/dL (1.6-2.3)
[2022-08-28 19:40] LABS: Hemoglobin A1C 5.4 % (<5.7)
[2022-08-28 19:45] LABS: Troponin I 0.042 ng/mL (0.000-0.034)
[2022-08-28 20:00] VITALS: BP 122/56; PULSE 73; PULSE 75; RESP 20; TEMP 36.3; O2SAT 93
[2022-08-28 20:57] LABS: Glucose Point of Care 183 mg/dl (65-105)
[2022-08-28 21:42] LABS: Hematocrit 23.3 % (42.0-52.0); Hemoglobin 7.2 g/dL (14.0-18.0)
[2022-08-28 21:50] VITALS: PULSE 82
[2022-08-28] MEDS: ATORVASTATIN 10 MG TABLET PO (21:50)
[2022-08-28] MEDS: carvediloL 6.25 MG TABLET PO (21:50)
[2022-08-28] MEDS: PANTOPRAZOLE SODIUM IV 40 MG VIAL IV PUSH (21:50)
[2022-08-28 22:05] LABS: Reflex Lactic Acid Yes or No Add Lactic
[2022-08-28 22:30] LABS: Lactic Acid 2.6 mmol/L (0.7-2.0)
[2022-08-28 23:24] LABS: IFOB Positive Control Positive; Immunochemical Fecal Occult Bl Positive (N)
[2022-08-28 23:52] VITALS: PULSE 96; O2SAT 96
[2022-08-29] VITALS (20 sets, daily range): BP systolic 101–122; BP diastolic 46–90; PULSE 69–109; RESP 12–22; TEMP 35.8–36.7; O2SAT 93–100
[2022-08-29 02:55] LABS: Appearance Urine Clear (Clear); Bilirubin Urine Negative (Negative); Blood Urine 1+ (Negative); Color Urine Yellow (Yellow); Glucose Urine UA Negative (Negative); Ketones Urine Negative (Negative); Leukocyte Esterase Ur Trace LEU/UL (Negative); Nitrate Urine Negative (Negative); Protein Urine Negative (Negative); Specific Grav Ur 1.015 (1.001-1.035); Urobilinogen Urine 0.2 mg/dL (<2.0)
[2022-08-29 03:04] LABS: Mucus Urine Rare /lpf; Squamous Epithelial Cell Urine Few /hpf (Few); WBC Urine 0-3 /hpf
[2022-08-29 03:05] LABS: Add Urine Microscopic? YES
[2022-08-29] MEDS: SODIUM CHLORIDE 0.9% IV 250 ML 30 ML IV CONT (05:15)
[2022-08-29] MEDS: FUROSEMIDE INJ 40 MG/4 ML VIAL 20 MG IV PUSH (05:17)
[2022-08-29] MEDS: TUBING, BLOOD PLUM PUMP TUBING 1 EACH XX (05:17)
[2022-08-29] MEDS: carvediloL 6.25 MG TABLET PO (05:18)
[2022-08-29 05:27] LABS: Basophils Percent Auto 0.1 % (0.2-1.2); Hematocrit 23.7 % (42.0-52.0); Hemoglobin 7.2 g/dL (14.0-18.0); Immature Granulocyte Absolute 0.05 K/mm3 (0.00-0.031); Immature Granulocyte Percent A 0.6 % (0-0.5); Lymphocytes Absolute Auto 0.79 K/mm3 (0.9-3.2); Lymphocytes Percent Auto 9.3 % (18.3-44.2); Mean Corpuscular HGB Conc 30.4 g/dl (32-36); Mean Corpuscular Hemoglobin 29.1 pg (26-34); Mean Platelet Volume 10.9 fl (7.4-10.4); Monocytes Absolute Auto 0.5 K/mm3 (0.1-0.6); Monocytes Percent Auto 5.7 % (2.6-8.5); Neutrophils Absolute Auto 7.2 K/mm3 (1.3-6.7); Neutrophils Percent Auto 84.3 % (45.5-73.1); Platelet Count Result 243 k/mm3 (150-375); Red Blood Count 2.47 M/mm3 (4.6-6.20); Red Cell Distribution Width 16.2 % (11.5-14.5); White Blood Count 8.5 K/mm3 (4.5-10.0)
[2022-08-29 05:38] LABS: Lactic Acid Reflex 1.6 mmol/L (0.7-2.0)
[2022-08-29 05:41] LABS: Alanine Aminotransferase 20 U/L (6-50); Albumin Level 4.2 g/dL (3.5-5.1); Alkaline Phosphatase 56 U/L (38-126); Anion Gap 14 mmol/L (8-16); Aspartate Amino Transferase 28 U/L (17-59); Bilirubin,Total 0.5 mg/dL (0.2-1.3); Blood Urea Nitrogen 45 mg/dL (9-20); Calcium 8.7 mg/dL (8.4-10.2); Carbon Dioxide 28 mmol/L (22-30); Chloride 96 mmol/L (98-107); Estimated CRCL calculation 63 ml/min; Estimated Glomerular Filt Rate 47; Glucose 141 mg/dL (65-110); Magnesium 2.6 mg/dL (1.6-2.3); Potassium 4.4 mmol/L (3.4-5.0); Sodium 138 mmol/L (137-145)
[2022-08-29 08:09] LABS: Glucose Point of Care 147 mg/dl (65-105)
[2022-08-29] MEDS: PANTOPRAZOLE SODIUM IV 40 MG VIAL IV PUSH ×2 (09:09→20:12)
[2022-08-29] MEDS: BUMETANIDE 1 MG TABLET 2 MG PO (09:09)
[2022-08-29] MEDS: SERTRALINE HCL 50 MG TABLET 100 MG PO (09:09)
[2022-08-29] MEDS: metFORMIN HCL 500 MG TABLET 1000 MG PO (09:09)
[2022-08-29] MEDS: MAGNESIUM OXIDE 400 MG TABLET PO (09:09)
[2022-08-29] MEDS: SODIUM CHLORIDE 0.45% 1,000 ML 75 ML IV CONT (10:06)
[2022-08-29 11:37] LABS: Glucose Point of Care 121 mg/dl (65-105)
--- NOTE | 2022-08-29 14:58 | WPDGICN ---
Assessment and Plan Assessment and plan (1) Acute blood loss anemia: Code(s): D62 - Acute posthemorrhagic anemia Status: Acute Assessment and Plan: better after blood transfusion he has been on xarelto which is on hold now he will need egd and colonoscopy to assess source of bleeding, we can do on Wednesday iv protonix ok to resume diet, monitor for signs of bleeding (2) Occult blood in stools: Code(s): R19.5 - Other fecal abnormalities Status: Acute Assessment and Plan: xarelto on hold scopes wednesday (3) Combined systolic and diastolic heart failure: Code(s): I50.40 - Unspecified combined systolic (congestive) and diastolic (congestive) heart failure Status: Acute Assessment and Plan: by primary (4) Hypertension associated with diabetes: Code(s): E11.59 - Type 2 diabetes mellitus with other circulatory complications; I10 - Essential (primary) hypertension Status: Acute (5) Obesity, morbid, BMI 50 or higher: Code(s): E66.01 - Morbid (severe) obesity due to excess calories Status: Acute (6) Blood thinned due to long-term anticoagulant use: Code(s): Z79.01 - MCC (current) use of anticoagulants Status: Acute GI Consult Note Consult date/time: 08/29/22 14:58 Reason for consult: acute blood loss anemia, fOBT + HPI: Primitivo Allred is a 67 year old male with history of atrial fibrillation on Xarelto s/p pacemaker, DM who initially went to [facility] because last few days noted fatigue, palpitations and dyspnea on exertion. Chest x-ray shows likely mild congestive heart failure with cardiomegaly, pulmonary vascular congestion and mild pulmonary edema in the lower lung zones.? Patient's hemoglobin was down to 6.4 with stool was guaiac positive, had stool dark brown.?He was transfused blood transfusion and transfer here, started on iv protonix, no nausea, no rectal bleeding. No previous colonoscopy. Review of Systems Constitutional: Constitutional: Reports fatigue and Reports lethargy Eyes: Eyes: Denies blurry vision ENT: Reports Normal hearing present Cardiovascular: Cardiovascular: Reports lightheadedness Respiratory: Respiratory: Reports dyspnea on exertion Gastrointestinal: Gastrointestinal: Denies abdominal pain Genitourinary: Genitourinary: Denies dysuria Musculoskeletal: Musculoskeletal: Denies arthralgias Integumentary/Breasts: Skin/Breast: Denies rash Neurologic: Denies Abnormal speech present Psychiatric: Psychiatric: Denies anxiety PMFSH Past Medical History Medical History (Updated 08/29/22 @ 15:03 by Aditya Connolly MD) Acute blood loss anemia Blood thinned due to long-term anticoagulant use COVID-19 Dyslipidemia Essential hypertension Gout Grade III diastolic dysfunction Major depression, recurrent Morbid obesity Obstructive sleep apnea treated with BiPAP Occult blood in stools Pacemaker Rapid heart rate Type 2 diabetes mellitus Surgical History Surgical History History of aortic valve replacement (~2014) Hx of cholecystectomy S/P placement of cardiac pacemaker left side Family History Family History Father Kidney disease Mother Diabetes mellitus Heart disease Social History Social History Social History: Surrogate decision maker: Louisa Allred, . Code status: Full code. The patient has 2 children. The patient is retired from [employer] in [place]. The patient is a ex-smoker. He does not use any alcohol marijuana or illicit drugs. Smoking packs per day: 2 Smoking cigarettes per day: 40.0 Years smoked: 30 Smoking pack-years: 60.00 Smoking status: Never smoker Alcohol intake: never Substance use: never Substance use type: does not use Lack of Transportatio
[2022-08-29 15:22] LABS: Hematocrit 25.9 % (42.0-52.0)
[2022-08-29 16:32] LABS: Glucose Point of Care 115 mg/dl (65-105)
--- NOTE | 2022-08-29 17:29 | PM.IMPN ---
Progress Note: A&P Assessment and Plan (1) GI bleed: Code(s): K92.2 - Gastrointestinal hemorrhage, unspecified Status: Acute Assessment and Plan: Hemoglobin last September was 12.4. Hemoglobin in May was 10.8-11.1 range. Patient presents with chest pain shortness of breath and found to have a hemoglobin of 6.4. Stools guaiac positive. He has been having dark stools. Protonix started. He has been transfused 2 units of packed red blood cells and hemoglobin has climbed 8.0 this afternoon. Symptoms have improved. His Xarelto is on hold. GI has been consulted. Plan to proceed with EGD and colonoscopy on Wednesday if patient remains stable. Continue to monitor hemoglobin closely. (2) Acute blood loss anemia: Code(s): D62 - Acute posthemorrhagic anemia Status: Acute Assessment and Plan: As above. Monitor HH closely. (3) Elevated troponin: Code(s): R77.8 - Other specified abnormalities of plasma proteins Status: Acute Assessment and Plan: Troponin mildly elevated at 0.04 felt related to severe anemia and/or renal insufficiency. Continue Coreg, statin. Holding antiplt and anticoagulation. Repeat Trop to trend (4) Combined systolic and diastolic heart failure: Code(s): I50.40 - Unspecified combined systolic (congestive) and diastolic (congestive) heart failure Status: Inactive Assessment and Plan: CXR showing likely mild congestive heart failure with cardiomegaly, pulmonary vascular congestion and mild pulmonary edema in the lower lung zones.Echo 04/13/22 with EF40-45% and indeterminate diastolic function. Lasix IV given after transfusion. Repeat CXR showing improvement. Not on O2 and appears euvolemic. Suspect acute on chronic diastolic and systolic CHF related to severe anemia. Bumex and Coreg continued. Follow (5) Renal insufficiency: Code(s): N28.9 - Disorder of kidney and ureter, unspecified Status: Acute Assessment and Plan: Creatinine was normal last year but was 1.5 in May. Creatinine 1.75 on admission at the outside hospital and improved here 1.5. Could be related to over-diuresis or possibly ATN from the anemia. He is on Bumex, spironolactone and lisinopril. Bumex has been continued but lisinopril and spironolactone on hold. Will check renal ultrasound. Will stop IV fluids given recent treatment for heart failure. Continue to follow. (6) PAF (paroxysmal atrial fibrillation): Code(s): I48.0 - Paroxysmal atrial fibrillation Status: Acute Assessment and Plan: Intermittent paced rhythm with underlying AFib. Xarelto on hold. Continue Coreg. Monitor on tele. (7) Essential hypertension: Code(s): I10 - Essential (primary) hypertension Status: Acute Assessment and Plan: Patient's blood pressure was reviewed on 08/29/22 Blood pressure remains well controlled. Will continue current medications. (8) ALEX (obstructive sleep apnea): Code(s): G47.33 - Obstructive sleep apnea (adult) (pediatric) Status: Acute Assessment and Plan: Stable. Compliant with treatment. Continue with home settings for a CPAP. (9) Type 2 diabetes mellitus: Code(s): E11.9 - Type 2 diabetes mellitus without complications Status: Chronic Assessment and Plan: A1c 5.4. The patient's blood glucose was reviewed on 08/29 Glucose remains well controlled. Continue AccuCheks covering with sliding scale. Hypoglycemia protocol available as needed. Hold metformin (10) Hyperlipidemia associated with type 2 diabetes mellitus: Code(s): E11.69 - Type 2 diabetes mellitus with other specified complication; E78.5 - Hyperlipidemia, unspecified Status: Acute Assessment and Plan: LFTs okay. Continue with atorvastatin. (11) Gout: Code(s): M10.9 - Gout, unspecified Status: Acute Assessment and Plan: Stable Continue with allopurin
[2022-08-29] MEDS: ATORVASTATIN 10 MG TABLET PO (20:13)
[2022-08-29 20:21] LABS: Glucose Point of Care 104 mg/dl (65-105)
[2022-08-29 23:25] LABS: Hemoglobin 7.4 g/dL (14.0-18.0)
[2022-08-29 23:59] LABS: Troponin I 0.047 ng/mL (0.000-0.034)
[2022-08-30] VITALS (14 sets, daily range): BP systolic 111–135; BP diastolic 52–86; PULSE 69–97; RESP 16–24; TEMP 36.1–36.9; O2SAT 98–100
--- NOTE | 2022-08-30 02:27 | PC.NURSE ---
Addendum entered by Lorri De Guzman RN 08/30/22 02:29: Care of patient transferred to Carissa Baker RN at 0145 on 08/30/22. Original Note: Care of patient transferred to Carissa Baker RN
[2022-08-30 05:03] LABS: Basophils Absolute Auto 0.1 K/mm3 (0.0-0.1); Basophils Percent Auto 0.5 % (0.2-1.2); Eosinophils Absolute Auto 0.1 K/mm3 (0-0.3); Eosinophils Percent Auto 1.4 % (0-4.4); Hematocrit 24.3 % (42.0-52.0); Hemoglobin 7.5 g/dL (14.0-18.0); Immature Granulocyte Absolute 0.03 K/mm3 (0.00-0.031); Immature Granulocyte Percent A 0.3 % (0-0.5); Lymphocytes Absolute Auto 1.91 K/mm3 (0.9-3.2); Lymphocytes Percent Auto 18.9 % (18.3-44.2); Mean Corpuscular HGB Conc 30.9 g/dl (32-36); Mean Corpuscular Hemoglobin 29.1 pg (26-34); Mean Corpuscular Volume 94.2 fl (80-100); Mean Platelet Volume 11.7 fl (7.4-10.4); Monocytes Percent Auto 9.7 % (2.6-8.5); Neutrophils Percent Auto 69.2 % (45.5-73.1); Platelet Count Result 238 k/mm3 (150-375); Red Blood Count 2.58 M/mm3 (4.6-6.20); Red Cell Distribution Width 16.3 % (11.5-14.5); White Blood Count 10.1 K/mm3 (4.5-10.0)
[2022-08-30 05:12] LABS: Anion Gap 11 mmol/L (8-16); Blood Urea Nitrogen 42 mg/dL (9-20); Calcium 8.4 mg/dL (8.4-10.2); Carbon Dioxide 25 mmol/L (22-30); Chloride 99 mmol/L (98-107); Estimated CRCL calculation 60 ml/min; Estimated Glomerular Filt Rate 43; Glucose 104 mg/dL (65-110); Phosphorus 4.9 mg/dL (2.5-4.5); Potassium 3.9 mmol/L (3.4-5.0); Sodium 135 mmol/L (137-145)
[2022-08-30] MEDS: carvediloL 6.25 MG TABLET PO ×2 (06:34→18:52)
[2022-08-30 08:36] LABS: Glucose Point of Care 108 mg/dl (65-105)
[2022-08-30] MEDS: MAGNESIUM OXIDE 400 MG TABLET PO ×2 (08:49→18:52)
[2022-08-30] MEDS: BUMETANIDE 1 MG TABLET 2 MG PO ×2 (08:49→18:52)
[2022-08-30] MEDS: SERTRALINE HCL 50 MG TABLET 100 MG PO (08:49)
[2022-08-30] MEDS: PANTOPRAZOLE SODIUM IV 40 MG VIAL IV PUSH ×2 (08:50→20:03)
[2022-08-30 12:24] LABS: Glucose Point of Care 133 mg/dl (65-105)
--- NOTE | 2022-08-30 13:33 | PM.IMPN ---
Progress Note: A&P Assessment and Plan (1) GI bleed: Code(s): K92.2 - Gastrointestinal hemorrhage, unspecified Status: Acute Assessment and Plan: Hemoglobin last September was 12.4. Hemoglobin in May was 10.8-11.1 range. Patient presents with chest pain, SOB and found to have a hemoglobin of 6.4. Stools guaiac positive. He has been having dark stools. Protonix started. He has been transfused 2 units of PRBC and hemoglobin has climbed to 7-8 range. Symptoms have improved. His Xarelto is on hold. GI has been consulted. Plan to proceed with EGD and colonoscopy tomorrow. Continue to monitor hemoglobin closely. (2) Acute blood loss anemia: Code(s): D62 - Acute posthemorrhagic anemia Status: Acute Assessment and Plan: As above. Monitor HH closely. (3) Elevated troponin: Code(s): R77.8 - Other specified abnormalities of plasma proteins Status: Acute Assessment and Plan: Troponin mildly elevated but flat at 0.04 felt related to severe anemia and/or renal insufficiency. Continue Coreg, statin. Holding antiplt and anticoagulation. Not likely to be acute coronary ischemia. (4) Combined systolic and diastolic heart failure: Code(s): I50.40 - Unspecified combined systolic (congestive) and diastolic (congestive) heart failure Status: Inactive Assessment and Plan: CXR showing likely mild congestive heart failure with cardiomegaly, pulmonary vascular congestion and mild pulmonary edema in the lower lung zones.Echo 04/13/22 with EF40-45% and indeterminate diastolic function. Lasix IV given after transfusion. Repeat CXR showing improvement. Not on O2 and appears euvolemic. Suspect acute on chronic diastolic and systolic CHF related to severe anemia. Continue Bumex and Coreg. Follow. He does have MARIE so will plan to check home O2 at discharge (5) Renal insufficiency: Code(s): N28.9 - Disorder of kidney and ureter, unspecified Status: Acute Assessment and Plan: Creatinine was normal last year but was 1.5 in May. Creatinine 1.75 on admission at the outside hospital and slightly better now. Could be related to over-diuresis or possibly ATN from the anemia. He is on Bumex, spironolactone and lisinopril. Bumex has been continued but lisinopril and spironolactone remain on hold. Renal ultrasound pending. Continue to follow. (6) PAF (paroxysmal atrial fibrillation): Code(s): I48.0 - Paroxysmal atrial fibrillation Status: Acute Assessment and Plan: Intermittent paced rhythm with underlying AFib. Xarelto on hold. Continue Coreg. Monitor on tele. Resume Xarelto when able. (7) Essential hypertension: Code(s): I10 - Essential (primary) hypertension Status: Acute Assessment and Plan: Patient's blood pressure was reviewed on 08/30 Blood pressure remains well controlled. Will continue current medications. (8) ALEX (obstructive sleep apnea): Code(s): G47.33 - Obstructive sleep apnea (adult) (pediatric) Status: Acute Assessment and Plan: Stable. Compliant with treatment. Continue with home settings for a CPAP. (9) Type 2 diabetes mellitus: Code(s): E11.9 - Type 2 diabetes mellitus without complications Status: Chronic Assessment and Plan: A1c 5.4. The patient's blood glucose was reviewed on 08/30 Glucose remains well controlled. Continue AccuCheks covering with sliding scale. Hypoglycemia protocol available as needed. Holding metformin (10) Hyperlipidemia associated with type 2 diabetes mellitus: Code(s): E11.69 - Type 2 diabetes mellitus with other specified complication; E78.5 - Hyperlipidemia, unspecified Status: Acute Assessment and Plan: LFTs okay. Continue with atorvastatin. (11) Gout: Code(s): M10.9 - Gout, unspecified Status: Acute Assessment and Plan: Stable Continue to follow. (not actual
--- NOTE | 2022-08-30 13:39 | WPDGIPROGNO ---
Progress Note: A&P Assessment and Plan (1) Acute blood loss anemia: Code(s): D62 - Acute posthemorrhagic anemia Status: Acute Assessment and Plan: no overt gib but required blood transfusion and he was on blood thinner egd and colonoscopy tomorrow (2) Occult blood in stools: Code(s): R19.5 - Other fecal abnormalities Status: Acute Assessment and Plan: scopes tomorrow (3) Blood thinned due to long-term anticoagulant use: Code(s): Z79.01 - [facility]DC (current) use of anticoagulants Status: Acute Assessment and Plan: on hold (4) Renal insufficiency: Code(s): N28.9 - Disorder of kidney and ureter, unspecified Status: Acute (5) PAF (paroxysmal atrial fibrillation): Code(s): I48.0 - Paroxysmal atrial fibrillation Status: Acute Subjective Date/time seen: 08/30/22 13:39 Interval history: no new issues, comfortable Review of Systems Review of Systems: All systems reviewed & are unremarkable except as noted in HPI and below Exam Const: General: no acute distress and well nourished Nutritional Appearance: well nourished Orientation/consciousness: patient oriented x3 HENMT: Head: normal to inspection Face/Nose/Sinus: Normal external nose present, Normal nares present and normal facial exam Eyes: Pupils: Equal, round and reactive pupils present Neck: Neck: normal visual inspection Chest: Chest palpation & inspection: normal inspection of the chest Resp: Effort & Inspection: normal respiratory effort Auscultation: clear to auscultation bilaterally Cardio: Rate: regular rate GI: GI Palp: Yes Soft to palpation and No Tenderness to palpation present (GI) Auscultation: normal bowel sounds : General: Yes no CVA tenderness Back/Spine/Pelvis: Back: no CVA tenderness Skin: Rashes: no rashes Other: pallor Neuro: General: patient oriented x3, moves all extremities, no meningeal signs and no focal motor deficits Speech: normal speech Extrem: General: normal to inspection and no pedal edema Psych: Mental Status: mental status grossly normal Affect: normal affect Attitude: cooperative Objective Data Vital Signs Vital Signs: Vital Signs - 24 hr 08/29/22 14:00 08/29/22 16:00 08/29/22 16:00 Temperature 98 F Pulse Rate 69 69 69 Respiratory Rate 12 Blood Pressure 120/64 Pulse Oximetry 100 Oxygen Delivery 08/29/22 16:00 08/29/22 18:00 08/29/22 19:00 Temperature Pulse Rate 69 69 Respiratory Rate Blood Pressure Pulse Oximetry Oxygen Delivery Room Air 08/29/22 20:00 08/29/22 20:00 08/29/22 20:00 Temperature 97.3 F L Pulse Rate 69 69 Respiratory Rate 22 H Blood Pressure 118/90 Pulse Oximetry 98 98 Oxygen Delivery Room Air 08/29/22 23:57 08/29/22 23:10 08/29/22 22:00 Temperature 98.1 F Pulse Rate 109 H 78 69 Respiratory Rate 22 H Blood Pressure 122/85 Pulse Oximetry 98 97 Oxygen Delivery Autopap 08/30/22 00:00 08/30/22 00:00 08/30/22 02:00 Temperature Pulse Rate 75 90 Respiratory Rate Blood Pressure Pulse Oximetry 98 Oxygen Delivery Room Air 08/30/22 04:00 08/30/22 04:00 08/30/22 06:00 Temperature 97.9 F Pulse Rate 69 69 69 Respiratory Rate 20 Blood Pressure 111/67 Pulse Oximetry 100 Oxygen Delivery 08/30/22 04:00 08/30/22 08:00 08/30/22 08:00 Temperature 97.8 F Pulse Rate 69 Respiratory Rate 16 Blood Pressure 116/63 Pulse Oximetry 100 Oxygen Delivery Room Air Room Air Intake/Output Intake/Output: Intake & Output 08/27/22 08/28/22 08/29/22 08/30/22 23:59 23:59 23:59 23:59 Intake Total 200 2590 Output Total 350 2300 Balance -150 290 Meds/Results Medications: Active Medications Generic Name Dose Route Start Last Admin Trade Name Freq PRN Reason Stop Dose Admin Albuterol 2 puff 08/28/22 17:56 Albuterol Sulfate (*Sp) Aerosol 1 Puff INHALATION Q6H PRN
[2022-08-30 15:57] LABS: Hematocrit 25.3 % (42.0-52.0); Hemoglobin 7.8 g/dL (14.0-18.0)
[2022-08-30 16:54] LABS: Glucose Point of Care 103 mg/dl (65-105)
[2022-08-30] MEDS: BISACODYL 5 MG TABLET EC PO (18:51)
[2022-08-30] MEDS: polyethylene glycoL 3350 238 GM BOTTLE PO (20:03)
[2022-08-30] MEDS: ATORVASTATIN 10 MG TABLET PO (20:03)
[2022-08-30 20:08] LABS: Glucose Point of Care 120 mg/dl (65-105)
[2022-08-31] VITALS (13 sets, daily range): BP systolic 126–152; BP diastolic 48–96; PULSE 52–80; RESP 16–22; TEMP 36.1–36.7; O2SAT 94–100
[2022-08-31 05:05] LABS: Hematocrit 25.5 % (42.0-52.0); Hemoglobin 7.9 g/dL (14.0-18.0); Mean Corpuscular Volume 93.8 fl (80-100); Mean Platelet Volume 11.5 fl (7.4-10.4); Platelet Count Result 245 k/mm3 (150-375); Red Blood Count 2.72 M/mm3 (4.6-6.20); Red Cell Distribution Width 15.4 % (11.5-14.5); White Blood Count 10.2 K/mm3 (4.5-10.0)
[2022-08-31 05:21] LABS: Anion Gap 10 mmol/L (8-16); Blood Urea Nitrogen 39 mg/dL (9-20); Calcium 9.1 mg/dL (8.4-10.2); Carbon Dioxide 28 mmol/L (22-30); Chloride 99 mmol/L (98-107); Estimated CRCL calculation 56 ml/min; Estimated Glomerular Filt Rate 40; Glucose 132 mg/dL (65-110); Magnesium 2.7 mg/dL (1.6-2.3); Potassium 4.3 mmol/L (3.4-5.0); Sodium 137 mmol/L (137-145)
--- NOTE | 2022-08-31 06:09 | PC.NURSE ---
Tolerated bowel prep with Miralax well. States stools are running clear. Consent for EGD/Colonoscopy on the front of the chart.
[2022-08-31 07:55] LABS: Glucose Point of Care 116 mg/dl (65-105)
[2022-08-31] MEDS: SERTRALINE HCL 50 MG TABLET 100 MG PO (11:04)
[2022-08-31] MEDS: PANTOPRAZOLE SODIUM IV 40 MG VIAL IV PUSH (11:04)
[2022-08-31] MEDS: BUMETANIDE 1 MG TABLET 2 MG PO ×2 (11:05→17:26)
[2022-08-31] MEDS: allopurinoL 300 MG TABLET PO (11:05)
[2022-08-31 11:45] LABS: Glucose Point of Care 74 mg/dl (65-105)
[2022-08-31 13:51] LABS: Glucose Point of Care 100 mg/dl (65-105)
[2022-08-31 13:55] LABS: Glucose Point of Care 111 mg/dl (65-105)
[2022-08-31] MEDS: LACTATED RINGERS 1,000 ML 150 ML IV CONT (13:56)
--- NOTE | 2022-08-31 14:15 | WPDANESEPPF ---
Anes - Initial Pre Proc Eval Procedure: Operation Date: 08/31/22 16:15 Proposed Procedures p Esophagogastroduodenoscopy & Colonoscopy - Aditya Connolly MD Date/Time: 08/31/22 14:15 Surgeon: Priscilla Purvis DO Pre Op Diagnosis: Chest Pain with elevated troponin Patient Data Age: 67 Gender: M Height: 1.78 m Weight: 150.1 kg Last Vital Signs Temp 97.5 F L 08/31/22 13:55 Pulse 52 L 08/31/22 13:55 Resp 18 08/31/22 13:55 BP 131/87 08/31/22 13:55 Pulse Ox 94 08/31/22 13:55 O2 Del Method Room Air 08/31/22 13:55 Allergies Allergy/AdvReac Type Severity Reaction Status Date / Time aspartame Allergy Severe Unknown Verified 08/28/22 11:23 cyclobenzaprine [Flexeril] Allergy Intermediate Unknown Verified 08/28/22 11:23 Penicillins Allergy Intermediate Unknown Verified 08/28/22 11:23 iohexol Allergy Hives Verified 08/28/22 11:23 [From contrast - CT, X-RAY] Home Medications Medication Instructions Recorded Confirmed Type magnesium oxide 400 mg (241.3 mg 400 mg PO BID #60 tabs 07/04/21 08/28/22 Rx magnesium) tablet aspirin 81 mg chewable tablet 81 mg PO DAILY@0800 #30 tabs 07/17/21 08/28/22 Rx (Children's Aspirin) albuterol sulfate 90 mcg/actuation 2 puff inhalation Q6H PRN 03/17/22 08/28/22 Rx aerosol inhaler shortness of breath or wheezing #18 grams carvedilol 6.25 mg tablet (Coreg) 6.25 mg PO Q12H #60 tabs 04/06/22 08/28/22 Rx sertraline 100 mg tablet 100 mg PO DAILY #30 tabs 06/03/22 08/28/22 Rx spironolactone 25 mg tablet 12.5 mg PO DAILY #15 tabs 06/09/22 08/28/22 Rx metformin 1,000 mg tablet 1,000 mg PO BID #180 tabs 06/29/22 08/28/22 Rx rivaroxaban 20 mg tablet (Xarelto) 20 mg PO DAILY #90 tabs 07/03/22 08/28/22 Rx bumetanide 2 mg tablet 2 mg PO BID #60 tabs 07/31/22 08/28/22 Rx lisinopril 20 mg tablet 20 mg PO DAILY #30 tabs 07/31/22 08/28/22 Rx atorvastatin 10 mg tablet 10 mg PO HS 08/28/22 08/28/22 History allopurinol 300 mg tablet 300 mg PO DAILY 08/30/22 08/30/22 History cholecalciferol (vitamin D3) 125 125 mcg PO DAILY 08/30/22 08/30/22 History mcg (5,000 unit) tablet (Vitamin D3) colchicine 0.6 mg tablet 0.6 mg PO DAILY PRN Inflammation 08/30/22 08/30/22 History omega 5-uqb-gmh-fish oil 60 mg-90 1 cap PO DAILY 08/30/22 08/30/22 History mg-500 mg capsule (Fish Oil) vitamin B complex (B 1 tablet PO DAILY 08/30/22 08/30/22 History Complex-Vitamin B12 tablet) zolpidem 10 mg tablet 10 mg PO HS 08/30/22 08/30/22 History Laboratory Tests 08/30/22 08/30/22 08/30/22 15:53 16:51 19:52 WBC RBC Hgb 7.8 g/dL L g/dL (14.0-18.0) Hct 25.3 % L % (42.0-52.0) MCV MCH MCHC RDW Plt Count MPV Sodium Potassium Chloride Carbon Dioxide Anion Gap BUN Creatinine Estim Creat Clear Calc Estimated GFR Glucose POC Capillary Glucose 103 mg/dl mg/dl 120 mg/dl H mg/dl (65-105) (65-105) Calcium Magnesium Hep Bs Antigen Hepatitis C Ab Screen HIV 1&2 Ab/P24 Ag 4thGn 08/31/22 08/31/22 08/31/22 04:45 04:48 04:48 WBC 10.2 K/mm3 H K/mm3 (4.5-10.0) RBC 2.72 M/mm3 L M/mm3 (4.6-6.20) Hgb 7.9 g/dL L g/dL (14.0-18.0) Hct 25.5 % L % (42.0-52.0) MCV 93.8 fl fl (80-100) MCH 29.0 pg pg (26-34) MCHC 31.0 g/dl L g/dl (32-36) RDW 15.4 % H % (11.5-14.5) Plt Count 245 k/mm3 k/mm3 (150-375) MPV 11.5 fl H fl (7.4-10.4) Sodium 137 mmol/L mmol/L (137-145) Potassium 4.3 mmol/L mmol/L (3.4-5.0) Chloride 99 mmol/L mmol/L (98-107) Carbon Dioxide 28 mmol/L mmol/L (22-30) Anion Gap 10 mmol/L mmol/L
[2022-08-31 14:18] LABS: Hepatitis B Surface Antigen Negative (Negative)
[2022-08-31 14:35] LABS: HIV 1/2 Ab P24 Ag Result Negative (Negative); Hepatitis C Virus Antibody Negative (Negative)
--- NOTE | 2022-08-31 14:45 | SUR.OPER ---
EGD end 1441 Colonoscopy start 1445
[2022-08-31 15:23] LABS: Glucose Point of Care 108 mg/dl (65-105)
--- NOTE | 2022-08-31 15:44 | PM.DS ---
DS: Admitting Diagnosis Discharge Date 08/31/22 Admitting Diagnosis Shortness of breath DS: Discharge Diagnosis Discharge Diagnosis (1) GI bleed: Code(s): K92.2 - Gastrointestinal hemorrhage, unspecified Status: Acute (2) Acute blood loss anemia: Code(s): D62 - Acute posthemorrhagic anemia Status: Acute (3) Elevated troponin: Code(s): R77.8 - Other specified abnormalities of plasma proteins Status: Acute (4) Combined systolic and diastolic heart failure: Code(s): I50.40 - Unspecified combined systolic (congestive) and diastolic (congestive) heart failure Status: Inactive (5) Renal insufficiency: Code(s): N28.9 - Disorder of kidney and ureter, unspecified Status: Acute (6) PAF (paroxysmal atrial fibrillation): Code(s): I48.0 - Paroxysmal atrial fibrillation Status: Acute (7) Essential hypertension: Code(s): I10 - Essential (primary) hypertension Status: Acute (8) ALEX (obstructive sleep apnea): Code(s): G47.33 - Obstructive sleep apnea (adult) (pediatric) Status: Acute (9) Type 2 diabetes mellitus: Code(s): E11.9 - Type 2 diabetes mellitus without complications Status: Chronic (10) Hyperlipidemia associated with type 2 diabetes mellitus: Code(s): E11.69 - Type 2 diabetes mellitus with other specified complication; E78.5 - Hyperlipidemia, unspecified Status: Acute (11) Gout: Code(s): M10.9 - Gout, unspecified Status: Acute (12) History of aortic valve replacement with bioprosthetic valve: Code(s): Z95.3 - Presence of xenogenic heart valve Status: Acute DS: Summary Hospital Course Reason for hospitalization: 67yo male with AFib on Xarelto, ALEX, HTN and DM here for palpitations, SOB and chest pain and found to have anemia and guaiac positive stools. Please see H&P for details Hospital Course: Hemoglobin last September was 12.4.? Hemoglobin in May was 10.8-11.1 range.? Patient presents with chest pain, SOB and found to have a hemoglobin of 6.4.? Stools guaiac positive.? He has been having dark stools.? Protonix started.? He has been transfused 2 units of PRBC and hemoglobin has climbed to 7-8 range and remained stable.? Symptoms improved.? His Xarelto was held.? Troponin mildly elevated but flat at 0.04 felt related to severe anemia and/or renal insufficiency. We continued Coreg, statin. Not likely to be acute coronary ischemia. CXR showing?likely mild congestive heart failure with cardiomegaly, pulmonary vascular congestion and mild pulmonary edema in the lower lung zones. Echo 04/13/22?with EF40-45% and indeterminate diastolic function. Lasix IV given after transfusion. Repeat CXR showing improvement. Not on O2 and remained euvolemic. Suspect acute on chronic diastolic and systolic CHF related to severe anemia. Creatinine was normal last year but was 1.5 in May.? Creatinine 1.75 on admission at the outside hospital and about the same on recheck.? Could be related to over-diuresis or possibly ATN from the anemia.?Bumex was continued but lisinopril and spironolactone held.?Renal ultrasound showed bilateral atrophy. GI was consulted.? EGD showing gastritis and colonoscopy showing internal hemorrhoids. No clear source of blood loss. Plan for capsule endoscopy. He overall did well and was able to be discharged home on 08/31/22 Status at Discharge Cognitive/behavioral status at discharge: stable Time Spent with Patient Time attestation: Total time spent providing and/or coordinating discharge services: 32 minutes Time spent: Greater than 30 minutes Exam Narrative: AF 97.5 152/91 72 18 100% ra Gen - NARD Chest - distnat with a few scattered rhonchi CV - RRR S1/S2. Tele showing paced rhythm with probably afib at times Abd - Soft, obese, NT Ext - No pedal edema Psych - Nml mood and affect Skin - Warm and dry DS: Data Data Completed and Pending Pending s
[2022-08-31 16:15] LABS: Glucose Point of Care 104 mg/dl (65-105)
[2022-08-31] MEDS: carvediloL 6.25 MG TABLET PO (17:24)
[2022-08-31] MEDS: MAGNESIUM OXIDE 400 MG TABLET PO (17:25)
[2022-08-31] MEDS: VITAMIN B COMPLEX CAPSULE 1 CAP PO (17:25)
[2022-08-31] MEDS: CHOLECALCIFEROL 1,000 UNITS TABLET 5000 UNITS PO (17:25)
== END 2022-08-31 17:39 | disposition home or self-care (01) | DRG 377 ==
PROVIDERS: Internal Medicine Gastroenterology; Nurse Practitioner; Student in an Organized Health Care Education/Training Program; Admitting Provider Family Medicine; PCP Nurse Practitioner Family; Visit Provider Internal Medicine
PROC: 0DJ08ZZ Inspection of Upper Intestinal Tract, Via Natural or Artificial Opening Endoscopic (ICD-10-PCS; CPT 43235; principal; 2022-08-31 16:15)
DX: K92.2 Gastrointestinal hemorrhage, unspecified (principal); I50.43 Acute on chronic combined systolic (congestive) and diastolic (congestive) heart failure; D62 Acute posthemorrhagic anemia; F33.9 Major depressive disorder, recurrent, unspecified; Z68.42 Body mass index [BMI] 45.0-49.9, adult; I11.0 Hypertensive heart disease with heart failure; I48.0 Paroxysmal atrial fibrillation; K29.70 Gastritis, unspecified, without bleeding; E78.5 Hyperlipidemia, unspecified; E11.9 Type 2 diabetes mellitus without complications; R77.8 Other specified abnormalities of plasma proteins; E66.01 Morbid (severe) obesity due to excess calories; N28.9 Disorder of kidney and ureter, unspecified; M10.9 Gout, unspecified; K64.8 Other hemorrhoids; Z95.3 Presence of xenogenic heart valve; Z79.01 Long term (current) use of anticoagulants; Z79.82 Long term (current) use of aspirin; Z95.0 Presence of cardiac pacemaker; Z79.84 Long term (current) use of oral hypoglycemic drugs; Z87.891 Personal history of nicotine dependence; Z90.49 Acquired absence of other specified parts of digestive tract
CPT/HCPCS: 36415; 36430; 71045; 76775; 80048; 80053; 80069; 81001; 82274; 82948; 83036; 83605; 83735; 84443; 84484; 85014; 85018; 85025; 85027; 86703; 86803; 86850; 86900; 86901; 86923; 87040; 87340; 88305; 96361; 96374; 96375; A9270; C9113; G0378; G0379; G0432; J1940; J2704; J7050; J7120; P9016

== ENCOUNTER 2022-09-08 07:17 | Outpatient (RCR) | payer OTHER, MEDICARE, SELFPAY ==
[2022-09-07 12:31] LABS: Hematocrit 23.5 % (37.0-46.0); Hemoglobin 7.1 g/dL (12.4-15.3); Mean Corpuscular HGB Conc 30.2 g/dL (32.0-36.0); Mean Corpuscular Hemoglobin 28.3 pg (27.0-31.0); Mean Corpuscular Volume 93.6 fL (78.0-102.0); Mean Platelet Volume 10.7 fl (8.7-11.0); Platelet Count Result 319 K/mm3 (150-420); Red Blood Count 2.51 M/mm3 (4.70-6.10); Red Cell Distribution Width 15.5 % (11.6-14.4); White Blood Count 8.7 K/mm3 (4.8-10.8)
[2022-09-07 13:54] LABS: Anion Gap 7 mmol/L (8-16); Blood Urea Nitrogen 31 mg/dL (7-18); Calcium 8.8 mg/dL (8.5-10.1); Carbon Dioxide 31 mmol/L (21-32); Chloride 107 mmol/L (98-108); Estimated Glomerular Filt Rate 40; Glucose 105 mg/dL (70-99); Osmolality Calculated 306 mOsm/kg (285-295); Sodium 145 mmol/L (136-145)
[2022-09-08] VITALS (10 sets, daily range): BP systolic 117–137; BP diastolic 57–72; PULSE 64–79; RESP 14–18; TEMP 35.9–36.6; O2SAT 95–99; BMI 47.4
[2022-09-08] MEDS: SODIUM CHLORIDE 0.9% IV 250 ML 10 ML IVPB (07:30)
--- NOTE | 2022-09-08 10:31 | PC.NURSE ---
0730 Patient here for blood transfusion. Permit signed. Education given. Reports had blood just last week at [facility]. No problems reported. 0739 One Unit of Prbc's started at 80 ml/hr. 0758 Tolerated blood well. No s/sx of blood transfusion reaction noted or reported. UP infusion 100 ml/hr. 0828 Tolerating blood well. UP infusion 125 ml/hr. 1010 1 unit Prbc's completed. Normal saline infusion. 1030 Lab here for for post H/H.
[2022-09-08 10:40] LABS: Hematocrit 24.4 % (37.0-46.0); Hemoglobin 7.4 g/dL (12.4-15.3)
--- NOTE | 2022-09-08 11:05 | PC.NURSE ---
Post Hgb is 7.4. Call Dea Coe NP. Order received to give 1 more unit Prbc's.
--- NOTE | 2022-09-08 12:05 | PC.NURSE ---
1131 2nd unit of prbc's started. Rate 80 ml/hr. 1141 Tolerating blood transfusion well. No s/sx of transfusion reaction noted or reported. 1201 Tolerating blood transfusion well. Up rate 100 m/hr.
--- NOTE | 2022-09-08 13:00 | PC.NURSE ---
1300 Tolerated blood well. Keeping rate at 125 ml/hr. Voices no concerns.
--- NOTE | 2022-09-08 14:43 | PC.NURSE ---
1439 2nd Unit of Prbc's completed. Normal saline infusing. No blood transfusion reaction note or reported. No concerns voiced.
[2022-09-08 15:09] LABS: Hematocrit 26.7 % (37.0-46.0); Hemoglobin 8.2 g/dL (12.4-15.3)
--- NOTE | 2022-09-08 15:16 | PC.NURSE ---
Post Hgb 8.2. Patient tolerated blood transfusions well. Safe exit of hospital.
== END 2022-12-06 23:59 | disposition home or self-care (01) ==
LOC: CHSTREATRM 07:17
PROVIDERS: PCP Nurse Practitioner Family; Visit Provider Internal Medicine
DX: D62 Acute posthemorrhagic anemia (principal)
CPT/HCPCS: 36415; 36430; 80048; 85014; 85018; 85027; 86850; 86900; 86901; 86920; P9016

== ENCOUNTER 2022-09-18 08:27 | Outpatient (CLI) | payer OTHER, MEDICARE, SELFPAY ==
[2022-09-18 08:44] LABS: Basophils Absolute Auto 0.06 K/mm3 (0.00-0.10); Basophils Percent Auto 0.6 % (0.0-1.0); Eosinophils Absolute Auto 0.13 K/mm3 (0.02-0.50); Eosinophils Percent Auto 1.4 % (1.0-6.0); Immature Granulocyte Absolute 0.04 K/mm3 (0.00-0.00); Immature Granulocyte Percent A 0.4 % (0.0-0.0); Lymphocytes Percent Auto 15.9 % (18.0-42.0); Mean Corpuscular HGB Conc 29.7 g/dL (32.0-36.0); Mean Corpuscular Hemoglobin 27.5 pg (27.0-31.0); Mean Corpuscular Volume 92.4 fL (78.0-102.0); Mean Platelet Volume 10.9 fl (8.7-11.0); Monocytes Absolute Auto 0.76 K/mm3 (0.10-0.90); Neutrophils Percent Auto 73.7 % (50.0-70.0); Nucleated Red Blood Cells Absolute Auto 0.02 K/mm3 (0.00-0.00); Nucleated Red Blood Cells Perc 0.2 % (0-0.0); Platelet Count Result 256 K/mm3 (150-420); Red Blood Count 2.11 M/mm3 (4.70-6.10); Red Cell Distribution Width 16.2 % (11.6-14.4); White Blood Count 9.5 K/mm3 (4.8-10.8)
[2022-09-18 09:01] LABS: Hematocrit 19.5 % (37.0-46.0); Hemoglobin 5.8 g/dL (12.4-15.3)
[2022-09-18 09:48] LABS: Alanine Aminotransferase 17 U/L (16-63); Albumin Level 3.2 g/dL (3.4-5.0); Alkaline Phosphatase 88 U/L (46-116); Anion Gap 11 mmol/L (8-16); Aspartate Amino Transferase 19 U/L (15-37); Bilirubin,Total 0.3 mg/dL (0.00-1.00); Blood Urea Nitrogen 47 mg/dL (7-18); Calcium 8.8 mg/dL (8.5-10.1); Carbon Dioxide 29 mmol/L (21-32); Chloride 103 mmol/L (98-108); Estimated Glomerular Filt Rate 38; Glucose 123 mg/dL (70-99); Osmolality Calculated 309 mOsm/kg (285-295); Potassium 3.7 mmol/L (3.5-5.1); Sodium 143 mmol/L (136-145); Total Protein 6.5 g/dL (6.4-8.2)
== END 2022-09-18 08:28 | disposition home or self-care (01) ==
LOC: CHSLAB 08:29
PROVIDERS: PCP Nurse Practitioner Family; Visit Provider Nurse Practitioner Family
DX: D64.9 Anemia, unspecified (principal)
CPT/HCPCS: 36415; 80053; 85025

== ENCOUNTER 2022-09-18 09:21 | Emergency (ER) | payer OTHER, MEDICARE, SELFPAY ==
[2022-09-18] VITALS (67 sets, daily range): BP systolic 89–135; BP diastolic 41–91; PULSE 69–99; RESP 14–27; TEMP 36.2–36.8; O2SAT 95–100
--- NOTE | ~2022-09-18 | XR_ITS ---
EXAMINATION: XR chest 1V portable INDICATION: Chest pain and shortness of breath TECHNIQUE: Portable AP chest at 1021 hours COMPARISON: 08/28/2022 FINDINGS: Cardiomegaly is noted. There is mild pulmonary edema. No pleural effusion or pneumothorax. Median sternotomy wires and mediastinal surgical clips are seen, likely from prior coronary artery by pass grafting. A dual-lead cardiac pacemaker of the left chest wall ends with leads in expected locat ions. IMPRESSION: 1. Cardiomegaly with pulmonary edema. Reviewed, dictated and finalized at location A. E CRU[facility]
--- NOTE | 2022-09-18 09:45 | ECG_ITS ---
Measurements Intervals [place] Rate: 71 P: 117 WI: 282 QRS: 129 QRSD: 162 T: -62 QT: 451 QTc: 491 Interpretive Statements ELECTRONIC VENTRICULAR PACEMAKER -- CONTOUR ANALYSIS BASED ON INTRINSIC RHYTHM ATYPICAL ECG Electronically Signed On 09-18-2022 15:09:44 OUTSOLE HANDLER by Rogelio Vidal M.D.
[2022-09-18 10:12] LABS: Basophils Absolute Auto 0.06 K/mm3 (0.00-0.10); Basophils Percent Auto 0.6 % (0.0-1.0); Eosinophils Absolute Auto 0.13 K/mm3 (0.02-0.50); Eosinophils Percent Auto 1.3 % (1.0-6.0); Immature Granulocyte Absolute 0.05 K/mm3 (0.00-0.00); Immature Granulocyte Percent A 0.5 % (0.0-0.0); Lymphocytes Absolute Auto 1.16 K/mm3 (1.10-4.50); Lymphocytes Percent Auto 11.7 % (18.0-42.0); Mean Corpuscular HGB Conc 30.1 g/dL (32.0-36.0); Mean Corpuscular Hemoglobin 27.5 pg (27.0-31.0); Mean Corpuscular Volume 91.5 fL (78.0-102.0); Monocytes Absolute Auto 0.77 K/mm3 (0.10-0.90); Monocytes Percent Auto 7.8 % (2.0-11.0); Neutrophils Absolute Auto 7.7 K/mm3 (1.7-7.2); Neutrophils Percent Auto 78.1 % (50.0-70.0); Platelet Count Result 259 K/mm3 (150-420); Red Blood Count 2.11 M/mm3 (4.70-6.10); Red Cell Distribution Width 16.1 % (11.6-14.4); White Blood Count 9.9 K/mm3 (4.8-10.8)
--- NOTE | 2022-09-18 10:12 | PC.NURSE ---
ICE CHIPS PROVIDED, BLOOD CONSENT OBTAINED.
[2022-09-18 10:14] LABS: Occult Blood Positive (Negative)
[2022-09-18 10:19] LABS: Hematocrit 19.3 % (37.0-46.0); Hemoglobin 5.8 g/dL (12.4-15.3)
--- NOTE | 2022-09-18 10:22 | PC.NURSE ---
PT IS REPORTING SOB AND NAUSEA. PT PLACED ON O2 @ 2L. AWAITING ORDERS FOR NAUSEA MEDICATION AT THIS TIME.
[2022-09-18 10:26] LABS: INR 1.5; Prothrombin Time 15.5 Seconds (9.50-12.10)
[2022-09-18] MEDS: ONDANSETRON INJ 4 MG/2 ML VIAL IV PUSH (10:29)
[2022-09-18] MEDS: SODIUM CHLORIDE 0.9% IV 250 ML 30 ML IV CONT (10:51)
--- NOTE | 2022-09-18 10:57 | PC.NURSE ---
pt is sitting up on stretcher with blood transfusing without difficulty. pt reports medication has helped with nausea and o2 has helped with sob. nad noted. ice chips provided. vss. will continue to monitor.
--- NOTE | 2022-09-18 11:23 | PC.NURSE ---
HAS ARRIVED AT BEDSIDE. BLOOD TRANSFUSING ORDERED WITHOUT DIFFICULTY. VSS PER MONITOR. NAD NOTED. WILL CONTINUE TO MONITOR.
[2022-09-18 12:29] LABS: Hematocrit 21.4 % (37.0-46.0)
[2022-09-18 12:31] LABS: Hemoglobin 6.5 g/dL (12.4-15.3)
--- NOTE | 2022-09-18 12:48 | PC.NURSE ---
PT IS UPDATED ON KRISTEN STATUS, LUNCH TRAY ORDERED PER ERP APPROVAL. NAD NOTED. HAS LEFT AT THIS TIME. VSS PER MONITOR. LAB NOTIFIED OF 6.5 HGB. WILL CONTINUE TO MONITOR.
--- NOTE | 2022-09-18 13:31 | PC.NURSE ---
pt completed lunch, has retuned. pt has 2nd blood transfusion in progress at this time. nad noted. pt is awaiting return call from hospitalist. will continue to monitor.
--- NOTE | 2022-09-18 13:36 | PC.NURSE ---
PT COLOR IS IMPROVING AT THIS TIME. DENIES ANY NEEDS OR COMPLAINTS. AT BEDSIDE. BLOOD TRANSFUSING ORDERED WITHOUT DIFFICULTY. PT REPORTS O2 HELPS WITH SOB. DENIES ANY MORE NAUSEA. ATE LUNCH TRAY WITHOUT DIFFICULTY. WILL CONTINUE TO MONITOR.
--- NOTE | 2022-09-18 14:50 | PC.NURSE ---
SPOKE WITH PT AND TO UPDATE STATUS. ADVISED THAT HOSPITALIST HERE AND AT [facility] HAVE DECLINED THE PT. MADE CONTACT WITH [facility], PT REQUESTED [facility], NO BEDS AVAILABLE WITHIN [facility]. PT AND DECLINE TO GO ANYWHERE ELSE. PT AND STATE THE LAST TIME THIS HAPPENED, PT SAT IN A ROOM ALL WEEKEND AND NOTHING WAS DONE UNTIL WEDNESDAY AND THEY WOULD LIKE TO JUST RECEIVE HIS BLOOD AND GO HOME AT THIS POINT. THEY AGREE TO STAY FOR ALL 3 UNITS AND REPORT IF ANYTHING HAPPENS OVER THE WEEKEND THEY WILL RETURN TO AN ER. PT DECLINES WANTING TO STAY IN ER UNTIL BED FOR TRANSFER BECOMES AVAILABLE, DECLINES GOING TO [facility] OR ANY OUTSIDE HOSPITAL AT THIS TIME. ADVISED PT AND TO THINK ABOUT THEIR OPTIONS AND TO NOTIFY RN IF THEY CHANGE THEIR MINDS. PT AND ARE CALM AND POLITE ABOUT THE SITUATION, ERP IS AWARE. BLOOD IS TRANSFUSING ORDERED WITHOUT DIFFICULTY. WILL CONTINUE TO MONITOR.
[2022-09-18 16:26] LABS: Hematocrit 23.2 % (37.0-46.0); Hemoglobin 7.2 g/dL (12.4-15.3)
--- NOTE | 2022-09-18 17:12 | PC.NURSE ---
pt and are eating dinner at this time. 3rd transfusion in progress without difficulty. no adverse reactions noted. vss per monitor. will continue to monitor.
--- NOTE | 2022-09-18 17:50 | PC.NURSE ---
PT HAS BLOOD INFUSING WITHOUT DIFFICULTY. AT BEDSIDE. NAD NOTED. VSS PER MONITOR. WILL CONTINUE TO MONITOR.
--- NOTE | 2022-09-18 18:56 | PC.NURSE ---
TRANSFUSIONS ARE NOW COMPLETED. PT TO HAVE LABS DRAWN. PT IS AWARE OF PLAN OF CARE. DENIES ANY NEEDS OR COMPLAINTS.
[2022-09-18 19:17] LABS: Hematocrit 24.1 % (37.0-46.0); Hemoglobin 7.6 g/dL (12.4-15.3)
--- NOTE | 2022-09-18 19:27 | ED.GENADULT ---
HPI - General Adult General Chief complaint: Recheck/Abnormal Lab/Rx Stated complaint: Abn labs Time Seen by Provider: 09/18/22 09:25 Source: patient, family and RN notes reviewed Mode of arrival: ambulatory Limitations: no limitations History of Present Illness MD complaint: pt has had recurrent anemia with recent PMD labs: Hb 5.8. Pt here for tr Onset (ago): day(s) (1) Radiation: other (pain-free) Relieving factors: none Exacerbating factors: none Treatments prior to arrival: none Related Data Home Medications Medication Instructions Recorded Confirmed atorvastatin 10 mg tablet 10 mg PO HS 08/28/22 09/22/22 cholecalciferol (vitamin D3) 125 125 mcg PO DAILY 08/30/22 09/22/22 mcg (5,000 unit) tablet (Vitamin D3) omega 6-fqr-ujl-fish oil 60 mg-90 1 cap PO DAILY 08/30/22 09/22/22 mg-500 mg capsule (Fish Oil) vitamin B complex (B 1 tablet PO DAILY 08/30/22 09/22/22 Complex-Vitamin B12 tablet) zolpidem 10 mg tablet 10 mg PO HS 08/30/22 09/22/22 Allergies Allergy/AdvReac Type Severity Reaction Status Date / Time aspartame Allergy Severe Unknown Verified 09/22/22 20:35 cyclobenzaprine [Flexeril] Allergy Intermediate Unknown Verified 09/22/22 20:35 Penicillins Allergy Intermediate Unknown Verified 09/22/22 20:35 iohexol Allergy Hives Verified 09/22/22 20:35 [From contrast - CT, X-RAY] Review of Systems Review of Systems: All systems reviewed & are unremarkable except as noted in HPI and below Constitutional: Constitutional: Reports no additional constitutional complaints Eyes: Eyes: Reports no additional eye complaints ENT: Reports system reviewed and no additional complaints, except as documented Cardiovascular: Cardiovascular: Reports no additional cardiovascular complaints Respiratory: Respiratory: Reports no additional respiratory complaints Gastrointestinal: Gastrointestinal: Reports no additional gastrointestinal complaints Musculoskeletal: Musculoskeletal: Reports no additional musculoskeletal complaints Integumentary/Breasts: Skin/Breast: Reports system reviewed and no additional complaints, except as docu Neurologic: Reports system reviewed and no additional complaints, except as documented Psychiatric: Psychiatric: Reports no additional psychiatric complaints Endocrine: Endocrine: Reports no additional endocrine complaints Hematologic/Lymphatic: Hematologic/Lymphatic: Reports no additional hematologic/lymphatic complaints Allergic/Immunologic: Allergic/Immunologic: Reports no additional allergic/immunologic complaints PMFSH Past Medical History Medical History Acute blood loss anemia Blood thinned due to long-term anticoagulant use COVID-19 Dyslipidemia Essential hypertension Gout Grade III diastolic dysfunction Major depression, recurrent Morbid obesity Obstructive sleep apnea treated with BiPAP Occult blood in stools Pacemaker Rapid heart rate Type 2 diabetes mellitus Surgical History Surgical History History of aortic valve replacement (~2014) Hx of cholecystectomy S/P placement of cardiac pacemaker left side Family History Family History Father Kidney disease Mother Diabetes mellitus Heart disease Social History Social History Social History: Surrogate decision maker: Louisa Allred, . Code status: Full code. The patient has 2 children. The patient is retired from [employer] in [place]. The patient is a ex-smoker. He does not use any alcohol marijuana or illicit drugs. Smoking packs per day: 2 Smoking cigarettes per day: 40.0 Years smoked: 30 Smoking pack-years: 60.00 Smoking status: Never smoker Alcohol intake: never Substance use: never Substance use type: does not use Lack of Transpor
== END 2022-09-18 20:01 | disposition home or self-care (01) ==
PROVIDERS: Emergency Provider Emergency Medicine; PCP Nurse Practitioner Family
DX: K92.1 Melena (principal); D64.9 Anemia, unspecified
CPT/HCPCS: 36415; 36430; 71045; 82272; 85014; 85018; 85025; 85610; 85730; 86850; 86900; 86901; 86920; 93005; 96361; 96374; 99284; J2405; J7050; P9016

== ENCOUNTER 2022-09-22 19:40 | Emergency (ER) | payer OTHER, MEDICARE, SELFPAY ==
[2022-09-22] VITALS (7 sets, daily range): BP systolic 135–151; BP diastolic 54–109; PULSE 69–80; RESP 11–24; TEMP 36.2–37; O2SAT 95–100
--- NOTE | ~2022-09-22 | CT_ITS ---
EXAMINATION: CT chest abdomen pelvis wo con DATE: 09/22/2022 21:52 INDICATION: sob/weakness hx anemia, aortic valve replacement, covid . TECHNIQUE: Computed tomography (CT) of the chest, abdomen, and pelvis was performed without intraveno us contrast. Automated exposure control and iterative reconstruction technique were employed. The dos e-length product was 2117.93 mGy-cm. COMPARISON: X-ray chest 09/18/2022. Ultrasound 08/30/2022, CTPA chest 11/16/2014. FINDINGS: Motion limited examination. Thoracic aorta: No significant dilation. Mild arch calcification. Lung parenchyma and airways: Diffuse scattered centrilobular groundglass opacities. Thoracic inlet, axillae and chest wall: No thyroid or soft tissue mass. Left chest pacer/defibrillato r. Sternotomy wires. No axillary lymphadenopathy. Mediastinum: No mass or lymphadenopathy. Heart and pericardium: Mild cardiomegaly. Aortic valve replacement. No pericardial effusion. Coronary artery calcifications: Mild. Pleura: Moderate simple right pleural fluid collection. Thoracic bones: No acute osseous finding in the chest. ABDOMEN/PELVIS: Liver: Normal. Biliary/Gallbladder: Gallbladder is absent. No bile duct dilation. Pancreas: No mass or duct dilation. Spleen: Normal. Adrenals:Multiple left adrenal myolipomas. Kidneys: Mild bilateral renal atrophy. Nonobstructing bilateral calculi. No suspicious mass or hydron ephrosis GI tract: No small or large bowel dilation. Appendix not confidently visualized Mesentery/Peritoneum: No ascites, mass, or free air. Retroperitoneum: No mass. Atherosclerotic abdominal aortic and/or arterial calcifications. Pelvis: Pelvic organs are within normal limits Soft Tissues: Soft tissues and body wall unremarkable. Abdominopelvic bones: No acute osseous finding in the abdomen/pelvis. IMPRESSION: Motion limited examination particularly in the lungs and bowel. Pulmonary opacities may reflect hyper sensitivity pneumonitis, respiratory bronchiolitis, or infectious airways disease. Moderate simple ri ght pleural effusion. No acute abdominopelvic process detected. Reviewed, dictated and finalized at location K. NT RETENTION SPECIALIST IMPRESSION: Motion limited examination particularly in the lungs and bowel. Pulmonary opaci ties may reflect hypersensitivity pneumonitis, respiratory bronchiolitis, or in fectious airways disease. Moderate simple right pleural effusion. No acute abdo minopelvic process detected.
--- NOTE | ~2022-09-22 | XR_ITS ---
XR chest 1V portable 09/25/2022 21:14 Indication: Dyspnea. CHF. Procedure: AP portable chest Comparison: Comparison to multiple prior studies sequentially, with oldest reviewed study dated 06/08. Findings: Status post median sternotomy for CABG. Cardiomegaly. There is pulmonary edema. Small right pleural effusion. Pacemaker leads are stable. Impression: 1: Cardiomegaly with pulmonary edema. 2: Small right pleural effusion. Reviewed, dictated and finalized at location A. CHANGER Impression: 1: Cardiomegaly with pulmonary edema. 2: Small right pleural effusion.
--- NOTE | 2022-09-22 20:54 | ECG_ITS ---
Measurements Intervals [place] Rate: 71 P: AR: 0 QRS: -42 QRSD: 169 T: 256 QT: 458 QTc: 500 Interpretive Statements ELECTRONIC VENTRICULAR PACEMAKER WITH INTERMITTENT [place] CONDUCTION -- CONTOUR ANALYSIS BASED ON INTRINSIC RHYTHM NO FURTHER INTERPRETATION POSSIBLE COMPARED TO ECG 09/18/2022 10:08:54 NO SIGNIFICANT CHANGE Electronically Signed On 09-23-2022 15:31:42 POWDER BLENDER AND POURER by Jeromy Salgado M.D.
[2022-09-22 21:12] LABS: Base Excess ABG 0.7 mmol/L (0-2); HCO3 ABG 24.6 mmol/L (23-29); Oxygen Content ABG 9.2 %vol (16.0-22.0); Oxygen Saturation ABG 97.6 % (95-97); Oxyhemoglobin 96.9 % (94-100); PCO2 ABG 35.6 mmHg (35-45); pH ABG 7.46 (7.35-7.45)
[2022-09-22] MEDS: ALBUTEROL SULFATE NEB 2.5 MG/3 ML INH 5 MG INHALATION (21:14)
[2022-09-22 21:15] LABS: Basophils Absolute Auto 0.05 K/mm3 (0.00-0.10); Basophils Percent Auto 0.6 % (0.0-1.0); Eosinophils Absolute Auto 0.14 K/mm3 (0.02-0.50); Eosinophils Percent Auto 1.6 % (1.0-6.0); Immature Granulocyte Absolute 0.04 K/mm3 (0.00-0.00); Immature Granulocyte Percent A 0.5 % (0.0-0.0); Lymphocytes Absolute Auto 1.19 K/mm3 (1.10-4.50); Lymphocytes Percent Auto 13.5 % (18.0-42.0); Mean Corpuscular HGB Conc 29.6 g/dL (32.0-36.0); Mean Corpuscular Hemoglobin 27.4 pg (27.0-31.0); Mean Corpuscular Volume 92.6 fL (78.0-102.0); Mean Platelet Volume 11.8 fl (8.7-11.0); Monocytes Absolute Auto 0.88 K/mm3 (0.10-0.90); Neutrophils Absolute Auto 6.5 K/mm3 (1.7-7.2); Neutrophils Percent Auto 73.8 % (50.0-70.0); Nucleated Red Blood Cells Absolute Auto 0.05 K/mm3 (0.00-0.00); Nucleated Red Blood Cells Perc 0.6 % (0-0.0); Platelet Count Result 288 K/mm3 (150-420); Red Blood Count 2.15 M/mm3 (4.70-6.10); Red Cell Distribution Width 16.2 % (11.6-14.4); White Blood Count 8.8 K/mm3 (4.8-10.8)
[2022-09-22 21:17] LABS: Device NASAL CANNULA; Hemoglobin 5.9 g/dL (12.4-15.3); Modified Allen's Test Pass; Site Drawn LEFT RADIAL; Total Hemoglobin 6.6 g/dL (12.0-18.0)
[2022-09-22 21:18] LABS: Hematocrit 19.9 % (37.0-46.0)
[2022-09-22 21:38] LABS: Alanine Aminotransferase 13 U/L (16-63); Albumin Level 2.9 g/dL (3.4-5.0); Alkaline Phosphatase 87 U/L (46-116); Anion Gap 8 mmol/L (8-16); Aspartate Amino Transferase 16 U/L (15-37); Bilirubin,Total 0.3 mg/dL (0.00-1.00); Blood Urea Nitrogen 48 mg/dL (7-18); Calcium 8.7 mg/dL (8.5-10.1); Carbon Dioxide 32 mmol/L (21-32); Chloride 104 mmol/L (98-108); Estimated CRCL calculation 46 ml/min; Estimated Glomerular Filt Rate 32; Glucose 144 mg/dL (70-99); NT Pro B Type Natriuretic Pept 2733 pg/mL (0-125); Osmolality Calculated 313 mOsm/kg (285-295); Potassium 4.1 mmol/L (3.5-5.1); Sodium 144 mmol/L (136-145); Total Protein 6.7 g/dL (6.4-8.2)
--- NOTE | 2022-09-22 21:50 | PC.NURSE ---
Lab reports a critical trop of 379. Reported to ERP.
--- NOTE | 2022-09-22 22:00 | PC.NURSE ---
PATIENT WOULD NOT HOLD STILL DURING IV THERAPY
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
--- NOTE | 2022-09-22 22:03 | PC.NURSE ---
Pt requests for transfer to [facility]. RN calls warehouse record clerk, Wallace, who takes pt info and states that pt will be placed on a waitlist.
[2022-09-22 22:17] LABS: Magnesium 1.9 mg/dL (1.8-2.4)
--- NOTE | 2022-09-22 22:21 | PC.NURSE ---
RN calls [facility] to start a possible transfer. Transfer line states that they are full and that pt does not have a well enough connection to [facility] and cannot be placed on a waitlist.
--- NOTE | 2022-09-22 22:26 | PC.NURSE ---
RN calls [facility] connect and talks to [place]. After giving pt information pt is placed on a waitlist with 19 pts ahead of him.
--- NOTE | 2022-09-22 22:47 | PC.NURSE ---
Pt states that they had an extensive stay at [facility] in 2015. RN recalls to try to confirm a stay. [facility] transfer center is able to find pt's stay and will talk to ERP.
[2022-09-22 22:56] LABS: SARS-CoV-2 RNA PCR Negative (Negative)
[2022-09-22] MEDS: FUROSEMIDE INJ 40 MG/4 ML VIAL 80 MG IV PUSH (23:21)
[2022-09-23] VITALS (94 sets, daily range): BP systolic 108–162; BP diastolic 58–97; PULSE 69–96; RESP 14–30; TEMP 36.2–36.5; O2SAT 66–100
[2022-09-23 00:26] LABS: Troponin I 386.7 ng/L (0.00-60.4)
[2022-09-23] MEDS: SODIUM CHLORIDE 0.9% IV 250 ML 30 ML IV CONT (01:40)
--- NOTE | 2022-09-23 01:57 | PC.NURSE ---
Yola from [facility] transfer center calls to inform that pt has been accept by Dr. Morrison at [facility]. RN gave triage report to Yola and she states that waiting for service or work dispatcher chief to accept pt. States will call with a bed.
[2022-09-23 02:19] LABS: Hematocrit 22.3 % (37.0-46.0)
[2022-09-23 02:20] LABS: Hemoglobin 6.7 g/dL (12.4-15.3)
[2022-09-23 04:11] LABS: Appearance Urine Clear (Clear); Bilirubin Urine Negative (Negative); Glucose Urine UA Negative (Negative); Ketones Urine Negative (Negative); Leukocyte Esterase Ur Negative LEU/UL (Negative); Nitrate Urine Negative (Negative); Protein Urine Negative (Negative); Urobilinogen Urine 0.2 mg/dL (0.2-1.0)
[2022-09-23 04:14] LABS: Add Urine Microscopic? YES; Bacteria Urine Trace /hpf; Blood Urine Trace-Intact (Negative); Color Urine Light Yellow (Yellow); RBC Urine 0-2 /hpf (0-2); WBC Urine 0-3 /hpf (0-3)
[2022-09-23 04:40] LABS: Hematocrit 24.3 % (37.0-46.0); Hemoglobin 7.4 g/dL (12.4-15.3)
--- NOTE | 2022-09-23 04:46 | PC.NURSE ---
RN calls [facility] transfer line and talks to Rachel to update on pt status and check on pt's room assignment. Rachel states that the pt has been accepted by hospitalist, Dr. Morrison, and the concrete pump operator helper will be accepting consult upon pt arrival. Rachel also states that it is unlikely pt transfers during this shift, but pt is 5th on list. Rachel states to inform [facility] transfer line of any update in status and that the next call should be a room assignment. RN informs pt. Pt has no complaints at this time.
--- NOTE | 2022-09-23 05:06 | PC.NURSE ---
Addendum entered by Shawn Brewster RN 09/23/22 06:21: Pt has an at home BIPAP not a CPAP. Original Note: Pt has a hx of ALEX and wears a cpap to sleep. Pt states he is unable to sleep or get comfortable without his CPAP. Pt has brought CPAP and applies it. RN assists pt get comfortable, a blanket, call light within reach, and dim the lights.
--- NOTE | 2022-09-23 07:13 | ED.SOB ---
HPI - SOB/Dyspnea General Chief Complaint: Shortness of Breath/Dyspnea Stated Complaint: trouble breathing, anemia Time Seen by Provider: 09/22/22 19:41 Source: patient and RN notes reviewed Mode of arrival: wheelchair Limitations: no limitations History of Present Illness MD elicited complaint: shortness of breath Pertinent past history: congestive heart failure and diabetes Onset (ago): day(s) (1) Context: recent illness Timing: progressively worsening Severity: similar to previous episodes Exacerbating factors: exertion Relieving factors: oxygen Known history of: COPD and congestive heart failure Associated symptoms: chest pain Related Data Home Medications Medication Instructions Recorded Confirmed atorvastatin 10 mg tablet 10 mg PO HS 08/28/22 09/22/22 cholecalciferol (vitamin D3) 125 125 mcg PO DAILY 08/30/22 09/22/22 mcg (5,000 unit) tablet (Vitamin D3) omega 8-vvx-kuy-fish oil 60 mg-90 1 cap PO DAILY 08/30/22 09/22/22 mg-500 mg capsule (Fish Oil) vitamin B complex (B 1 tablet PO DAILY 08/30/22 09/22/22 Complex-Vitamin B12 tablet) zolpidem 10 mg tablet 10 mg PO HS 08/30/22 09/22/22 Allergies Allergy/AdvReac Type Severity Reaction Status Date / Time aspartame Allergy Severe Unknown Verified 09/22/22 20:35 cyclobenzaprine [Flexeril] Allergy Intermediate Unknown Verified 09/22/22 20:35 Penicillins Allergy Intermediate Unknown Verified 09/22/22 20:35 iohexol Allergy Hives Verified 09/22/22 20:35 [From contrast - CT, X-RAY] Review of Systems Review of Systems: All systems reviewed & are unremarkable except as noted in HPI and below Constitutional: Constitutional: Reports no additional constitutional complaints Eyes: Eyes: Reports no additional eye complaints ENT: Reports system reviewed and no additional complaints, except as documented Cardiovascular: Cardiovascular: Reports no additional cardiovascular complaints Respiratory: Respiratory: Reports no additional respiratory complaints Gastrointestinal: Gastrointestinal: Reports no additional gastrointestinal complaints Musculoskeletal: Musculoskeletal: Reports no additional musculoskeletal complaints Integumentary/Breasts: Skin/Breast: Reports system reviewed and no additional complaints, except as docu Neurologic: Reports system reviewed and no additional complaints, except as documented Psychiatric: Psychiatric: Reports no additional psychiatric complaints Endocrine: Endocrine: Reports no additional endocrine complaints Hematologic/Lymphatic: Hematologic/Lymphatic: Reports no additional hematologic/lymphatic complaints Allergic/Immunologic: Allergic/Immunologic: Reports no additional allergic/immunologic complaints PMFSH Past Medical History Medical History Acute blood loss anemia Blood thinned due to long-term anticoagulant use COVID-19 Dyslipidemia Essential hypertension Gout Grade III diastolic dysfunction Major depression, recurrent Morbid obesity Obstructive sleep apnea treated with BiPAP Occult blood in stools Pacemaker Rapid heart rate Type 2 diabetes mellitus Surgical History Surgical History History of aortic valve replacement (~2014) Hx of cholecystectomy S/P placement of cardiac pacemaker left side Family History Family History Father Kidney disease Mother Diabetes mellitus Heart disease Social History Social History Social History: Surrogate decision maker: Louisa Allred, . Code status: Full code. The patient has 2 children. The patient is retired from [email or web address] in [place]. The patient is a ex-smoker. He does not use any alcohol marijuana or illicit drugs. Smoking packs per day: 2 Smoking cigarettes per day: 40.0 Years smoked: 30 Smoking pa
--- NOTE | 2022-09-23 07:42 | PC.NURSE ---
PT IS SITTING ON CHAIR IN EXAM ROOM AT THIS TIME. BREAKFAST TRAY ORDERED. PT IS AWAITING ROOM ASSIGNMENT AT [facility]. [facility]. PT DENIES ANY NEEDS OR COMPLAINTS. WILL CONTINUE TO MONITOR.
--- NOTE | 2022-09-23 08:19 | PC.NURSE ---
PT IS EATING BREAKFAST AT THIS TIME. A RECLINER HAS BEEN BROUGHT DOWN FOR PT COMFORT. PT DENIES ANY NEEDS OR COMPLAINTS. VSS PER MONITOR. WILL CONTINUE TO MONITOR. NO UPDATE ON ROOM STATUS AT THIS TIME, PER ACCESS LINE, TO AWAIT DISCHARGES FOR TODAY.
--- NOTE | 2022-09-23 08:45 | PC.NURSE ---
PT HAS COMPLETED BREAKFAST TRAY, IS NOW IN THE RECLINER, CALL LIGHT, URINAL, WATER ARE AT BEDSIDE. VSS PER MONITOR. PT IS WATCHING TV WITHOUT DISTRESS. NAD NOTED. WILL CONTINUE TO MONITOR.
--- NOTE | 2022-09-23 10:03 | PC.NURSE ---
PT UP TO BEDSIDE COMMODE LARGE AMOUNT OF DARK FORMED STOOL NOTED. SEE TECH NOTE. PT RETURNED TO RECLINER. WILL CONTINUE TO MONITOR.
[2022-09-23] MEDS: SERTRALINE HCL 50 MG TABLET 100 MG PO (11:34)
--- NOTE | 2022-09-23 11:38 | PC.NURSE ---
PT WAS REQUESTING ANXIETY MEDICATION, ADMINISTERED ORDERED WITHOUT DIFFICULTY. AT BEDSIDE. LUNCH TRAY PROVIDED. WILL CONTINUE TO MONITOR. NAD NOTED.
--- NOTE | 2022-09-23 12:12 | PC.NURSE ---
SPOKE WITH TRANSFER CENTER, NO ETA ON BED ASSIGNMENT AT THIS TIME. PT REMAINS ON THE BOARD FOR [facility]. PT UP TO BEDSIDE COMMODE AGAIN AT THIS TIME. DARK FORMED STOOL NOTED. WILL CONTINUE TO MONITOR.
[2022-09-23] MEDS: chlordiazePOXIDE (*CRX) 10 MG CAPSULE PO (13:47)
--- NOTE | 2022-09-23 13:48 | PC.NURSE ---
HOSPITAL BED PLACED IN ROOM, PT IS ON IT AT THIS TIME. STRETCHER WAS REMOVED. ADDITIONAL MEDICATION GIVEN FOR ANXIETY REQUESTED AND ORDERED. LAB AT BEDSIDE. WILL CONTINUE TO MONITOR. PT DENIES ANY OTHER NEEDS OR COMPLAINTS AT PRESENT. WILL CONTINUE TO MONITOR.
[2022-09-23 13:57] LABS: Hemoglobin 7.3 g/dL (12.4-15.3)
--- NOTE | 2022-09-23 15:02 | PC.NURSE ---
PT REPORTS HE STOOD TO USE URINAL AND IS NOW WHEEZING. EXPIRATORY WHEEZES NOTED. ERP NOTIFIED AND PT TO RECEIVE NEB TX. AT BEDSIDE. [facility] CALLS FOR STATUS UPDATE, AND NO BED AVAILABLE AT THIS TIME. WILL CONTINUE TO MONITOR.
[2022-09-23] MEDS: IPRATROPIUM 0.5 MG/ALBUTEROL SULFATE 2.5 MG AMPUL.NEB 3 ML INHALATION (15:04)
--- NOTE | 2022-09-23 17:26 | PC.NURSE ---
dinner tray ordered, has left. pt continues to await placement. [facility] still does not have any monitored beds available, pt refuses to go to [facility], and [facility] has pt on wait list. will continue to monitor.
--- NOTE | 2022-09-23 18:11 | PC.NURSE ---
DINNER TRAY PROVIDED TO PT, HE IS CURRENTLY SITTING IN RECLINER. PT REPORTS HE IS SCARED THAT IF HE GOES TO SLEEP HE WILL STOP BREATHING, PT HAS HIS CPAP MACHINE, IS ON O2 @ 2L, NO RESP DISTRESS, SOB NOTED. NO CHANGE IN PT BED STATUS AT THIS TIME. WILL CONTINUE TO MONITOR.
--- NOTE | 2022-09-23 19:47 | PC.NURSE ---
RN greets pt and asks if he has any problems. Pt denies any pain at this time. States he feels SOB, pt is on O2 via NC, SPO2 is 100%, and breathing 22 times a minute. Pt requests supplies for oral hygiene which is supplied by RN. No other requests at this time.
--- NOTE | 2022-09-23 21:05 | PC.NURSE ---
Pt rang call light asking for medication to help sleep. Reported to ERP and offered Benadryl. Pt states he uses Benadryl at home for a sleep aid.
[2022-09-23] MEDS: diphenhydrAMINE HCl CAP 25 MG CAPSULE PO (21:09)
[2022-09-24] VITALS (105 sets, daily range): BP systolic 102–153; BP diastolic 61–122; PULSE 78–133; RESP 14–40; TEMP 36.3–36.9; O2SAT 88–100
--- NOTE | 2022-09-24 01:49 | PC.NURSE ---
Rachel from [facility] transfer center calls for a Q12 pt report. RN updates Rachel of pt's status. Rachel states no change has happened and is still waiting for a bed to open at [facility]. She states she will return a call with a bed assignment.
--- NOTE | 2022-09-24 03:40 | PC.NURSE ---
Applied new SPO2 monitor to pt's left hand. Pt denies any SOB or pain at this time. Only complains of being tired. No requests at this time. Call light within reach.
--- NOTE | 2022-09-24 05:09 | PC.NURSE ---
Pt rang call light and states he awoke from his sleep in a panic and felt like he could not catch his breath. Pt was found leaning forward breathing at a rate of 30 times a minute. The pulse ox fell off pt's finger and unable to get a reading before notifying ERP. Pt denies any pain at this time. ERP notified. ERP orders Ipratropium/Albuterol 3ml inhalation. RN reads the order and confirms with ERP.
[2022-09-24] MEDS: IPRATROPIUM 0.5 MG/ALBUTEROL SULFATE 2.5 MG AMPUL.NEB 3 ML INHALATION ×3 (05:14→19:19)
--- NOTE | 2022-09-24 05:32 | PC.NURSE ---
After receiving the Duo Neb, pt states he feels like he can breathe easier. Pt's SPO2 is 100 on the NC. Pt is breathing at 25 times a minute. Pt still denies any pain.
--- NOTE | 2022-09-24 05:39 | PC.NURSE ---
Addendum entered by Shawn Brewster RN 09/24/22 05:43: ERP ordered an H&H not CBC. Original Note: RN calls ERP to obtain orders for labs. ERP orders CMP, CBC, and Trop STAT. RN repeats orders back to ERP to confirm.
[2022-09-24 06:00] LABS: Hematocrit 25.5 % (37.0-46.0); Hemoglobin 7.8 g/dL (12.4-15.3)
[2022-09-24 06:16] LABS: Alanine Aminotransferase 13 U/L (16-63); Albumin Level 3.4 g/dL (3.4-5.0); Alkaline Phosphatase 83 U/L (46-116); Anion Gap 7 mmol/L (8-16); Aspartate Amino Transferase 21 U/L (15-37); Bilirubin,Total 0.7 mg/dL (0.00-1.00); Blood Urea Nitrogen 35 mg/dL (7-18); Carbon Dioxide 31 mmol/L (21-32); Chloride 104 mmol/L (98-108); Estimated CRCL calculation 58 ml/min; Estimated Glomerular Filt Rate 42; Glucose 148 mg/dL (70-99); Osmolality Calculated 305 mOsm/kg (285-295); Potassium 3.9 mmol/L (3.5-5.1); Sodium 142 mmol/L (136-145); Total Protein 7.4 g/dL (6.4-8.2)
[2022-09-24 06:21] LABS: Troponin I 371.1 ng/L (0.00-60.4)
--- NOTE | 2022-09-24 06:32 | PC.NURSE ---
RN calls [facility] transfer center to update on pt status and labs. RN talks to Melonie who takes information and states no update on bed status.
--- NOTE | 2022-09-24 06:40 | PC.NURSE ---
Diabetic breakfast tray has been ordered.
--- NOTE | 2022-09-24 08:37 | PC.NURSE ---
0700 resumed care of patient at this time. report from HERBER Gamez. pt sitting up in recliner , continues with nasal cannula for oxygen. shortness of breath continues. order placed for meal tray. 0745 breakfast given to pt, sitting up eating. continues with shortness of breath with any activity 0830 pt continues eating breakfast. continues with complaint of shortness of breath. discussed with dr moy regarding home meds, accu checks , breathing treatments. no new orders at this time.
--- NOTE | 2022-09-24 10:07 | PC.NURSE ---
pt up to bedside commode. unable to have bowel movement at this time. pt short of breath with exertion. back to recliner. call lucero in reach. offered assistance with bathing if needed. pt states waiting for to come.
--- NOTE | 2022-09-24 10:20 | PC.NURSE ---
[address] farzaneh thomas pt due to continued anxiety and shortness of breath. dr moy in with pt.
--- NOTE | 2022-09-24 10:25 | ECG_ITS ---
Measurements Intervals [place] Rate: 110 P: MN: 0 QRS: 1 QRSD: 152 T: 253 QT: 367 QTc: 498 Interpretive Statements ATRIAL FIBRILLATION WITH RAPID VENTRICULAR RESPONSE LEFT BUNDLE BRANCH BLOCK COMPARED TO ECG 09/22/2022 21:00:46 ATRIAL FIBRILLATION NOW PRESENT PATIENT IS MORE TACHYCARDIC AND PACEMAKER IS INHIBITED Electronically Signed On 09-25-2022 7:51:35 MARINE STRUCTURAL DESIGNER by Manuel Masterson M.D.
[2022-09-24 10:44] LABS: Basophils Absolute Auto 0.04 K/mm3 (0.00-0.10); Basophils Percent Auto 0.3 % (0.0-1.0); Eosinophils Absolute Auto 0.08 K/mm3 (0.02-0.50); Eosinophils Percent Auto 0.6 % (1.0-6.0); Hematocrit 25.2 % (37.0-46.0); Hemoglobin 7.6 g/dL (12.4-15.3); Immature Granulocyte Absolute 0.07 K/mm3 (0.00-0.00); Immature Granulocyte Percent A 0.5 % (0.0-0.0); Lymphocytes Absolute Auto 0.61 K/mm3 (1.10-4.50); Lymphocytes Percent Auto 4.6 % (18.0-42.0); Mean Corpuscular HGB Conc 30.2 g/dL (32.0-36.0); Mean Corpuscular Hemoglobin 27.3 pg (27.0-31.0); Mean Corpuscular Volume 90.6 fL (78.0-102.0); Mean Platelet Volume 11.9 fl (8.7-11.0); Monocytes Absolute Auto 1.05 K/mm3 (0.10-0.90); Neutrophils Absolute Auto 11.4 K/mm3 (1.7-7.2); Nucleated Red Blood Cells Absolute Auto 0.05 K/mm3 (0.00-0.00); Nucleated Red Blood Cells Perc 0.4 % (0-0.0); Platelet Count Result 323 K/mm3 (150-420); Red Blood Count 2.78 M/mm3 (4.70-6.10); Red Cell Distribution Width 16.2 % (11.6-14.4); White Blood Count 13.2 K/mm3 (4.8-10.8)
[2022-09-24] MEDS: IPRATROPIUM 0.5 MG/ALBUTEROL SULFATE 2.5 MG AMPUL.NEB 3 ML (10:51)
[2022-09-24] MEDS: FUROSEMIDE INJ 40 MG/4 ML VIAL IV PUSH (10:52)
[2022-09-24] MEDS: methylPREDNISolone SOD SUCC 125 MG VIAL IV PUSH (10:52)
[2022-09-24] MEDS: carvediloL 6.25 MG TABLET PO ×2 (11:04→20:45)
[2022-09-24] MEDS: SPIRONOLACTONE 12.5 MG TABLET PO (11:05)
[2022-09-24 11:06] LABS: NT Pro B Type Natriuretic Pept 4964 pg/mL (0-125)
[2022-09-24] MEDS: SERTRALINE HCL 50 MG TABLET 100 MG PO (11:16)
[2022-09-24] MEDS: ALPRAZolam (*CRX) 0.5 MG TABLET PO (11:18)
[2022-09-24] MEDS: LORazepam INJ (*CRX) 2 MG/ML VIAL 0.5 MG IV PUSH (11:32)
--- NOTE | 2022-09-24 11:43 | PC.NURSE ---
1130 pt having anxiety attack, states i cant breath, has oxygen off. pt refused. attempting to put cpap on , pt refused. verified code status , FULL code. dr moy called to room . 1132 ativan given as ordered per dr moy. 1140 pt resting, anxiety subsided. pt able to put on cpap from home. sitting up in recliner, in the room with pt.
--- NOTE | 2022-09-24 12:01 | PC.NURSE ---
1150 pt resting per recliner , cpap on.
--- NOTE | 2022-09-24 14:03 | PC.NURSE ---
1200 pt sleeping in recliner. lights out for comfort. 1300 leaving at this time. 1330 call placed to [facility] for placement per request. per cynthia, hide house supervisor, at capacity with boarders in the er. 1350 returns, informed pt and of call to [facility] and no beds available at this time. pt and voiced understanding. offered lunch tray, pt declined at this time.
--- NOTE | 2022-09-24 15:54 | PC.NURSE ---
pt sitting up in the recliner, uncomfortable . continues with shortness of breath. requested bumex as given at home. spoke with dr moy. awaiting order.
[2022-09-24] MEDS: BUMETANIDE INJ 1 MG/4 ML VIAL IV PUSH (17:01)
--- NOTE | 2022-09-24 17:52 | PC.NURSE ---
pt ate 100% of meal. sitting up in recliner, in room with pt. call lucero in reach.
--- NOTE | 2022-09-24 17:54 | PC.NURSE ---
1700 update to [facility] on pt condition, vital signs. states no beds available at [facility] at this time.
--- NOTE | 2022-09-24 18:55 | PC.NURSE ---
pt sitting up in recliner, fan on in room. call lucero in reach. continues with shortness of breath. oxygen per nasal cannula 2L.
--- NOTE | 2022-09-24 19:11 | PC.NURSE ---
pt report to justin bloom and justin tolentino. no questions or concerns.
--- NOTE | 2022-09-24 19:30 | PC.NURSE ---
This RN assumed care of patient at 1900. Pt is sitting in recliner in no apparent distress.
--- NOTE | 2022-09-24 21:00 | PC.NURSE ---
Pt resting comfortably in chair no requests at this time.
--- NOTE | 2022-09-24 22:01 | PC.NURSE ---
Pt had no request at this time. pt updated on transfer status. pt resting comfortably in chair.
--- NOTE | 2022-09-24 23:00 | PC.NURSE ---
Pt provided with ice water. pt resting comfortably in chair.
[2022-09-25] VITALS (106 sets, daily range): BP systolic 108–152; BP diastolic 54–129; PULSE 69–122; RESP 14–33; TEMP 36–36.8; O2SAT 78–100
--- NOTE | 2022-09-25 00:03 | PC.NURSE ---
pt resting comfortably in chair. no requests at this time.
[2022-09-25] MEDS: IPRATROPIUM 0.5 MG/ALBUTEROL SULFATE 2.5 MG AMPUL.NEB 3 ML INHALATION ×4 (00:19→19:05)
--- NOTE | 2022-09-25 01:06 | PC.NURSE ---
the pt reported he was to short of breath to use the urinal. the pt was placed on the commode briefly, then assisted back into the chair while on his nighttime bipap.
--- NOTE | 2022-09-25 02:02 | PC.NURSE ---
pt helped from the chair to the bed. pt resting comfortably and denied any other request.
--- NOTE | 2022-09-25 03:16 | PC.NURSE ---
pt sleeping at this time
--- NOTE | 2022-09-25 04:13 | PC.NURSE ---
Pt sleeping and in no apparent distress.
--- NOTE | 2022-09-25 05:01 | PC.NURSE ---
Pt helped from bed to chair. pt provided a glass of water. pt reports being comfortable at his time.
[2022-09-25] MEDS: carvediloL 6.25 MG TABLET PO ×2 (08:14→20:39)
[2022-09-25] MEDS: SPIRONOLACTONE 12.5 MG TABLET PO (08:15)
[2022-09-25] MEDS: SERTRALINE HCL 50 MG TABLET 100 MG PO (08:15)
--- NOTE | 2022-09-25 09:04 | PC.NURSE ---
0720 pt sitting up in recliner, complaint of pain to groin region, pt has placed baby powder yesterday. 0800 breakfast tray given. 0830 pt ate 100% of breakfast 0900 observed pt groin, red and excoriated between scrotum and upper thigh noted. spoke with dr carlos, will order nystatin. offered pt to take shower. states was bringing personal soap from home. awaiting her arrival. 0930 pt anxious and complaint of discomfort, wanting to shower now. will get bar soap for pt.
[2022-09-25 09:53] LABS: Basophils Absolute Auto 0.02 K/mm3 (0.00-0.10); Basophils Percent Auto 0.2 % (0.0-1.0); Eosinophils Absolute Auto 0.01 K/mm3 (0.02-0.50); Eosinophils Percent Auto 0.1 % (1.0-6.0); Hematocrit 23.5 % (37.0-46.0); Hemoglobin 7.1 g/dL (12.4-15.3); Immature Granulocyte Absolute 0.07 K/mm3 (0.00-0.00); Immature Granulocyte Percent A 0.6 % (0.0-0.0); Lymphocytes Absolute Auto 0.88 K/mm3 (1.10-4.50); Lymphocytes Percent Auto 7.3 % (18.0-42.0); Mean Corpuscular HGB Conc 30.2 g/dL (32.0-36.0); Mean Corpuscular Hemoglobin 27.2 pg (27.0-31.0); Mean Platelet Volume 11.2 fl (8.7-11.0); Monocytes Absolute Auto 1.17 K/mm3 (0.10-0.90); Monocytes Percent Auto 9.7 % (2.0-11.0); Neutrophils Absolute Auto 9.9 K/mm3 (1.7-7.2); Neutrophils Percent Auto 82.1 % (50.0-70.0); Nucleated Red Blood Cells Absolute Auto 0.05 K/mm3 (0.00-0.00); Nucleated Red Blood Cells Perc 0.4 % (0-0.0); Platelet Count Result 307 K/mm3 (150-420); Red Blood Count 2.61 M/mm3 (4.70-6.10); Red Cell Distribution Width 15.9 % (11.6-14.4); White Blood Count 12.1 K/mm3 (4.8-10.8)
[2022-09-25 10:18] LABS: Alanine Aminotransferase 12 U/L (16-63); Albumin Level 3.1 g/dL (3.4-5.0); Alkaline Phosphatase 69 U/L (46-116); Anion Gap 9 mmol/L (8-16); Aspartate Amino Transferase 20 U/L (15-37); Bilirubin,Total 0.5 mg/dL (0.00-1.00); Blood Urea Nitrogen 39 mg/dL (7-18); Calcium 8.9 mg/dL (8.5-10.1); Carbon Dioxide 29 mmol/L (21-32); Chloride 102 mmol/L (98-108); Estimated CRCL calculation 49 ml/min; Estimated Glomerular Filt Rate 34; Glucose 166 mg/dL (70-99); NT Pro B Type Natriuretic Pept 12660 pg/mL (0-125); Osmolality Calculated 303 mOsm/kg (285-295); Potassium 4.2 mmol/L (3.5-5.1); Sodium 140 mmol/L (136-145)
[2022-09-25 10:21] LABS: Troponin I 350.9 ng/L (0.00-60.4)
[2022-09-25] MEDS: TOLNAFTATE 1% POWDER 45 GM BTL 1 APPLIC TOPICAL ×2 (10:51→20:39)
[2022-09-25] MEDS: BUMETANIDE INJ 1 MG/4 ML VIAL IV PUSH ×2 (10:52→16:29)
--- NOTE | 2022-09-25 10:53 | PC.NURSE ---
0945 pt taken to shower per RN. extensive assist as pt unable to wash self due to shortness of breath. groin region washed/dried good. 1030 pt back to room stable. at bedside. pt appreciative of all care.
--- NOTE | 2022-09-25 12:31 | PC.NURSE ---
1100 pt sleeping in recliner, vitals stable. 1200 lunch tray given 1230 pt ate 100% of meal provided. no needs at this time
--- NOTE | 2022-09-25 14:33 | PC.NURSE ---
pt resting per recliner, call lucero in reach. went home earlier. no needs at this time
--- NOTE | 2022-09-25 16:04 | PC.NURSE ---
pt napping in recliner, in room with pt. voiced no needs at this time.
--- NOTE | 2022-09-25 16:38 | PC.NURSE ---
supper tray given. tolerated well . no concerns at this time. improved breathing noted throughout the day. still having episodes of shortness of breath.
--- NOTE | 2022-09-25 18:25 | PC.NURSE ---
pt sleeping in recliner, call lucero in reach.
--- NOTE | 2022-09-25 18:50 | PC.NURSE ---
pt awake , sitting in recliner. call lucero in reach.
--- NOTE | 2022-09-25 19:10 | PC.NURSE ---
Care resumed, pt sitting in chair, lights dimmed, states he is tired and wanting to try to sleep tonight, awaiting call for bed placement at [facility]. VSS.
--- NOTE | 2022-09-25 19:14 | PC.NURSE ---
report to justin tolentino no questions or concerns
--- NOTE | 2022-09-25 20:40 | ED.GENADULT ---
HPI - General Adult General Chief complaint: Shortness of Breath/Dyspnea Stated complaint: trouble breathing, anemia Time Seen by Provider: 09/22/22 19:41 Source: patient and RN notes reviewed Mode of arrival: wheelchair Limitations: no limitations History of Present Illness HPI narrative: I TOOK OVER FROM THE PREVIOUS PROVIDER WHILE THE PATIENT IS AWAITING TRANSPORTATION TO [facility]: HE HAS BEEN ACCEPTED ON 09/22/2022 BUT A BED IS NOT AVAILABLE YET. PLEASE REFER TO THE PREVIOUS NOTES FOR FURTHER DETAILS. In brief, the patient is a 67-year-old male whose hemoglobin last September 2021 was 12.4.? Hemoglobin in May was 10.8-11.1 range.? Patient presented on 08/29/2022 with chest pain, SOB and found to have a hemoglobin of 6.4.? He was admitted to [facility] 08/29-. His stools were guaiac positive with dark stools.? Protonix started.? He has been transfused 2 units of PRBC and hemoglobin has climbed to 7-8 range and remained stable.? Symptoms improved.? His Xarelto was held.? Troponin mildly elevated but flat at 0.04 felt related to severe anemia and/or renal insufficiency. He was continued on his Coreg, statin. Not likely to be acute coronary ischemia. CXR showing?likely mild congestive heart failure with cardiomegaly, pulmonary vascular congestion and mild pulmonary edema in the lower lung zones.?Echo 04/13/22?with EF40-45% and indeterminate diastolic function. Lasix IV given after transfusion. Repeat CXR showing improvement. Not on O2 and remained euvolemic. Had acute on chronic diastolic and systolic CHF related to severe anemia.?Creatinine was normal last year but was 1.5 in May.? Creatinine 1.75 on admission at the outside hospital and about the same on recheck.? Could be related to over-diuresis or possibly ATN from the anemia.?Bumex was continued but lisinopril and spironolactone held.?Renal ultrasound showed bilateral atrophy. GI was consulted.? EGD showing gastritis and colonoscopy showing internal hemorrhoids. No clear source of blood loss. Plan for capsule endoscopy. He overall did well and was able to be discharged home on 08/31/22 He then returned to the emergency room on 09/18/2022. His hemoglobin at that time was 5.8 with hematocrit of 19.3. He received 3 units of packed red blood cells. His stools were again heme-positive. He was on Xarelto and aspirin. Those were again held. He was sent home as he declined admission transfer elsewhere. He then re-presented again on 09/22/2022 with hemoglobin of 5.9 with hematocrit of 19.9. He did receive 2 units of packed red blood cells. His BUN on presentation was 48 with a creatinine of 2.1. Initial troponin was 379 high sensitivity, initial BNP 2733. Subsequent troponins have been 371 and then 351 today. Subsequent BNP has been 4900 and then 12 700 today. He has been started on his Bumex intravenously and received 2 doses yesterday another 2 doses of 1 mg of Bumex today. Medications include Coreg 6.25 mg p.o. b.i.d., Aldactone 12.5 mg daily, DuoNeb q.6 hours, and Bumex 1 mg IV b.i.d., as well as sertraline 100 mg daily. He is diabetic but is glucose has been stable. His aspirin and Xarelto has been held. Comorbidities include atrial fibrillation, congestive heart failure acute on chronic, diabetes, COPD, presents obstructive sleep apnea on CPAP, hyperlipidemia. Status post surgical bioprosthetic aortic valve replacement, status post pacemaker implantation. Related Data Home Medications Medication Instructions Recorded Confirmed atorvastatin 10 mg tablet 10 mg PO HS 08/28/22 09/22/22 cholecalciferol (vitamin D3) 125 125 mcg PO DAILY 08/30/22 09/22/22 mcg (5,000 unit) tablet (Vitamin D3) omega 5-gfr-plr-fish oil 60 mg-90 1 cap PO DAILY 08/30/22 09/22/22 mg-500 mg capsule (Fish Oil) vitamin B complex (B 1 tablet PO DAILY 08/30/22 09/22/22 Complex-Vitamin B12 tablet) zolpidem 10 mg tablet 10 mg PO HS 08/30/22 09/22/22 Allergies Allerg
--- NOTE | 2022-09-25 20:43 | PC.NURSE ---
Pt resting c eyes closed and CPAP in place, ERP in to assess pt and he awakens easily, reports his breathing is some better, noted RR even and nonlabored. WIll call for update on bed assignment and placement to E.
[2022-09-25] MEDS: SODIUM CHLORIDE 0.9% IV 250 ML 30 ML IV CONT (21:18)
[2022-09-25 21:26] LABS: Glucose Point of Care 150 mg/dl (65-105)
--- NOTE | 2022-09-25 21:29 | PC.NURSE ---
BS glucose at 150, no new orders received. Pt resting c POC discussed c pt and ERP. Pt resting c CPAP in place. Awaiting 1st Unit PRBC. Awaiting call back from [facility].
--- NOTE | 2022-09-25 22:00 | PC.NURSE ---
Pt signed blood transfusion form for another 2U to be given per order. Pts. VSS, pt assisted to commode to urinate, and back to chair in postition of comfort c CPAP reapplied.
--- NOTE | 2022-09-25 23:55 | PC.NURSE ---
Pt sitting in chair, awake, wanting something to help him rest/sleep. Order obtained from ERP, 1U PRBC infusing per order. VSS.
[2022-09-26] VITALS (57 sets, daily range): BP systolic 117–143; BP diastolic 56–126; PULSE 72–107; RESP 16–33; TEMP 36.1–36.9; O2SAT 73–100
[2022-09-26] MEDS: BUMETANIDE INJ 1 MG/4 ML VIAL IV PUSH (00:10)
[2022-09-26] MEDS: IPRATROPIUM 0.5 MG/ALBUTEROL SULFATE 2.5 MG AMPUL.NEB 3 ML INHALATION ×2 (00:13→07:06)
[2022-09-26] MEDS: diphenhydrAMINE HCl CAP 25 MG CAPSULE 50 MG PO (00:22)
--- NOTE | 2022-09-26 00:35 | PC.NURSE ---
Lab here to redraw p transfusion. VSS, pt remains sitting in chair, POC discussed to try to call again for admission to either [place] or [facility] in AM. Continuing to monitor.
[2022-09-26 00:44] LABS: Hematocrit 28.6 % (37.0-46.0); Hemoglobin 8.6 g/dL (12.4-15.3)
--- NOTE | 2022-09-26 00:49 | PC.NURSE ---
ERP Dr Ken notified of pt updated HGB of 8.6, orders to hold on 2nd unit. Pt informed on decision, VSS, sitting in chair watching TV. Continuing to monitor.
--- NOTE | 2022-09-26 01:26 | PC.NURSE ---
Pt assisted from chair back to bed, CPAP replaced, pt is SOB c exertion, RR 28 and tachypneic c movement around room, breathing somewhat labored, at rest pt can return to baseline, CPAP in place, pt propped to position of comfort c HOB elevated. Continuing to monitor.
--- NOTE | 2022-09-26 03:12 | PC.NURSE ---
Pt sleeping, CPAP in place, RR even and nonlabored a this time, SPO2 96%, paced rhythm on monitor.
--- NOTE | 2022-09-26 03:54 | PC.NURSE ---
Pt sitting up side of bed, unable to get comfortable to sleep, Pt. RR is slightly labored, he takes off CPAP frequently and replaces c NC O2 at 4L. Pt has dim. b.s. bilat c poor air exchange and becomes SOB c any exertion. Pt assisted to stand position and walks to chair c minimal assist. Pt repositioned for comfort c pillows, lights dimmed, continuing to monitor, call lucero at pt side.
--- NOTE | 2022-09-26 05:15 | PC.NURSE ---
Pt resting in chair c CPAP on , eyes closed, no changes, call lucero at side.
--- NOTE | 2022-09-26 06:25 | PC.NURSE ---
Pt resting c eyes closed, NC O2 on at this time as pt has removed his CPAP. VSS, pt awakens easily, no needs at this time. Continuing to monitor and awaiting bed placement. Monitor showing paced rhythm.
--- NOTE | 2022-09-26 07:10 | PC.NURSE ---
Report given to Stefania Ferrer. Pt resting at this time.
--- NOTE | 2022-09-26 07:42 | PC.NURSE ---
RN and ERP spoke with patient he is in agreeable to try to go to another hospital since his BNP is worsening and [facility] still doesn't have any beds.
[2022-09-26 07:59] LABS: Basophils Absolute Auto 0.05 K/mm3 (0.00-0.10); Basophils Percent Auto 0.4 % (0.0-1.0); Eosinophils Absolute Auto 0.32 K/mm3 (0.02-0.50); Eosinophils Percent Auto 2.5 % (1.0-6.0); Hematocrit 28.8 % (37.0-46.0); Hemoglobin 8.5 g/dL (12.4-15.3); Immature Granulocyte Absolute 0.06 K/mm3 (0.00-0.00); Immature Granulocyte Percent A 0.5 % (0.0-0.0); Lymphocytes Absolute Auto 1.66 K/mm3 (1.10-4.50); Lymphocytes Percent Auto 13.1 % (18.0-42.0); Mean Corpuscular HGB Conc 29.5 g/dL (32.0-36.0); Mean Corpuscular Hemoglobin 27.4 pg (27.0-31.0); Mean Corpuscular Volume 92.9 fL (78.0-102.0); Mean Platelet Volume 12.3 fl (8.7-11.0); Monocytes Absolute Auto 1.29 K/mm3 (0.10-0.90); Monocytes Percent Auto 10.2 % (2.0-11.0); Neutrophils Absolute Auto 9.3 K/mm3 (1.7-7.2); Neutrophils Percent Auto 73.3 % (50.0-70.0); Nucleated Red Blood Cells Absolute Auto 0.06 K/mm3 (0.00-0.00); Nucleated Red Blood Cells Perc 0.5 % (0-0.0); Platelet Count Result 202 K/mm3 (150-420); Red Cell Distribution Width 15.9 % (11.6-14.4); White Blood Count 12.6 K/mm3 (4.8-10.8)
[2022-09-26 08:25] LABS: Alanine Aminotransferase 13 U/L (16-63); Albumin Level 3.1 g/dL (3.4-5.0); Alkaline Phosphatase 72 U/L (46-116); Anion Gap 9 mmol/L (8-16); Aspartate Amino Transferase 22 U/L (15-37); Bilirubin,Total 0.6 mg/dL (0.00-1.00); Blood Urea Nitrogen 45 mg/dL (7-18); Calcium 8.7 mg/dL (8.5-10.1); Carbon Dioxide 26 mmol/L (21-32); Chloride 102 mmol/L (98-108); Estimated CRCL calculation 53 ml/min; Estimated Glomerular Filt Rate 38; Glucose 115 mg/dL (70-99); NT Pro B Type Natriuretic Pept 6940 pg/mL (0-125); Osmolality Calculated 296 mOsm/kg (285-295); Potassium 4.1 mmol/L (3.5-5.1); Sodium 137 mmol/L (136-145); Total Protein 7.1 g/dL (6.4-8.2)
[2022-09-26 08:29] LABS: Troponin I 365.5 ng/L (0.00-60.4)
[2022-09-26] MEDS: carvediloL 6.25 MG TABLET PO (09:16)
[2022-09-26] MEDS: PANTOPRAZOLE SODIUM IV 40 MG VIAL IV PUSH (09:16)
[2022-09-26] MEDS: SPIRONOLACTONE 12.5 MG TABLET PO (09:17)
[2022-09-26] MEDS: SERTRALINE HCL 50 MG TABLET 100 MG PO (09:17)
[2022-09-26] MEDS: MAGNESIUM OXIDE 400 MG TABLET PO (09:17)
[2022-09-26] MEDS: BUMETANIDE INJ 1 MG/4 ML VIAL 2 MG IV PUSH (09:19)
[2022-09-26] MEDS: TOLNAFTATE 1% POWDER 45 GM BTL 1 APPLIC TOPICAL (09:21)
[2022-09-26] MEDS: lisinopriL 20 MG TABLET PO (09:46)
[2022-09-26] MEDS: CHOLECALCIFEROL 1,000 UNITS TABLET 5000 UNITS PO (09:47)
[2022-09-26] MEDS: metFORMIN HCL 500 MG TABLET 1000 MG PO (09:47)
== END 2022-09-26 11:33 | disposition short-term general hospital (02) ==
PROVIDERS: Emergency Medicine; Emergency Provider Emergency Medicine; PCP Nurse Practitioner Family
DX: K92.2 Gastrointestinal hemorrhage, unspecified (principal); I21.4 Non-ST elevation (NSTEMI) myocardial infarction; Z20.822 Contact with and (suspected) exposure to COVID-19; E78.5 Hyperlipidemia, unspecified; I10 Essential (primary) hypertension; E11.9 Type 2 diabetes mellitus without complications
CPT/HCPCS: 36415; 36430; 36600; 71045; 71250; 74176; 80053; 81001; 82805; 82948; 83735; 83880; 84484; 85014; 85018; 85025; 86850; 86900; 86901; 86920; 93005; 94640; 96361; 96374; 96375; 96376; 99285; A9270; C9113; J1940; J2060; J2930; J7050; P9016; U0003; U0005

== ENCOUNTER 2022-10-08 11:00 | Outpatient (CLI) | payer OTHER, MEDICARE, SELFPAY ==
[2022-10-08 11:24] LABS: Basophils Absolute Auto 0.05 K/mm3 (0.00-0.10); Basophils Percent Auto 0.6 % (0.0-1.0); Eosinophils Absolute Auto 0.17 K/mm3 (0.02-0.50); Hematocrit 32.7 % (37.0-46.0); Hemoglobin 9.9 g/dL (12.4-15.3); Immature Granulocyte Absolute 0.03 K/mm3 (0.00-0.00); Immature Granulocyte Percent A 0.4 % (0.0-0.0); Lymphocytes Absolute Auto 1.36 K/mm3 (1.10-4.50); Mean Corpuscular HGB Conc 30.3 g/dL (32.0-36.0); Mean Corpuscular Hemoglobin 27.7 pg (27.0-31.0); Mean Corpuscular Volume 91.3 fL (78.0-102.0); Mean Platelet Volume 11.8 fl (8.7-11.0); Monocytes Absolute Auto 0.79 K/mm3 (0.10-0.90); Monocytes Percent Auto 9.3 % (2.0-11.0); Neutrophils Absolute Auto 6.1 K/mm3 (1.7-7.2); Neutrophils Percent Auto 71.7 % (50.0-70.0); Platelet Count Result 262 K/mm3 (150-420); Red Blood Count 3.58 M/mm3 (4.70-6.10); Red Cell Distribution Width 18.8 % (11.6-14.4); White Blood Count 8.5 K/mm3 (4.8-10.8)
[2022-10-08 11:54] LABS: Alanine Aminotransferase 22 U/L (16-63); Albumin Level 3.5 g/dL (3.4-5.0); Alkaline Phosphatase 83 U/L (46-116); Anion Gap 10 mmol/L (8-16); Aspartate Amino Transferase 22 U/L (15-37); Bilirubin,Total 0.5 mg/dL (0.00-1.00); Blood Urea Nitrogen 29 mg/dL (7-18); Calcium 8.8 mg/dL (8.5-10.1); Carbon Dioxide 30 mmol/L (21-32); Chloride 103 mmol/L (98-108); Estimated Glomerular Filt Rate 39; Glucose 132 mg/dL (70-99); Osmolality Calculated 303 mOsm/kg (285-295); Potassium 3.6 mmol/L (3.5-5.1); Sodium 143 mmol/L (136-145); Total Protein 7.2 g/dL (6.4-8.2)
== END 2022-10-08 11:01 | disposition home or self-care (01) ==
LOC: CHSLAB 11:00
PROVIDERS: PCP Nurse Practitioner Family; Visit Provider Nurse Practitioner Family
DX: E87.6 Hypokalemia (principal); D62 Acute posthemorrhagic anemia
CPT/HCPCS: 36415; 80053; 85025

== ENCOUNTER 2022-11-05 17:37 | Emergency (ER) | payer OTHER, MEDICARE, SELFPAY ==
[2022-11-05] VITALS (18 sets, daily range): BP systolic 99–154; BP diastolic 44–80; PULSE 60–86; RESP 16–22; TEMP 36.3–37.2; O2SAT 93–100
--- NOTE | ~2022-11-05 | XR_ITS ---
EXAMINATION: XR chest 1V portable DATE: 11/05/2022 19:18 INDICATION: Dyspnea. Dizziness. TECHNIQUE: A single frontal view of the chest was obtained. COMPARISON: Chest single view 09/25/2022, chest CT 09/22/2022 FINDINGS: There is a small right pleural effusion. There are airspace opacities at right lung base, l ikely atelectasis. No pneumothorax. Cardiomegaly is noted. Median sternotomy wires are noted. Epicard ial pacer wires are noted. There is a left chest wall pacer with leads in the right atrium and right ventricle. IMPRESSION: 1. Small right pleural effusion with interval improvement. 2. Cardiomegaly. Reviewed, dictated and finalized at location A. COMPOSER
--- NOTE | 2022-11-05 18:37 | ECG_ITS ---
Measurements Intervals [place] Rate: 69 P: DC: 0 QRS: -74 QRSD: 216 T: 112 QT: 511 QTc: 549 Interpretive Statements ELECTRONIC VENTRICULAR PACEMAKER BASELINE ARTIFACT- I, II, III, AVR, AVL, AVF, V1 NO FURTHER INTERPRETATION IS POSSIBLE ATYPICAL ECG COMPARED TO ECG 09/24/2022 10:43:50 VENTRICULAR PACEMAKER NOW PRESENT Electronically Signed On 11-06-2022 7:48:54 ESCROW OFFICER by Romero Echavarria D.O.
[2022-11-05 19:09] LABS: Basophils Absolute Auto 0.03 K/mm3 (0.00-0.10); Basophils Percent Auto 0.3 % (0.0-1.0); Eosinophils Absolute Auto 0.03 K/mm3 (0.02-0.50); Eosinophils Percent Auto 0.3 % (1.0-6.0); Immature Granulocyte Absolute 0.05 K/mm3 (0.00-0.00); Immature Granulocyte Percent A 0.5 % (0.0-0.0); Lymphocytes Absolute Auto 0.86 K/mm3 (1.10-4.50); Lymphocytes Percent Auto 9.3 % (18.0-42.0); Mean Corpuscular HGB Conc 28.3 g/dL (32.0-36.0); Mean Corpuscular Hemoglobin 26.7 pg (27.0-31.0); Mean Corpuscular Volume 94.4 fL (78.0-102.0); Mean Platelet Volume 12.3 fl (8.7-11.0); Monocytes Absolute Auto 0.68 K/mm3 (0.10-0.90); Monocytes Percent Auto 7.4 % (2.0-11.0); Neutrophils Absolute Auto 7.6 K/mm3 (1.7-7.2); Neutrophils Percent Auto 82.2 % (50.0-70.0); Nucleated Red Blood Cells Absolute Auto 0.08 K/mm3 (0.00-0.00); Nucleated Red Blood Cells Perc 0.9 % (0-0.0); Platelet Count Result 261 K/mm3 (150-420); Red Blood Count 1.95 M/mm3 (4.70-6.10); Red Cell Distribution Width 16.7 % (11.6-14.4); White Blood Count 9.2 K/mm3 (4.8-10.8)
[2022-11-05 19:30] LABS: INR 1.5; Partial Thromboplastin Time 27.6 SEC (23.90-30.70); Prothrombin Time 16.1 Seconds (9.50-12.10)
[2022-11-05 19:36] LABS: Alanine Aminotransferase 17 U/L (16-63); Albumin Level 3.2 g/dL (3.4-5.0); Alkaline Phosphatase 74 U/L (46-116); Anion Gap 12 mmol/L (8-16); Aspartate Amino Transferase 31 U/L (15-37); Bilirubin,Total 0.4 mg/dL (0.00-1.00); Blood Urea Nitrogen 61 mg/dL (7-18); Calcium 8.7 mg/dL (8.5-10.1); Carbon Dioxide 25 mmol/L (21-32); Chloride 101 mmol/L (98-108); Estimated CRCL calculation 45 ml/min; Estimated Glomerular Filt Rate 31; Glucose 111 mg/dL (70-99); Magnesium 2.8 mg/dL (1.8-2.4); NT Pro B Type Natriuretic Pept 4725 pg/mL (0-125); Osmolality Calculated 304 mOsm/kg (285-295); Sodium 138 mmol/L (136-145); Total Protein 7.1 g/dL (6.4-8.2)
[2022-11-05 19:39] LABS: Hematocrit 18.4 % (37.0-46.0); Hemoglobin 5.2 g/dL (12.4-15.3)
[2022-11-05 19:40] LABS: D Dimer 0.81 mg/L (0.19-0.50)
[2022-11-05 19:42] LABS: Troponin I 108.1 ng/L (0.00-60.4)
[2022-11-05] MEDS: IPRATROPIUM 0.5 MG/ALBUTEROL SULFATE 2.5 MG AMPUL.NEB 3 ML INHALATION (19:44)
[2022-11-05] MEDS: SODIUM CHLORIDE 0.9% 3 ML NEB FOR INHALATION (19:44)
[2022-11-05] MEDS: SODIUM CHLORIDE 0.9% IV 500 ML 999 ML IV CONT (19:45)
[2022-11-05 20:27] LABS: SARS-CoV-2 RNA PCR Negative (Negative)
[2022-11-05 20:29] LABS: Occult Blood Positive (Negative)
--- NOTE | 2022-11-05 20:30 | ED.SOB ---
HPI - SOB/Dyspnea General Chief Complaint: Shortness of Breath/Dyspnea <Manuel Sandoval MD - Last Filed: 11/06/22 07:09> Stated Complaint: weakness, dizzy, pale, trouble breathing <Manuel Sandoval MD - Last Filed: 11/06/22 07:09> Time Seen by Provider: 11/05/22 18:12 <Manuel Sandoval MD - Last Filed: 11/06/22 07:09> Source: patient and family <Manuel Sandoval MD - Last Filed: 11/06/22 07:09> Mode of arrival: wheelchair <Manuel Sandoval MD - Last Filed: 11/06/22 07:09> Limitations: physical limitation <Manuel Sandoval MD - Last Filed: 11/06/22 07:09> History of Present Illness HPI Narrative: this is a 67-year-old gentleman with a history of GI bleed with unknown source of bleeding presents with weakness shortness of breath fatigue, denies chest pain no fever chills. Patient was seen in our facility in the ER approximately 1 month ago and had similar episode was transferred to [facility] in [place] had an upper and lower endoscopy performed as well as capsule endoscopy which not did not reveal the source of GI bleed. Patient has a history of AFib diastolic dysfunction stage III with hypertension has bicuspid aortic valve replacement performed 2014, does have history of chronic kidney disease. <Manuel Sandoval MD - Last Filed: 11/06/22 07:09> MD elicited complaint: shortness of breath <Manuel Sandoval MD - Last Filed: 11/06/22 07:09> Pertinent past history: COPD, congestive heart failure and diabetes <Manuel Sandoval MD - Last Filed: 11/06/22 07:09> Onset (ago): week(s) <Manuel Sandoval MD - Last Filed: 11/06/22 07:09> Context: recent illness <Manuel Sandoval MD - Last Filed: 11/06/22 07:09> Timing: constant <Manuel Sandoval MD - Last Filed: 11/06/22 07:09> Severity: moderate <Manuel Sandoval MD - Last Filed: 11/06/22 07:09> Exacerbating factors: lying flat and exertion <Manuel Sandoval MD - Last Filed: 11/06/22 07:09> Relieving factors: rest <Manuel Sandoval MD - Last Filed: 11/06/22 07:09> Known history of: COPD, congestive heart failure and diabetes <Manuel Sandoval MD - Last Filed: 11/06/22 07:09> Associated symptoms: denies other symptoms <Manuel Sandoval MD - Last Filed: 11/06/22 07:09> Related Data Home Medications: Home Medications Medication Instructions Recorded Confirmed cholecalciferol (vitamin D3) 125 125 mcg PO DAILY 08/30/22 11/05/22 mcg (5,000 unit) tablet (Vitamin D3) omega 5-myo-igr-fish oil 60 mg-90 1 cap PO DAILY 08/30/22 11/05/22 mg-500 mg capsule (Fish Oil) vitamin B complex (B 1 tablet PO DAILY 08/30/22 11/05/22 Complex-Vitamin B12 tablet) zolpidem 10 mg tablet 10 mg PO HS 08/30/22 11/05/22 allopurinol 100 mg tablet 100 mg PO DAILY 10/05/22 11/05/22 ferrous sulfate 325 mg (65 mg 325 mg PO DAILY 10/05/22 11/05/22 iron) tablet pantoprazole 40 mg tablet,delayed 40 mg PO BID 10/05/22 11/05/22 release carvedilol 6.25 mg tablet 6.25 mg PO BID 10/29/22 11/05/22 lisinopril 10 mg tablet 10 mg PO DAILY 10/29/22 11/05/22 <Manuel Sandoval MD - Last Filed: 11/06/22 07:09> Allergies/Adverse Reactions: Allergies Allergy/AdvReac Type Severity Reaction Status Date / Time aspartame Allergy Severe Unknown Verified 11/05/22 18:45 cyclobenzaprine [Flexeril] Allergy Intermediate Unknown Verified 11/05/22 18:45 Penicillins Allergy Intermediate Unknown Verified 11/05/22 18:45 iohexol Allergy Hives Verified 11/05/22 18:45 [From contrast - CT, X-RAY] <Manuel Sandoval MD - Last Filed: 11/06/22 07:09> Review of Systems Review of Systems: All systems reviewed & are unremarkable except as noted in HPI and below <Manuel Sandoval MD - Last Filed: 11/06/22 07:09> [facility] Past Medical History Medical History: Medical History Acute blood loss anemia Bl
[2022-11-05] MEDS: SODIUM CHLORIDE 0.9% IV 250 ML 30 ML IV CONT (20:40)
[2022-11-05 23:14] LABS: Hematocrit 20.6 % (37.0-46.0)
[2022-11-05 23:15] LABS: Hemoglobin 5.9 g/dL (12.4-15.3)
[2022-11-06] VITALS (25 sets, daily range): BP systolic 106–131; BP diastolic 50–65; PULSE 66–72; RESP 16–20; TEMP 36.3–37.2; O2SAT 96–100
[2022-11-06] MEDS: FUROSEMIDE INJ 40 MG/4 ML VIAL IV PUSH ×2 (01:44→20:56)
[2022-11-06 01:59] LABS: Hematocrit 22.3 % (37.0-46.0)
[2022-11-06 02:03] LABS: Hemoglobin 6.6 g/dL (12.4-15.3)
[2022-11-06 06:26] LABS: Hematocrit 25.6 % (37.0-46.0); Hemoglobin 7.7 g/dL (12.4-15.3); Mean Corpuscular HGB Conc 30.1 g/dL (32.0-36.0); Mean Corpuscular Hemoglobin 28.3 pg (27.0-31.0); Mean Corpuscular Volume 94.1 fL (78.0-102.0); Mean Platelet Volume 11.9 fl (8.7-11.0); Platelet Count Result 257 K/mm3 (150-420); Red Blood Count 2.72 M/mm3 (4.70-6.10); Red Cell Distribution Width 15.5 % (11.6-14.4); White Blood Count 8.9 K/mm3 (4.8-10.8)
[2022-11-06 06:45] LABS: Alanine Aminotransferase 34 U/L (16-63); Alkaline Phosphatase 74 U/L (46-116); Anion Gap 10 mmol/L (8-16); Aspartate Amino Transferase 36 U/L (15-37); Bilirubin,Total 0.4 mg/dL (0.00-1.00); Blood Urea Nitrogen 64 mg/dL (7-18); Calcium 8.6 mg/dL (8.5-10.1); Carbon Dioxide 27 mmol/L (21-32); Chloride 102 mmol/L (98-108); Estimated CRCL calculation 43 ml/min; Estimated Glomerular Filt Rate 30; Glucose 105 mg/dL (70-99); Osmolality Calculated 306 mOsm/kg (285-295); Potassium 5.1 mmol/L (3.5-5.1); Sodium 139 mmol/L (136-145); Total Protein 6.7 g/dL (6.4-8.2)
[2022-11-06 06:46] LABS: Troponin I 103.8 ng/L (0.00-60.4)
--- NOTE | 2022-11-06 06:47 | PC.NURSE ---
BLOOD PRODUCT [id number] STARTED 2034 ENDED AT 2330, RECEIVED 350ML
--- NOTE | 2022-11-06 08:23 | PCDIET ---
Breakfast meal provided to patient 0800
[2022-11-06] MEDS: SPIRONOLACTONE 12.5 MG TABLET PO (08:31)
[2022-11-06] MEDS: PANTOPRAZOLE 40 MG TABLET PO ×2 (08:31→20:52)
[2022-11-06] MEDS: BUMETANIDE 1 MG TABLET 2 MG PO (08:31)
[2022-11-06] MEDS: allopurinoL 100 MG TABLET PO (08:31)
[2022-11-06] MEDS: SERTRALINE HCL 50 MG TABLET 100 MG PO (08:31)
--- NOTE | 2022-11-06 09:00 | PC.NURSE ---
0900 pt had breakfast and continues to sit up in chair pts home meds were ordered and started pt has no complaints this am states he is feeling much better
[2022-11-06] MEDS: LORazepam (*CRX) 1 MG TABLET PO ×2 (15:10→23:56)
--- NOTE | 2022-11-06 15:31 | PC.NURSE ---
1000 Siddiqui called aa
--- NOTE | 2022-11-06 15:32 | PC.NURSE ---
1000 Artur called for update on vitals and pt remains on waiting list and they will call back this evening for update
[2022-11-06 17:28] LABS: Hematocrit 25.3 % (37.0-46.0); Hemoglobin 7.7 g/dL (12.4-15.3)
[2022-11-06 18:06] LABS: Anion Gap 11 mmol/L (8-16); Blood Urea Nitrogen 61 mg/dL (7-18); Calcium 8.6 mg/dL (8.5-10.1); Carbon Dioxide 26 mmol/L (21-32); Chloride 101 mmol/L (98-108); Estimated CRCL calculation 46 ml/min; Estimated Glomerular Filt Rate 32; Glucose 135 mg/dL (70-99); NT Pro B Type Natriuretic Pept 4531 pg/mL (0-125); Osmolality Calculated 305 mOsm/kg (285-295); Potassium 4.9 mmol/L (3.5-5.1); Sodium 138 mmol/L (136-145)
--- NOTE | 2022-11-06 18:46 | PC.NURSE ---
1700 pt ate dinner 100% gudelia well comes and goes to visit pt has had not complaints pt given ativan in afternoon for anxiety pt resting quietly with not complaints
--- NOTE | 2022-11-06 19:32 | PC.NURSE ---
REPORT FROM HERBER BARNETT. PT HAS LEFT FOR THE EVENING. PT IS SITTING UP ON BED, SKIN W-D-P. NAD NOTED. PT IS REQUESTING HIS NIGHT TIME MEDICATION AT THIS TIME, DENIES ANY OTHER NEEDS OR COMPLAINTS. WILL CONTINUE TO MONITOR AND TO ADMINISTER MEDICATION ORDERED.
[2022-11-06] MEDS: ZOLPIDEM TARTRATE (*CRX) 5 MG TABLET PO (19:36)
--- NOTE | 2022-11-06 19:45 | PC.NURSE ---
SUPPLIES PROVIDED FOR PT TO BRUSH HIS TEETH, PT HAS BEEN MEDICATED REQUESTED. VSS PER MONITOR. ROOM HAS BEEN ORGANIZED, FRESH URINAL PROVIDED, PT HAS 400 ML URINE OUTPUT NOTED. IV SITE IS PATENT AT THIS TIME. WILL CONTINUE TO MONITOR.
[2022-11-06] MEDS: IPRATROPIUM 0.5 MG/ALBUTEROL SULFATE 2.5 MG AMPUL.NEB 3 ML INHALATION (21:04)
--- NOTE | 2022-11-06 21:08 | PC.NURSE ---
PT WAS SITTING UP ON BED WITH CPAP IN PLACE. PT REQUESTED NEB TX, ERP NOTIFIED AND PT IS RECEIVING TX AT THIS TIME. MEDICATIONS WERE ADMINISTERED ORDERED WITHOUT DIFFICULTY. LIGHTS DIMMED. PT HAS ANOTHER 200ML URINE OUTPUT NOTED AND EMPTIED. PT DENIES ANY OTHER NEEDS OR COMPLAINTS. WILL CONTINUE TO MONITOR.
--- NOTE | 2022-11-06 23:47 | PCDIET ---
PT IS SITTING UP ON BED TEXTING ON CELL. NAD NOTED. PT REPORTS HE CANNOT SLEEP, REQUESTING ATIVAN. ERP IS NOTIFIED. ANOTHER 1000ML URINE OUTPUT NOTED AT THIS TIME. VSS PER MONITOR. NAD NOTED. WILL CONTINUE TO MONITOR.
--- NOTE | 2022-11-06 23:57 | PC.NURSE ---
PT STATES HE WOULD LIKE TO GO HOME, HOWEVER DOES NOT WANT TO SIGN AMA. PT IS AGREEABLE TO STAY FOR BED AT [facility], AT THIS TIME. PT DENIES ANY BLOOD NOTED IN STOOLS SINCE HE HAS BEEN HERE STATING, I HAVEN'T WENT . NAD NOTED. PT IS ADVISED OF PLAN OF CARE. WILL CONTINUE TO MONITOR.
[2022-11-07] VITALS (7 sets, daily range): BP systolic 106–122; BP diastolic 54–82; PULSE 69–86; RESP 18–20; TEMP 36.6–36.8; O2SAT 97–100
--- NOTE | 2022-11-07 01:47 | PC.NURSE ---
PT IS SITTING UP IN RECLINER, HAD SPILT HIS URINAL AND GLASS OF WATER. ROOM HAS BEEN CLEANED, HSKP AT BEDSIDE AT THIS TIME. PT HAS EATEN 4 CUPS OF YELLOW AND 2 APPLESAUCE CUPS THAT HIS HAD BROUGHT IN FROM HOME. PT DENIES ANY NEEDS OR COMPLAINTS AT THIS TIME. PT HAS NOT SLEPT THUS FAR TONIGHT. ENCOURAGED PT TO RETURN TO BED AND ATTEMPT SLEEPING. WILL CONTINUE TO MONITOR.
--- NOTE | 2022-11-07 03:30 | PC.NURSE ---
PT IS CURRENTLY SLEEPING ON BED WITH CPAP IN PLACE. NAD NOTED. WILL CONTINUE TO MONITOR.
--- NOTE | 2022-11-07 05:46 | PC.NURSE ---
PT WAS SLEEPING WITHOUT DISTRESS UNTIL LAB ARRIVED AT BEDSIDE FOR AM DRAW. NAD NOTED. WILL CONTINUE TO MONITOR.
[2022-11-07 05:52] LABS: Hematocrit 23.8 % (37.0-46.0); Hemoglobin 7.2 g/dL (12.4-15.3)
[2022-11-07 06:14] LABS: Anion Gap 8 mmol/L (8-16); Blood Urea Nitrogen 60 mg/dL (7-18); Calcium 8.6 mg/dL (8.5-10.1); Carbon Dioxide 29 mmol/L (21-32); Chloride 102 mmol/L (98-108); Estimated CRCL calculation 47 ml/min; Estimated Glomerular Filt Rate 33; Glucose 104 mg/dL (70-99); NT Pro B Type Natriuretic Pept 5016 pg/mL (0-125); Osmolality Calculated 304 mOsm/kg (285-295); Potassium 4.6 mmol/L (3.5-5.1); Sodium 139 mmol/L (136-145)
--- NOTE | 2022-11-07 06:59 | PC.NURSE ---
REPORT TO HERBER BARNETT. PT IS RESTING AT THIS TIME.
[2022-11-07] MEDS: allopurinoL 100 MG TABLET PO (09:00)
[2022-11-07] MEDS: PANTOPRAZOLE 40 MG TABLET PO ×2 (09:39→22:25)
[2022-11-07] MEDS: SPIRONOLACTONE 12.5 MG TABLET PO (09:39)
[2022-11-07] MEDS: SERTRALINE HCL 50 MG TABLET 100 MG PO (09:39)
[2022-11-07] MEDS: BUMETANIDE 1 MG TABLET 2 MG PO (09:39)
[2022-11-07] MEDS: POTASSIUM CHLORIDE 20 MEQ TABLET PO (09:39)
--- NOTE | 2022-11-07 12:00 | PC.NURSE ---
1200 Dr Sandoval spoke with pt and and updated him on blood work and that we are still waiting for transfer to [facility]
--- NOTE | 2022-11-07 18:09 | PC.NURSE ---
1134 spoke with Jose Daniel from [facility] calling for update and states we are still waiting for a bed to open up
--- NOTE | 2022-11-07 18:11 | PC.NURSE ---
1800 pt had a good day sat in chair all day and was here for several hours pt ate well and had 1 bowel movement that was dark and tarry pt aware he is still waiting for bed to open up at [place]
[2022-11-07] MEDS: IPRATROPIUM 0.5 MG/ALBUTEROL SULFATE 2.5 MG AMPUL.NEB 3 ML INHALATION (20:37)
[2022-11-07 21:12] LABS: Hematocrit 23.9 % (37.0-46.0); Hemoglobin 7.1 g/dL (12.4-15.3)
[2022-11-07 21:38] LABS: NT Pro B Type Natriuretic Pept 4467 pg/mL (0-125)
[2022-11-08] VITALS (15 sets, daily range): BP systolic 102–156; BP diastolic 39–86; PULSE 79–97; RESP 18–20; TEMP 36.7–37; O2SAT 98–100
--- NOTE | 2022-11-08 00:32 | PC.NURSE ---
1900: pt resting in bed no requests at this time. 1999 pt resting in chair no requests at this time. 2100: pt requested a breathing treatment, MD and Cardio/pulmonary notified. 2200: pt resting with eyes closed in chair. 2300:pt resting with eyes closed in chair. 0000:pt resting with eyes closed in chair.
[2022-11-08] MEDS: ZOLPIDEM TARTRATE (*CRX) 5 MG TABLET PO ×2 (02:06→20:36)
--- NOTE | 2022-11-08 04:29 | PC.NURSE ---
0100 Pt resting with eyes dianne at this time 0200 pt provided water 0300 Pt resting with eyes dianne at this time 0400 Pt resting with eyes dianne at this time
--- NOTE | 2022-11-08 06:31 | PC.NURSE ---
0500 pt resting in chair playying on phone 0600 pt provided ice water, pt denied any other requests at this time.
--- NOTE | 2022-11-08 08:17 | ED.GENADULT ---
HPI - General Adult General Chief complaint: Shortness of Breath/Dyspnea Stated complaint: weakness, dizzy, pale, trouble breathing Time Seen by Provider: 11/05/22 18:12 Source: patient and family Mode of arrival: wheelchair Limitations: physical limitation History of Present Illness HPI narrative: Patient is a 67-year-old white male With history of GI bleed a month ago seen here and transferred to [facility] where he had endoscopy for upper and lower and then a capsule endoscopy all of which showed no source of bleeding. Presented here on November 05 with a hemoglobin of 5.4 and was transfused 3 units. He is awaiting transfer to [facility] for further evaluation. Care was transferred from Dr. Sandoval to my care at change of shift 7:00 a.m.. Related Data Home Medications Medication Instructions Recorded Confirmed cholecalciferol (vitamin D3) 125 125 mcg PO DAILY 08/30/22 11/05/22 mcg (5,000 unit) tablet (Vitamin D3) omega 1-yan-jpu-fish oil 60 mg-90 1 cap PO DAILY 08/30/22 11/05/22 mg-500 mg capsule (Fish Oil) vitamin B complex (B 1 tablet PO DAILY 08/30/22 11/05/22 Complex-Vitamin B12 tablet) zolpidem 10 mg tablet 10 mg PO HS 08/30/22 11/05/22 allopurinol 100 mg tablet 100 mg PO DAILY 10/05/22 11/05/22 ferrous sulfate 325 mg (65 mg 325 mg PO DAILY 10/05/22 11/05/22 iron) tablet pantoprazole 40 mg tablet,delayed 40 mg PO BID 10/05/22 11/05/22 release carvedilol 6.25 mg tablet 6.25 mg PO BID 10/29/22 11/05/22 lisinopril 10 mg tablet 10 mg PO DAILY 10/29/22 11/05/22 Allergies Allergy/AdvReac Type Severity Reaction Status Date / Time aspartame Allergy Severe Unknown Verified 11/05/22 18:45 cyclobenzaprine [Flexeril] Allergy Intermediate Unknown Verified 11/05/22 18:45 Penicillins Allergy Intermediate Unknown Verified 11/05/22 18:45 iohexol Allergy Hives Verified 11/05/22 18:45 [From contrast - CT, X-RAY] [facility] Past Medical History Medical History Acute blood loss anemia Blood thinned due to long-term anticoagulant use COVID-19 Dyslipidemia Essential hypertension Gout Grade III diastolic dysfunction Major depression, recurrent Morbid obesity Obstructive sleep apnea treated with BiPAP Occult blood in stools Pacemaker Rapid heart rate Type 2 diabetes mellitus Surgical History Surgical History History of aortic valve replacement (~2014) Hx of cholecystectomy S/P placement of cardiac pacemaker left side Family History Family History Father Kidney disease Mother Diabetes mellitus Heart disease Social History Social History Social History: Surrogate decision maker: Louisa Allred, . Code status: Full code. The patient has 2 children. The patient is retired from [employer] in [place]. The patient is a ex-smoker. He does not use any alcohol marijuana or illicit drugs. Smoking packs per day: 2 Smoking cigarettes per day: 40.0 Years smoked: 30 Smoking pack-years: 60.00 Smoking status: Never smoker Alcohol intake: never Substance use: never Substance use type: does not use Lack of Transportation: No Lack of Food: Never True Current Housing: I Do Not Have Housing Concerned About Future Housing: No Difficulty Paying Gas/Electric Bills: No Difficulty Paying for Meds: No Currently Unemployed: No Education: High School Diploma/GED Difficulty w/ Childcare or Family Care: No Living arrangements: with family Additional living arrangements comments: The patient lives in [place] with his .. Additional occupation/education comments: Retired. Gender identity (if verbalized by the patient): Male Spiritual care concerns: No Exam Narrative: Patient is a white male obese sitting in chair no appare
[2022-11-08] MEDS: SPIRONOLACTONE 12.5 MG TABLET PO (09:03)
[2022-11-08] MEDS: POTASSIUM CHLORIDE 20 MEQ TABLET PO (09:03)
[2022-11-08] MEDS: PANTOPRAZOLE 40 MG TABLET PO ×2 (09:03→20:31)
[2022-11-08] MEDS: SERTRALINE HCL 50 MG TABLET 100 MG PO (09:04)
[2022-11-08] MEDS: allopurinoL 100 MG TABLET PO (09:04)
[2022-11-08] MEDS: BUMETANIDE 1 MG TABLET 2 MG PO (09:05)
[2022-11-08 09:20] LABS: Hemoglobin 7.2 g/dL (12.4-15.3); Mean Corpuscular Hemoglobin 28.2 pg (27.0-31.0); Mean Corpuscular Volume 94.1 fL (78.0-102.0); Mean Platelet Volume 11.2 fl (8.7-11.0); Platelet Count Result 209 K/mm3 (150-420); Red Blood Count 2.55 M/mm3 (4.70-6.10); Red Cell Distribution Width 15.8 % (11.6-14.4)
[2022-11-08 09:31] LABS: Anion Gap 7 mmol/L (8-16); Blood Urea Nitrogen 37 mg/dL (7-18); Calcium 8.2 mg/dL (8.5-10.1); Carbon Dioxide 29 mmol/L (21-32); Chloride 101 mmol/L (98-108); Estimated CRCL calculation 60 ml/min; Estimated Glomerular Filt Rate 43; Glucose 176 mg/dL (70-99); Osmolality Calculated 296 mOsm/kg (285-295); Sodium 137 mmol/L (136-145)
--- NOTE | 2022-11-08 10:01 | PC.NURSE ---
0800 pt up sitting in chair and had breakfast
--- NOTE | 2022-11-08 10:01 | PC.NURSE ---
0910 pt had all home meds this am and continues to sit in chair
--- NOTE | 2022-11-08 10:03 | PC.NURSE ---
0959 [place] transfer service called by Jazmyne and she was updated with vitals and labs for today
[2022-11-08] MEDS: SODIUM CHLORIDE 0.9% IV 250 ML 30 ML IV CONT (12:20)
--- NOTE | 2022-11-08 15:12 | PC.NURSE ---
1505 unit of O+ blood given pt gudelia well with no side effects
[2022-11-08 15:34] LABS: Hematocrit 26.7 % (37.0-46.0); Hemoglobin 8.2 g/dL (12.4-15.3); Mean Corpuscular HGB Conc 30.7 g/dL (32.0-36.0); Mean Corpuscular Hemoglobin 28.5 pg (27.0-31.0); Mean Corpuscular Volume 92.7 fL (78.0-102.0); Mean Platelet Volume 11.5 fl (8.7-11.0); Platelet Count Result 222 K/mm3 (150-420); Red Blood Count 2.88 M/mm3 (4.70-6.10); Red Cell Distribution Width 15.2 % (11.6-14.4); White Blood Count 9.3 K/mm3 (4.8-10.8)
[2022-11-08] MEDS: IPRATROPIUM 0.5 MG/ALBUTEROL SULFATE 2.5 MG AMPUL.NEB 3 ML INHALATION (15:57)
[2022-11-08] MEDS: FUROSEMIDE INJ 40 MG/4 ML VIAL IV PUSH (16:02)
--- NOTE | 2022-11-08 19:31 | PC.NURSE ---
1900: pt resting comfortably no requests at this time.
== END 2022-11-08 22:43 | disposition short-term general hospital (02) ==
PROVIDERS: Emergency Medicine; Emergency Provider Emergency Medicine; PCP Nurse Practitioner Family
DX: K92.2 Gastrointestinal hemorrhage, unspecified (principal); D64.9 Anemia, unspecified; R06.00 Dyspnea, unspecified; I48.91 Unspecified atrial fibrillation; I13.0 Hypertensive heart and chronic kidney disease with heart failure and stage 1 through stage 4 chronic kidney disease, or unspecified chronic kidney disease; I50.30 Unspecified diastolic (congestive) heart failure; N18.9 Chronic kidney disease, unspecified; E11.22 Type 2 diabetes mellitus with diabetic chronic kidney disease; F17.210 Nicotine dependence, cigarettes, uncomplicated; Z79.85 Long-term (current) use of injectable non-insulin antidiabetic drugs; Z20.822 Contact with and (suspected) exposure to COVID-19; Z95.0 Presence of cardiac pacemaker
CPT/HCPCS: 36415; 36430; 71045; 80048; 80053; 83735; 83880; 84484; 85014; 85018; 85025; 85027; 85380; 85610; 85730; 86850; 86900; 86901; 86920; 93005; 94640; 96361; 96374; 96376; 99285; A9270; J1940; J7040; J7050; P9016; U0003; U0005

== ENCOUNTER 2023-01-25 15:35 | Outpatient (RCR) | payer OTHER, MEDICARE, SELFPAY ==
[2022-11-19 14:32] LABS: Hematocrit 29.6 % (37.0-46.0); Hemoglobin 8.7 g/dL (12.4-15.3)
[2022-11-30 12:41] LABS: Hematocrit 30.9 % (37.0-46.0); Hemoglobin 9.1 g/dL (12.4-15.3)
[2023-01-25 15:54] LABS: Hemoglobin 12.2 g/dL (12.4-15.3)
== END 2023-02-17 23:59 | disposition home or self-care (01) ==
LOC: CHSLAB 15:35
PROVIDERS: PCP Nurse Practitioner Family; Visit Provider Nurse Practitioner Family
DX: D64.9 Anemia, unspecified (principal)
CPT/HCPCS: 36415; 85014; 85018

== ENCOUNTER 2023-04-27 13:19 | Emergency (ER) | payer OTHER, MEDICARE, SELFPAY ==
[2023-04-27] VITALS (39 sets, daily range): BP systolic 98–131; BP diastolic 34–119; PULSE 68–89; RESP 14–24; TEMP 36.3–36.6; O2SAT 93–100
--- NOTE | ~2023-04-27 | XR_ITS ---
EXAMINATION: XR chest 2V DATE: 04/27/2023 14:04 INDICATION: Shortness of breath. TECHNIQUE: Frontal and lateral views of the chest were obtained. COMPARISON: Chest single view 11/05/22 FINDINGS: There is a small right pleural effusion. There are airspace opacities at right lung base. N o pneumothorax. Cardiomegaly is noted. There is a left chest wall pacer with leads in the right atriu m and right ventricle. Epicardial pacer wires are noted. Median sternotomy wires are noted. IMPRESSION: 1. Stable small right pleural effusion. 2. Stable airspace opacities at right lung base, consistent with atelectasis versus pneumonia. 3. Cardiomegaly. Reviewed, dictated and finalized at location E. IMPRESSION: 1. Stable small right pleural effusion. 2. Stable airspace opacities at right lung base, consistent with atelectasis ve rsus pneumonia. 3. Cardiomegaly.
--- NOTE | 2023-04-27 13:38 | ECG_ITS ---
Measurements Intervals [place] Rate: 64 P: [place]: 0 QRS: -83 QRSD: 217 T: 97 QT: 494 QTc: 513 Interpretive Statements ELECTRONIC VENTRICULAR PACEMAKER NO FURTHER INTERPRETATION IS POSSIBLE ATYPICAL ECG COMPARED TO ECG 11/05/2022 19:10:52 NO SIGNIFICANT CHANGES Electronically Signed On 04-28-2023 7:07:32 CDT by Romero Echavarria D.O.
[2023-04-27] MEDS: IPRATROPIUM 0.5 MG/ALBUTEROL SULFATE 2.5 MG AMPUL.NEB 3 ML INHALATION (13:48)
[2023-04-27 13:57] LABS: Basophils Absolute Auto 0.04 K/mm3 (0.00-0.10); Basophils Percent Auto 0.5 % (0.0-1.0); Eosinophils Absolute Auto 0.16 K/mm3 (0.02-0.50); Eosinophils Percent Auto 2.1 % (1.0-6.0); Hematocrit 43.3 % (37.0-46.0); Hemoglobin 13.7 g/dL (12.4-15.3); Immature Granulocyte Absolute 0.02 K/mm3 (0.00-0.00); Immature Granulocyte Percent A 0.3 % (0.0-0.0); Mean Corpuscular HGB Conc 31.6 g/dL (32.0-36.0); Mean Corpuscular Hemoglobin 31.4 pg (27.0-31.0); Mean Corpuscular Volume 99.1 fL (78.0-102.0); Mean Platelet Volume 12.7 fl (8.7-11.0); Monocytes Absolute Auto 0.68 K/mm3 (0.10-0.90); Monocytes Percent Auto 9.1 % (2.0-11.0); Neutrophils Absolute Auto 5.4 K/mm3 (1.7-7.2); Platelet Count Result 183 K/mm3 (150-420); Red Blood Count 4.37 M/mm3 (4.70-6.10); Red Cell Distribution Width 15.1 % (11.6-14.4); White Blood Count 7.5 K/mm3 (4.8-10.8)
--- NOTE | 2023-04-27 14:10 | ED.GENADULT ---
HPI - General Adult General Chief complaint: Shortness of Breath/Dyspnea Stated complaint: SOB Time Seen by Provider: 04/27/23 13:26 History of Present Illness HPI narrative: The patient is a 67-year-old male with history of COPD, atrial fibrillation, obstructive sleep apnea uses CPAP, prior pacemaker and prior surgical aortic valve replacement with a tissue valve. Also has chronic kidney disease, hypertension. Left ventricular ejection fraction is 40-45%, moderately reduced, by echocardiography March 2022. he used to be on anticoagulation but suffered a 16 unit packed red blood cell transfusion so he has been switched to aspirin 324 mg once daily. He is being considered for the Watchman left atrial appendage occlusion device. He has not had a device implanted yet. The patient has had intermittent chest discomfort and shortness of breath and coughing for the last 2 years. Symptoms seem to be a bit more prominent over the last few days come with right-sided and substernal chest discomfort described as sharp, associated with nausea but no vomiting. Cough is nonproductive. There is no wheezing. No stridor. No malaise. Does have some dizziness. Feels his heart pounding more forcefully. Related Data Home Medications Medication Instructions Recorded Confirmed cholecalciferol (vitamin D3) 125 125 mcg PO DAILY 08/30/22 04/27/23 mcg (5,000 unit) tablet (Vitamin D3) omega 3-ruv-qbm-fish oil 60 mg-90 1 cap PO DAILY 08/30/22 04/27/23 mg-500 mg capsule (Fish Oil) vitamin B complex (B 1 tablet PO DAILY 08/30/22 04/27/23 Complex-Vitamin B12 tablet) ferrous sulfate 325 mg (65 mg 325 mg PO DAILY 10/05/22 04/27/23 iron) tablet pantoprazole 40 mg tablet,delayed 40 mg PO BID 10/05/22 04/27/23 release aspirin 325 mg tablet 325 mg PO DAILY 01/28/23 04/27/23 Allergies Allergy/AdvReac Type Severity Reaction Status Date / Time aspartame Allergy Severe Unknown Verified 04/27/23 13:29 cyclobenzaprine [Flexeril] Allergy Intermediate Unknown Verified 04/27/23 13:29 Penicillins Allergy Intermediate Unknown Verified 04/27/23 13:29 iohexol Allergy Hives Verified 04/27/23 13:29 [From contrast - CT, X-RAY] Review of Systems Review of Systems: All systems reviewed & are unremarkable except as noted in HPI and below Constitutional: Constitutional: Denies chills, Denies excessive sweating, Denies fatigue, Denies fever(s), Denies headache(s) and Denies weakness Eyes: Eyes: Denies change in vision and Denies photophobia ENT: Denies dysphagia, Denies dizziness, Denies headache(s), Denies lip swelling, Denies nasal congestion, Denies sore throat and Denies tongue swelling Cardiovascular: Cardiovascular: Reports chest pain, Denies syncope, Denies rapid heart rate and Reports dyspnea Respiratory: Respiratory: Denies cough, Reports dyspnea and Denies wheezing Gastrointestinal: Gastrointestinal: Denies abdominal pain, Denies constipation, Denies dysphagia, Denies diarrhea, Reports nausea and Denies vomiting Genitourinary: Genitourinary: Denies hematuria, Denies dysuria, Denies urinary frequency and Denies urinary urgency Musculoskeletal: Musculoskeletal: Denies back pain, Denies myalgias, Denies arthralgias, Denies joint swelling and Denies numbness Integumentary/Breasts: Skin/Breast: Denies pruritus, Denies erythema and Denies rash Neurologic: Denies confusion, Denies dizziness, Denies syncope, Denies headache(s), Denies focal weakness, Denies numbness and Denies weakness Psychiatric: Psychiatric: Denies anxiety and Denies confusion Endocrine: Endocrine: Denies excessive sweating and Denies fatigue Hematologic/Lymphatic: Hematologic/Lymphatic: Denies easy bleeding and Denies easy bruising Allergic/Immunologic: Allergic/Immunologic: Denies lip swelling, Denies tongue swelling and Denies wheezing PMFSH Past Medical History Medical History Acute blood loss anemia Blood thin
[2023-04-27 14:21] LABS: D Dimer 0.89 mg/L (0.19-0.50)
[2023-04-27 14:22] LABS: Alanine Aminotransferase 16 U/L (16-63); Albumin Level 3.4 g/dL (3.4-5.0); Alkaline Phosphatase 91 U/L (46-116); Anion Gap 10 mmol/L (8-16); Aspartate Amino Transferase 15 U/L (15-37); Bilirubin,Total 0.7 mg/dL (0.00-1.00); Blood Urea Nitrogen 46 mg/dL (7-18); Calcium 9.3 mg/dL (8.5-10.1); Carbon Dioxide 28 mmol/L (21-32); Chloride 98 mmol/L (98-108); Estimated CRCL calculation 42 ml/min; Estimated Glomerular Filt Rate 28; Glucose 122 mg/dL (70-99); Magnesium 2.8 mg/dL (1.8-2.4); NT Pro B Type Natriuretic Pept 4748 pg/mL (0-125); Osmolality Calculated 294 mOsm/kg (285-295); Potassium 4.8 mmol/L (3.5-5.1); Sodium 136 mmol/L (136-145); Total Protein 7.7 g/dL (6.4-8.2)
[2023-04-27 14:26] LABS: Troponin I 285.8 ng/L (0.00-60.4)
[2023-04-27 17:35] LABS: Troponin I 297.7 ng/L (0.00-60.4)
== END 2023-04-27 17:47 | disposition home or self-care (01) ==
PROVIDERS: Emergency Provider Emergency Medicine; PCP Nurse Practitioner Family
DX: R07.9 Chest pain, unspecified (principal); I12.9 Hypertensive chronic kidney disease with stage 1 through stage 4 chronic kidney disease, or unspecified chronic kidney disease; E11.22 Type 2 diabetes mellitus with diabetic chronic kidney disease; N18.9 Chronic kidney disease, unspecified; J44.9 Chronic obstructive pulmonary disease, unspecified; I48.20 Chronic atrial fibrillation, unspecified; E78.5 Hyperlipidemia, unspecified; F17.210 Nicotine dependence, cigarettes, uncomplicated; Z79.82 Long term (current) use of aspirin
CPT/HCPCS: 36415; 71046; 80053; 83735; 83880; 84484; 85025; 85380; 93005; 94640; 99284

== ENCOUNTER 2023-06-28 09:26 | Emergency (ER) | payer OTHER, MEDICARE, SELFPAY ==
[2023-06-28] VITALS (78 sets, daily range): BP systolic 81–121; BP diastolic 35–98; PULSE 71–114; RESP 15–33; TEMP 36.6–36.9; O2SAT 89–100
--- NOTE | ~2023-06-28 | XR_ITS ---
EXAMINATION: XR chest 1V portable DATE: 06/28/2023 10:27 INDICATION: Dyspnea on exertion. Orthopnea. Upper back pain. TECHNIQUE: A single frontal view of the chest was obtained. COMPARISON: Chest 2 views 04/27/2023, chest CT 09/22/2022 FINDINGS: There is a small right pleural effusion. There are airspace opacities in right lower lung z one. No pneumothorax. Cardiomegaly is noted. There is a left chest wall pacer with leads in the right atrium and right ventricle. Epicardial pacer wires are noted. Median sternotomy wires are noted. IMPRESSION: 1. Small right pleural effusion. 2. Airspace opacities in right lower lung zone, consistent with atelectasis versus pneumonia. 3. Cardiomegaly. Reviewed, dictated and finalized at location A. IMPRESSION: 1. Small right pleural effusion. 2. Airspace opacities in right lower lung zone, consistent with atelectasis johanny sandro pneumonia. 3. Cardiomegaly.
--- NOTE | 2023-06-28 09:57 | ECG_ITS ---
Measurements Intervals [place] Rate: 77 P: [place]: 0 QRS: 234 QRSD: 182 T: -40 QT: 449 QTc: 508 Interpretive Statements ATRIAL FIBRILLATION ELECTRONIC VENTRICULAR PACEMAKER COMPLEXES RIGHT AXIS DEVIATION LEFT BUNDLE BRANCH BLOCK BASELINE ARTIFACT- III, AVL, AVF ABNORMAL ECG COMPARED TO ECG 04/27/2023 13:34:13 ATRIAL FIBRILLATION NOW PRESENT Electronically Signed On 06-28-2023 13:51:46 CDT by Romero Echavarria D.O.
--- NOTE | 2023-06-28 10:04 | ED.GENADULT ---
HPI - General Adult General Chief complaint: Extremity Injury, Lower <Jarret Lechuga MD - Last Filed: 06/29/23 06:46> Stated complaint: Cellulitis <Jarret Lechuga MD - Last Filed: 06/29/23 06:46> Time Seen by Provider: 06/28/23 09:42 <Jarret Lechuga MD - Last Filed: 06/29/23 06:46> History of Present Illness HPI narrative: 67yo man h/o CHF, CKD, atrial fibrillation and lower GI bleeding for which he received a Watchman left atrial appendage occlusion device, is now off of anticoagulation, on dual anti-platelet with aspirin and clopidogrel, presents with severe fatigue, weakness, and dyspnea. +black tarry stools for the past week. +increased lower extremity and abdominal swelling, nausea and poor appetite. Unable to tolerate laying down, so not sleeping the past few days. No fevers, chills, cough, congestion, or chest pain. Has cardiologists at [facility] and at [facility]. 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. Prefers to be admitted for acute illnesses at [facility]. <Jarret Lechuga MD - Last Filed: 06/29/23 06:46> Related Data Home medications: Home Medications Medication Instructions Recorded Confirmed cholecalciferol (vitamin D3) 125 125 mcg PO DAILY 08/30/22 06/28/23 mcg (5,000 unit) tablet (Vitamin D3) omega 4-crw-sjt-fish oil 60 mg-90 1 cap PO DAILY 08/30/22 06/28/23 mg-500 mg capsule (Fish Oil) vitamin B complex (B 1 tablet PO DAILY 08/30/22 06/28/23 Complex-Vitamin B12 tablet) pantoprazole 40 mg tablet,delayed 40 mg PO BID 10/05/22 06/28/23 release aspirin 325 mg tablet 81 mg PO DAILY 01/28/23 06/28/23 atorvastatin 10 mg tablet 10 mg PO DAILY 06/28/23 06/28/23 clopidogrel 75 mg tablet 75 mg PO DAILY 06/28/23 06/28/23 <Jarret Lechuga MD - Last Filed: 06/29/23 06:46> Allergies/adverse reactions: Allergies Allergy/AdvReac Type Severity Reaction Status Date / Time aspartame Allergy Severe Unknown Verified 06/28/23 09:40 cyclobenzaprine [Flexeril] Allergy Intermediate Unknown Verified 06/28/23 09:40 Penicillins Allergy Intermediate Unknown Verified 06/28/23 09:40 iohexol Allergy Hives Verified 06/28/23 09:40 [From contrast - CT, X-RAY] <Jarret Lechuga MD - Last Filed: 06/29/23 06:46> Review of Systems Review of Systems: All systems reviewed & are unremarkable except as noted in HPI and below <Jarret Lechuga MD - Last Filed: 06/29/23 06:46> Constitutional: Constitutional: Denies chills and Denies fever(s) <Jarret Lechuga MD - Last Filed: 06/29/23 06:46> ENT: Denies dysphagia and Denies dizziness <Jarret Lechuga MD - Last Filed: 06/29/23 06:46> Cardiovascular: Cardiovascular: Denies chest pain <Jarret Lechuga MD - Last Filed: 06/29/23 06:46> Respiratory: Respiratory: Denies chest congestion, Denies cough, Reports dyspnea and Denies wheezing <Jarret Lechuga MD - Last Filed: 06/29/23 06:46> Gastrointestinal: Gastrointestinal: Denies abdominal pain and Reports bloating <Jarret Lechuga MD - Last Filed: 06/29/23 06:46> Genitourinary: Genitourinary: Reports oliguria <Jarret Lechuga MD - Last Filed: 06/29/23 06:46> Musculoskeletal: Musculoskeletal: Denies back pain, Denies myalgias and Denies arthralgias <Jarret Lechuga MD - Last Filed: 06/29/23 06:46> Neurologic: Denies confusion, Denies dizziness, Denies focal weakness and Denies numbness <Jarret Lechuga MD - Last Filed: 06/29/23 06:46> PMFSH Past Medical History Medical History: Medical History Acute blood loss anemia Blood thinned due to long-term anticoagulant use COVID-19 Dyslipidemia Essential hypertension Gout Grade III diastolic dysfunction Major depression, recurrent Morbid obesity Obstructive sleep apnea treated with BiPAP Occult blood in stools Pacemaker Rapid heart rate Type 2 diabetes mellitus <Jarret Lechuga MD - Last Filed: 06/29/23 06:46> Surgical History Surgical History: S
[2023-06-28 10:27] LABS: Basophils Absolute Auto 0.08 K/mm3 (0.00-0.10); Basophils Percent Auto 0.9 % (0.0-1.0); Eosinophils Absolute Auto 0.42 K/mm3 (0.02-0.50); Eosinophils Percent Auto 4.5 % (1.0-6.0); Hematocrit 38.3 % (37.0-46.0); Hemoglobin 12.1 g/dL (12.4-15.3); Immature Granulocyte Absolute 0.03 K/mm3 (0.00-0.00); Immature Granulocyte Percent A 0.3 % (0.0-0.0); Immature Platelet Fraction Pct 10.7 % (1.0-7.0); Lymphocytes Absolute Auto 0.78 K/mm3 (1.10-4.50); Lymphocytes Percent Auto 8.3 % (18.0-42.0); Mean Corpuscular HGB Conc 31.6 g/dL (32.0-36.0); Mean Corpuscular Hemoglobin 31.3 pg (27.0-31.0); Mean Platelet Volume 14.8 fl (8.7-11.0); Monocytes Absolute Auto 0.62 K/mm3 (0.10-0.90); Monocytes Percent Auto 6.6 % (2.0-11.0); Neutrophils Absolute Auto 7.5 K/mm3 (1.7-7.2); Neutrophils Percent Auto 79.4 % (50.0-70.0); Platelet Count Result 134 K/mm3 (150-420); Red Blood Count 3.87 M/mm3 (4.70-6.10); Red Cell Distribution Width 15.2 % (11.6-14.4); White Blood Count 9.4 K/mm3 (4.8-10.8)
[2023-06-28 10:38] LABS: INR 1.3; Prothrombin Time 13.5 Seconds (9.50-12.10)
[2023-06-28] MEDS: FUROSEMIDE INJ 100 MG/10 ML VIAL 80 MG IV PUSH (10:42)
[2023-06-28 10:50] LABS: Alanine Aminotransferase 12 U/L (16-63); Albumin Level 3.7 g/dL (3.4-5.0); Alkaline Phosphatase 79 U/L (46-116); Anion Gap 12 mmol/L (8-16); Aspartate Amino Transferase 24 U/L (15-37); Bilirubin,Total 1.2 mg/dL (0.00-1.00); Blood Urea Nitrogen 144 mg/dL (7-18); Calcium 9.9 mg/dL (8.5-10.1); Carbon Dioxide 25 mmol/L (21-32); Chloride 99 mmol/L (98-108); Estimated CRCL calculation 32 ml/min; Estimated Glomerular Filt Rate 21; Glucose 115 mg/dL (70-99); Lactic Acid Reflex 1.7 mmol/L (0.4-2.0); Magnesium 3.1 mg/dL (1.8-2.4); NT Pro B Type Natriuretic Pept 6774 pg/mL (0-125); Osmolality Calculated 329 mOsm/kg (285-295); Potassium 4.8 mmol/L (3.5-5.1); Sodium 136 mmol/L (136-145); Total Protein 7.5 g/dL (6.4-8.2)
[2023-06-28 11:23] LABS: Appearance Urine Clear (Clear); Bilirubin Urine Negative (Negative); Blood Urine 1+ (Negative); Color Urine Light Yellow (Yellow); Glucose Urine UA Negative (Negative); Ketones Urine Negative (Negative); Leukocyte Esterase Ur Negative LEU/UL (Negative); Nitrate Urine Negative (Negative); Protein Urine Negative (Negative); Urobilinogen Urine 0.2 mg/dL (0.2-1.0)
[2023-06-28 11:30] LABS: Add Urine Microscopic? YES; Bacteria Urine Rare /hpf; RBC Urine 0-2 /hpf (0-2); Squamous Epithelial Cell Urine Occasional /hpf (Few); WBC Urine None seen /hpf (0-3)
[2023-06-28 12:29] LABS: Hematocrit 36.3 % (37.0-46.0); Hemoglobin 11.4 g/dL (12.4-15.3); Mean Corpuscular HGB Conc 31.4 g/dL (32.0-36.0); Mean Corpuscular Hemoglobin 31.5 pg (27.0-31.0); Mean Corpuscular Volume 100.3 fL (78.0-102.0); Mean Platelet Volume 14.7 fl (8.7-11.0); Platelet Count Result 125 K/mm3 (150-420); Red Blood Count 3.62 M/mm3 (4.70-6.10); Red Cell Distribution Width 15.3 % (11.6-14.4); White Blood Count 8.4 K/mm3 (4.8-10.8)
[2023-06-28 12:46] LABS: Troponin I 302.3 ng/L (0.00-60.4)
[2023-06-28] MEDS: CLOPIDOGREL BISULFATE 75 MG TABLET PO (18:27)
[2023-06-28] MEDS: QUEtiapine FUMARATE 25 MG TABLET 50 MG (18:28)
--- NOTE | 2023-06-28 18:37 | PC.NURSE ---
1730 hospital bed brought down for pt to be more comfortable pt waiting for bed placement for CHF and CRF pt [facility]
--- NOTE | 2023-06-28 19:30 | PC.NURSE ---
Addendum entered by Shira Toussaint RN 06/28/23 20:33: monitor showing A-fib at this time. Original Note: Report received, Upon assessment, pt sitting in chair p helped pt bathe. He ate about 15% of his dinner and is noted to be tachypneic and having some labored breathing in the chair p bathing. Pt placed back on monitor showing SR at this time and a BP of 81/35. Called for another RN to assist c use of gait belt and to help pt out of chair and back into bed. Pt struggling to breathe p returning to bed and noted very tachypneic. SPO2 at 90%. Pt assisted to sitting position of comfort. Noted to have diminshed BS bilat and using accessory muscles to breathe.
--- NOTE | 2023-06-28 19:45 | PC.NURSE ---
Pt repositioned in bed and then stated he wanted to sit bedside again to use urinal. Pt still remains tachypneic and having labored breathing. Call to ERP for request to insert gonzalez cath as pt is having difficulty moving, sitting and breathing and was given Bumex. Order obtained to insert gonzalez cath.
[2023-06-28] MEDS: BUMETANIDE 0.5 MG TABLET 2 MG PO (19:50)
--- NOTE | 2023-06-28 20:31 | PC.NURSE ---
16 F gonzalez placed s difficulty, immediate return of 400 ml cl yellow urine. Pt reporting being uncomfortable in the bed, wanting to sit up on side of bed. Pt assisted to bedside sitting, call lucero at side.
[2023-06-28] MEDS: QUEtiapine FUMARATE 25 MG TABLET 50 MG PO (20:58)
[2023-06-28] MEDS: traZODone HCL 50 MG TABLET 100 MG PO (20:59)
[2023-06-28] MEDS: carvediloL 6.25 MG TABLET PO (21:03)
--- NOTE | 2023-06-28 21:08 | PC.NURSE ---
Pt given HS meds, not wanting to use cpap at this time. He states he will apply it in a little while. He is reporting discomfort sitting in bed and is constantly wanting repositioned. Encouraged pt to lie on side, but states that is uncomfortable also. Explained that HS meds to help him sleep will hopefully work, lights dimmed and call lucero at pt side.
--- NOTE | 2023-06-28 21:16 | PC.NURSE ---
Call back from Beatrice at [facility], update given, pt still on waitlist for transfer bed tomorrow if available.
--- NOTE | 2023-06-28 22:28 | PC.NURSE ---
Pt still awake, unable to sleep and unable to get comfortable, wanting HOB up and then down, causing increased WOB c movement. Pt encouraged to relax and close eyes to try to rest c sleep aid medications given over an hr ago. continuing to monitor, VSS, call lucero at side.
[2023-06-29] VITALS (49 sets, daily range): BP systolic 95–157; BP diastolic 46–81; PULSE 69–92; RESP 14–36; O2SAT 90–100
--- NOTE | 2023-06-29 00:29 | PC.NURSE ---
Call placed to [facility] for cpap settings per ERP order. Pts cpap machine not working. Pt assisted to recliner chair x2 and use of gait belt, pt very unsteady on his feet and extremely tachypneic and weak. Assisted to sitting position pre pt request, pt has call lucero at side, continuing to monitor and await bed opening at another facility.
[2023-06-29] MEDS: LORazepam INJ (*CRX) 2 MG/ML VIAL 1 MG IV PUSH (00:48)
--- NOTE | 2023-06-29 01:29 | PCRCNOTE ---
Rt called to place pt on cpap due to patients home bipap not working. Patients home bipap was not plugged in, rt plugged in and bipap machine was working and functioning correctly. Pt then placed on his home bipap machine with current settings @ 01/09 with a 20min ramp. heart rate 80 respiratory rate 22 oxygen saturations 94%.
--- NOTE | 2023-06-29 01:34 | PC.NURSE ---
Call from [facility] for update, report given, still no beds available, will try to find bed placement at [facility] in AM.
--- NOTE | 2023-06-29 03:00 | PC.NURSE ---
Pt sleeping in recliner chair, VSS, Bipap in place, continuing to monitor. Afib on monitor. Spo2 at 94%.
--- NOTE | 2023-06-29 04:36 | PC.NURSE ---
Call from [facility], still no beds available, pt still on waitlist for transfer. Pt sleeping, Bipap in place. Continuing to monitor, monitor shows afib c occasional PVC.
--- NOTE | 2023-06-29 05:33 | PC.NURSE ---
Pt remains sitting in recliner chair, sleeping c his home bipap in place. Pt has no distress noted at this time. VSS, monitor continues to show afib c occ. multifocal PVC's. Call lucero at side.
--- NOTE | 2023-06-29 07:07 | PC.NURSE ---
Pt sleeping in recliner chair, report given to HERBER Ferrer and HERBER Anthony.
[2023-06-29 10:50] LABS: Anion Gap 9 mmol/L (8-16); Blood Urea Nitrogen 139 mg/dL (7-18); Calcium 9.5 mg/dL (8.5-10.1); Carbon Dioxide 31 mmol/L (21-32); Chloride 101 mmol/L (98-108); Estimated CRCL calculation 34 ml/min; Estimated Glomerular Filt Rate 22; Glucose 109 mg/dL (70-99); NT Pro B Type Natriuretic Pept 6773 pg/mL (0-125); Osmolality Calculated 338 mOsm/kg (285-295); Potassium 4.5 mmol/L (3.5-5.1); Sodium 141 mmol/L (136-145)
[2023-06-29] MEDS: BUMETANIDE 1 MG TABLET 2 MG PO ×2 (10:58→17:24)
[2023-06-29] MEDS: carvediloL 6.25 MG TABLET PO ×2 (10:59→17:25)
[2023-06-29] MEDS: ASPIRIN 81 MG ENTERIC TABLET PO (10:59)
[2023-06-29] MEDS: SPIRONOLACTONE 25 MG TABLET PO ×2 (11:00→17:25)
[2023-06-29] MEDS: PANTOPRAZOLE 40 MG TABLET PO ×2 (11:00→17:25)
--- NOTE | 2023-06-29 11:06 | PC.NURSE ---
plavix held for active GI bleed
[2023-06-29 13:15] LABS: Hematocrit 33.4 % (37.0-46.0); Hemoglobin 10.8 g/dL (12.4-15.3)
--- NOTE | 2023-06-29 13:15 | PC.NURSE ---
Patient ate most of his lunch, stated that he feels more rested this afternoon.
[2023-06-29] MEDS: FUROSEMIDE INJ 40 MG/4 ML VIAL 60 MG IV PUSH (14:21)
--- NOTE | 2023-06-29 14:40 | PC.NURSE ---
gonzalez cath assessed, some bloody discharge from urethra around cath. Noted some pinked tinged urine in bag, small clots from possible trauma from insertion and maintenance of gonzalez. ERP is aware, no concerns at this time.
--- NOTE | 2023-06-29 16:58 | PC.NURSE ---
Patient accepted to [id number], report number [phone]
[2023-06-29] MEDS: QUEtiapine FUMARATE 25 MG TABLET 50 MG PO (17:25)
== END 2023-06-29 18:20 | disposition short-term general hospital (02) ==
PROVIDERS: Emergency Medicine; Emergency Provider Emergency Medicine; PCP Nurse Practitioner Family
DX: I13.0 Hypertensive heart and chronic kidney disease with heart failure and stage 1 through stage 4 chronic kidney disease, or unspecified chronic kidney disease (principal); E11.22 Type 2 diabetes mellitus with diabetic chronic kidney disease; N18.4 Chronic kidney disease, stage 4 (severe); E87.79 Other fluid overload; I50.9 Heart failure, unspecified; E78.5 Hyperlipidemia, unspecified; F17.210 Nicotine dependence, cigarettes, uncomplicated
CPT/HCPCS: 36415; 71045; 80048; 80053; 81001; 83605; 83735; 83880; 84484; 85014; 85018; 85025; 85027; 85055; 85610; 86850; 86900; 86901; 93005; 96374; 96375; 99285; A9270; J1940; J2060